=== PATIENT | female | born 1955 | race Caucasian/White ===

== ENCOUNTER 2022-07-11 15:50 | Outpatient (REF) | payer MEDICARE, OTHER, SELFPAY ==
[2022-07-12 15:46] LABS: Occult Blood Negative
== END 2022-07-11 15:51 ==
LOC: LAB 15:50
PROVIDERS: PCP Family Medicine; Visit Provider Family Medicine
DX: Z12.11 Encounter for screening for malignant neoplasm of colon (principal)
CPT/HCPCS: G0328

== ENCOUNTER 2022-08-24 09:55 | Outpatient (OUT) | payer MEDICARE, OTHER, SELFPAY ==
--- NOTE | 2022-08-24 | VEIN_ITS ---
Patient: DOLLY RICHTER Exam Date: 08/24/2022 : 1955 Gender:F Ordering : DR DMITRI CARPENTER M.D. Admission #: [id number] Family : Order #: [id number] CLICK HERE TO VIEW EXAM RADIOLOGY REPORT PROCEDURE: [facility] - OFFICE VISIT INITIAL COMPARISON: None. PROGRESS NOTES: 66-year-old female who presents with a 20 year history of lower extremity varicose veins. The patient complains of bulging discolored veins with leg pain. The patient's symptoms are bilaterally symmetric. The patient describes the pain as aching and dull rating the pain as a 6 on a scale of 10. Patient symptoms have increased significantly in the past several years. The patient does have some partial relief with rest leg elevation and support stockings which she has worn for approximately 20 years on and off. The patient had injection sclerotherapy in the but no procedures since. The patient's symptoms are exacerbated by prolonged sitting and standing. The patient denies any signs and symptoms to suggest arterial ischemia. The patient describes a family history significant for varicose veins in her mother. Emphysema in both parents. . Multiple grandchildren. Social occasional alcohol use. No illicit drug use or smoking. The patient's current medical history is significant for hyperlipidemia for which she is on Lipitor. History of cervical cancer with hysterectomy. Bilateral cataract surgery. No history of deep venous thrombus or pulmonary embolus. See separate history and physical for medication list. Nursing notes were reviewed. After history and physical exam I discussed at length the pathophysiology of venous hypertension and possible treatments, therapies and strategies available. We divided her disease and functional and cosmetic disease. Her functional disease does meet criteria for treatment of the great saphenous veins however given the short segments of disease and her overall physical appearance and history I did not think that she needed treatment at this time. The patient was given the option of intravenous laser ablation or conservative treatment with compression stockings. I did recommend conservative treatment that the patient agreed with. Ultrasound venous reflux study performed the same day was discussed at length with the patient. The report demonstrates mild short-segment venous insufficiency proximal bilateral great saphenous veins. Mild saphenofemoral junction reflux. PHYSICAL EXAM: The right leg demonstrates no significant varicose veins. Moderate to large amount of reticular and spider veins. No active ulceration, subcutaneous edema or skin discoloration The left leg demonstrates no significant varicose veins. Moderate to large amount of reticular and spider veins. No active ulceration, subcutaneous edema or skin discoloration Both thighs, legs and feet were symmetrically warm to the touch. Good posterior tibial and dorsalis pedis pulses were present bilaterally. VEIN/VC Facility EST Comprehensive IMPRESSION: 1. Mild bilateral great saphenous vein venous insufficiency with mild saphenofemoral junction reflux 2. No significant lower extremity varicose veins 3. No significant lower extremity subcutaneous edema 4. No significant flow significant arterial disease 5. CEAP: C2, Ep, As, Pr PLAN: 1. Continued use of compression stockings 2. The patient was offered self pay sclerotherapy for reticular and spider veins 3. Elevated legs and increased physical activity for symptomatic relief 4. Follow up in one year Nurse notes, history and physical were reviewed and confirmed, see attached forms. The nurse was present throughout the physical exam and consultation Dictated by: Dmitri Carpenter MD on 08/24/2022 at 13:37 Approved by: Dmitri Carpenter MD on 08/24/2022 at 13:42
--- NOTE | 2022-08-24 | VEIN_ITS ---
Patient: DOLLY RICHTER Exam Date: 08/24/2022 : 1955 Gender:F Ordering : DR DMITRI CARPENTER M.D. Admission #: [id number] Family : Order #: [id number] CLICK HERE TO VIEW EXAM RADIOLOGY REPORT PROCEDURE: VC EXT VENOUS REFLUX CASEY LMTD COMPARISON: None. INDICATIONS: Pain due to varicose veins of bilateral legs I83.813 TECHNIQUE: Duplex imaging of the lower extremity to assess the deep and superficial venous system for the presence of deep or superficial venous incompetence and to document the location and severity of disease. The study includes evaluation of the great saphenous vein (GSV), anterior accessory saphenous vein (AASV) and small saphenous vein (SSV). Patient scanned in reverse Trendelenburg and standing. FINDINGS: RIGHT LOWER EXTREMITY: Saphenofemoral Junction Reflux: Yes 7.4mm 1.0 sec GSV: Diam (mm) Reflux/ Time (sec) Proximal Thigh 6.6 Yes 0.7 Mid Thigh 3.8 No Distal Thigh 4.2 No Prox Calf 2.4 No Mid Calf 1.9 No Saphenopopliteal Junction Reflux: 3.3mm Yes 0.7 SSV: Proximal Calf 1.8 No Mid Calf 1.9 No AASV: Not present Thrombi: No acute or chronic thrombus visualized Compressibility: Normal Flow: Normal Cage Loader: Prox/med calf 4.8mm with 0s reflux. Tech Note: Incompetent SFJ. Patent varicose vein mid/med calf 1.8mm with 0s reflux. Patent varicose vein mid/med thigh 1.7mm with 0.8s reflux. LEFT LOWER EXTREMITY: Saphenofemoral Junction Reflux: Yes 9.0 mm 0.9 sec GSV: Diam (mm) Reflux/Time (sec) Proximal Thigh 5.2 No Mid Thigh 3.1 Yes 0.8 Distal Thigh 2.6 No Prox Calf 2.7 No Mid Calf 1.4 Saphenopopliteal Junction Relux: 1.3 mm No SSV: Proximal Calf 1.0 No Mid Calf 1.1 No AASV: Not present Thrombi: Compressibility: Flow: Cage Loader: Mid/med calf 2.4mm with 0s reflux. Mid/med thigh 2.9mm with 0s reflux. Tech Note: Incompetent SFJ. No patent varicose veins to document. CONCLUSION: 1. Mild short segment venous insufficiency proximal bilateral great saphenous veins Dictated by: Dmitri Carpenter MD on 08/24/2022 at 11:25 Approved by: Dmitri Carpenter MD on 08/24/2022 at 11:27
== END 2022-08-24 09:56 | disposition home or self-care (01) ==
LOC: VC 09:55
PROVIDERS: PCP Radiology Diagnostic Radiology; Visit Provider Radiology Diagnostic Radiology
DX: I83.813 Varicose veins of bilateral lower extremities with pain (principal)
CPT/HCPCS: 93970; G0463

== ENCOUNTER 2022-11-29 11:11 | Outpatient (OUT) | payer MEDICARE, OTHER, SELFPAY ==
[2022-11-29 11:40] LABS: Basophils Percent Auto 0.7 % (0.2-2.0); Eosinophils Absolute Auto 0.2 10^3/uL (0.0-0.7); Eosinophils Percent Auto 2.8 % (0.9-7.0); Hemoglobin 14.4 g/dL (12.0-16.0); Immature Granulocytes Abs Auto 0.01 10^3/uL (0.00-0.03); Immature Granulocytes Pct Auto 0.2 % (0.0-0.5); Lymphocytes Absolute Auto 1.7 10^3/uL (1.2-3.8); Lymphocytes Percent Auto 29.6 % (20.5-60.0); Mean Corpuscular HGB Conc 34.3 g/dL (29.9-35.2); Mean Corpuscular Hemoglobin 32.2 pg (26.7-34.0); Mean Platelet Volume 8.3 fL (9.5-13.5); Monocytes Absolute Auto 0.4 10^3/uL (0.3-0.8); Neutrophils Absolute Auto 3.4 10^3/uL (1.4-6.5); Neutrophils Percent Auto 59.7 % (43.0-75.0); Platelet Count 340 10^3/uL (150-450); Red Blood Count 4.47 10^6/uL (4.20-5.40); White Blood Count 5.7 10^3/uL (4.0-11.0)
[2022-11-29 11:52] LABS: Estimated Average Glucose 100 mg/dL; Glycohemoglobin A1C 5.1 % (4.5-6.2)
[2022-11-29 11:54] LABS: Alanine Aminotransferase 33 U/L (14-59); Albumin Level 3.7 g/dL (3.4-5.0); Alkaline Phosphatase 75 U/L (46-116); Anion Gap 9.3; Aspartate Amino Transferase 18 U/L (15-37); BUN Creatinine Ratio 13.8; Bilirubin Total 0.6 mg/dL (0.2-1.0); Calcium 9.2 mg/dL (8.5-10.1); Carbon Dioxide 30.9 mmol/L (21.0-32.0); Chloride 103 mmol/L (98-107); Cholesterol 171 mg/dL (<=200); Estimated GFR (African America >60 (>=60); Estimated GFR (Non-African Ame >60 (>=60); Globulin 3.7 g/dL; Glucose 91 mg/dL (74-106); HDL Cholesterol 57 mg/dL (40-60); Potassium 4.2 mmol/L (3.5-5.1); Sodium 139 mmol/L (136-145); Total Protein 7.4 g/dL (6.4-8.2); Triglycerides 80 mg/dL (<=150)
== END 2022-11-29 11:12 | disposition home or self-care (01) ==
LOC: LAB 11:11
PROVIDERS: PCP Family Medicine; Visit Provider Family Medicine
DX: E78.5 Hyperlipidemia, unspecified (principal); R73.9 Hyperglycemia, unspecified; Z79.899 Other long term (current) drug therapy
CPT/HCPCS: 36415; 80053; 80061; 83036; 85025

== ENCOUNTER 2023-05-31 10:57 | Outpatient (OUT) | payer MEDICARE, OTHER, SELFPAY ==
[2023-05-31 12:01] LABS: Estimated Average Glucose 103 mg/dL; Glycohemoglobin A1C 5.2 % (4.5-6.2)
[2023-05-31 13:06] LABS: Anion Gap 12.9; Carbon Dioxide 30.2 mmol/L (21.0-32.0); Chloride 105 mmol/L (98-107); Glucose 94 mg/dL (74-106); Potassium 4.1 mmol/L (3.5-5.1); Sodium 144 mmol/L (136-145)
[2023-05-31 13:07] LABS: Alanine Aminotransferase 31 U/L (14-59); Albumin Level 3.6 g/dL (3.4-5.0); Alkaline Phosphatase 79 U/L (46-116); Aspartate Amino Transferase 17 U/L (15-37); BUN Creatinine Ratio 14.3; Bilirubin Total 0.3 mg/dL (0.2-1.0); Calcium 9.6 mg/dL (8.5-10.1); Chol HDL Ratio 2.6; Cholesterol 194 mg/dL (<=200); Estimated GFR (African America >60 (>=60); Estimated GFR (Non-African Ame >60 (>=60); Globulin 3.7 g/dL; HDL Cholesterol 76 mg/dL (40-60); Total Protein 7.3 g/dL (6.4-8.2); Triglycerides 105 mg/dL (<=150)
[2023-05-31 13:08] LABS: Thyroid Stimulating Hormone 2.102 uIU/mL (0.358-3.740)
[2023-05-31 13:42] LABS: Basophils Percent Auto 0.6 % (0.2-2.0); Eosinophils Absolute Auto 0.1 10^3/uL (0.0-0.7); Eosinophils Percent Auto 1.7 % (0.9-7.0); Hematocrit 42.8 % (36.0-48.0); Hemoglobin 14.1 g/dL (12.0-16.0); Immature Granulocytes Abs Auto 0.02 10^3/uL (0.00-0.03); Immature Granulocytes Pct Auto 0.4 % (0.0-0.5); Lymphocytes Absolute Auto 1.7 10^3/uL (1.2-3.8); Lymphocytes Percent Auto 32.3 % (20.5-60.0); Mean Corpuscular HGB Conc 32.9 g/dL (29.9-35.2); Mean Corpuscular Hemoglobin 31.2 pg (26.7-34.0); Mean Corpuscular Volume 94.7 fL (81.0-99.0); Mean Platelet Volume 8.6 fL (9.5-13.5); Monocytes Absolute Auto 0.3 10^3/uL (0.3-0.8); Monocytes Percent Auto 5.8 % (1.7-12.0); Neutrophils Absolute Auto 3.2 10^3/uL (1.4-6.5); Neutrophils Percent Auto 59.2 % (43.0-75.0); Platelet Count 371 10^3/uL (150-450); Red Blood Count 4.52 10^6/uL (4.20-5.40); Red Cell Distribution Width 12.3 % (11.0-15.0); White Blood Count 5.4 10^3/uL (4.0-11.0)
== END 2023-05-31 10:58 | disposition home or self-care (01) ==
LOC: LAB 11:00
PROVIDERS: PCP Family Medicine; Visit Provider Family Medicine
DX: R53.82 Chronic fatigue, unspecified (principal); Z79.899 Other long term (current) drug therapy; R73.9 Hyperglycemia, unspecified; E78.5 Hyperlipidemia, unspecified; R63.5 Abnormal weight gain
CPT/HCPCS: 36415; 80053; 80061; 82607; 82670; 83036; 84144; 84403; 84443; 85025

== ENCOUNTER 2023-05-31 11:04 | Outpatient (OUT) | payer MEDICARE, OTHER, SELFPAY ==
--- OUTSIDE RECORDS SUMMARY | 2023-05-31 11:25 | XMS_ITS | CCD ---
Author Organization [facility] Care Team Providers Care Cw Operator Name Role Phone Ricky Dong Unavailable Ricky Newton Unavailable LETITIA, DR GARCÍA Admitting Unavailable LETITIA, DR GARCÍA Attending Unavailable LETITIA, DR GARCÍA Primary Care Unavailable LETITIA, DR GARCÍA Consulting Unavailable LETITIA, DR GARCÍA Admitting Unavailable LETITIA, DR GARCÍA Attending Unavailable LETITIA, DR GARCÍA Primary Care Unavailable LETITIA, DR GARCÍA Consulting Unavailable CRYSTAL CONTRERAS Attending Unavailable Allergies Allergy Classification Reported Allergen(s) Allergy Type Date of Onset Reaction(s) Facility (18 sources) Propofol Drug Allergy asperated [employer] Other (18 sources) [facility] ([facility]) steroids caused eye pressure to go up Propensity to adverse reactions Unknown [employer] Other (1 source) cyclobenzaprine Drug Allergy [facility] (1 source) Phenprocoumon Drug Allergy [facility] (1 source) Propofol Drug Allergy [facility] Medications Current Medications Medication Drug Class(es) Dates Sig (Normalized) Sig (Original) acetaminophen 250 mg / aspirin 250 mg / caffeine 65 mg oral tablet (14 sources) Platelet Aggregation Inhibitor, Nonsteroidal Anti-inflammatory Drug, Central Nervous System Stimulant, Methylxanthine take 2 tablets by mouth every twenty-four hours Excedrin Migraine 250-250-65 MG 2 tablets Orally Once a day prn Active acetaminophen 300 mg / butalbital 50 mg / caffeine 40 mg oral capsule (2 sources) Barbiturate, Central Nervous System Stimulant, Methylxanthine Start: 12-04-2022 take 1 capsule by mouth every four hours Fioricet 50-300-40 MG 1 capsule Orally every 4 hrs for 5 days Nov, Active acyclovir 0.05 mg/mg topical ointment (18 sources) Herpesvirus Nucleoside Analog DNA Polymerase Inhibitor, Herpes Simplex Virus Nucleoside Analog DNA Polymerase Inhibitor, Herpes Zoster Virus Nucleoside Analog DNA Polymerase Inhibitor Start: 11-17-2020 Zovirax 5 % 1 application to affected area Externally five times a day as directed prn Nov, Active Start: 05-20-2015 Zovirax 5 % 1 application to affected area 5 times a day Externally Five times a day as directed May, Active Alive Once Daily Womens 50+ - (12 sources) Alive Once Daily Womens 50+ - as directed Orally Not-Taking Alive Once Daily Womens 50+ - as directed Orally Active ALPRAZolam 0.25 mg oral tablet (18 sources) Benzodiazepine Start: 05-18-2017 Xanax 0.25 MG 1 tablet Orally q8-12 hrs prn prn May, Active amoxicillin 875 mg oral tablet (3 sources) Penicillin-class Antibacterial Start: 05-12-2022 take 1 tablet by mouth every twelve hours Amoxicillin 875 MG 1 tablet Orally Twice a day for 10 days May, Active Apple Cider Vinegar (11 sources) Apple Cider Vinegar Active atorvastatin 10 mg oral tablet (18 sources) HMG-CoA Reductase Inhibitor take 1 tablet by mouth every twenty-four hours Lipitor 10 MG 1 tablet Orally Once a day Active Co Enzyme Q-10 (18 sources) Co Enzyme Q-10 Active Digestive Health Probiotic - (18 sources) Digestive Health Probiotic - as directed Orally Active famciclovir 500 mg oral tablet (18 sources) Herpes Simplex Virus Nucleoside Analog DNA Polymerase Inhibitor Start: 11-16-2020 take 1 tablet by mouth every eight hours Famciclovir 500 MG 1 tablet Orally tid for 10 days prn Nov, Active Fiorinal/Codeine #3 93-107-82-30 MG (16 sources) Start: 12-08-2022 take 1 capsule by mouth every four hours as needed Fiorinal/Codeine #3 31-374-21-30 MG 1 capsule Orally every 4 hrs prn for 5 days Dec, Active Start: 12-08-2016 take 1 capsule by [facility] every four hours as needed Fiorinal/Codeine #3 85-069-76-30 MG 1 capsule Orally every 4 hrs prn prn Dec, Active Start: 12-08-2016 take 1 capsule by mo uth every four hours as needed Fiorinal/Codeine #3 01-796-23-30 MG 1 capsule Orally every 4 hrs prn for 5 days prn Dec, Active Start: 12-08-2016 take 1 capsule by mo uth every four hours as needed Fiorinal/Codeine #3 34-553-01-30 MG 1 capsule Orally every 4 hrs prn Dec, Active Start: 12-08-2016 take 1 capsule by mo uth every four hours as needed Fiorinal/Codeine #3 [id number] MG 1 capsule Orally every 4 hrs prn for 5 days Dec, Active ibuprofen 200 mg oral tablet (18 sources) Nonsteroidal Anti-inflammatory Drug take 1 tablet by mouth three times daily at mealtime as needed Ibuprofen 200 MG 1 tablet with food or milk as needed Orally Three times a day prn Active Magnesium (18 sources) Magnesium 400 MG as directed Orally Active Multivitamin preparation (6 sources) Multivitamin Act vik Turmeric extract (11 sources) Turmeric Active vitamin B12 (12 sources) Vitamin B12 Vitamin B 12 Act vik Vitamin C 250 MG (3 sources) take 1 tablet by mouth once daily Vitamin C 250 MG 1 tablet Orally Once a day for 30 day(s) Active Vitamin D (18 sources) Vitamin D Active Completed/Discontinued Medications Medication Drug Class(es) Dates Sig (Normalized) Sig (Original) amoxicillin 875 mg / clavulanate 125 mg oral tablet (2 sources) Penicillin-class Antibacterial Start: 09-08-2020 take 1 tablet by mouth twice daily at mealtime Amoxicillin-Pot Clavulanate 875-125 MG 1 tablet Orally bid with food for 7 days Sep, Not-Taking ascorbic acid 250 mg chewable tablet (4 sources) Vitamin C take 1 tablet by mouth every twenty-four hours Vitamin C 250 MG 1 tablet Orally Once a day for 30 day(s) Not-Taking cefdinir 300 mg oral capsule (2 sources) Cephalosporin Antibacterial Start: 12-25-2019 take 2 capsules by mouth once daily at mealtime Cefdinir 300 MG 2 capsules Orally qd with food for 7 days Dec, Not-Taking diphenhydrAMINE hydrochloride 25 mg oral tablet (2 sources) Histamine-1 Receptor Antagonist Start: 11-10-2019 take 1 tablet by mouth every twenty-four hours diphenhydrAMINE HCl 25 MG 1 tablet at bedtime as needed Orally Once a day Nov, Not-Taking Elderberry preparation (7 sources) Elderberry 575 MG/5ML 5 ml Orally Not-Taking Elderberry 575 M G/5ML 5 ml Orally Active Ketorolac (15 sources) Nonsteroidal Anti-inflammatory Drug, Cyclooxygenase Inhibitor Start: 10-09-2013 Toradol per 15 mg Oct, 60 mg lansoprazole 30 mg delayed release oral capsule (9 sources) Proton Pump Inhibitor Start: 05-18-2021 take 1 capsule by mouth every twenty-four hours Prevacid 30 MG 1 capsule before a meal Orally Once a day for 30 day(s) May, Not-Taking [place] 3 1000 MG (2 sources) take 1 capsule by mouth once daily [place] 3 1000 MG 1 capsule Orally Once a day Not-Taking Problems Active Problems Problem Classification Problem Date Documented Da te Episodic/Chronic Acute and chronic tonsillitis (20 sources) Amygdalolith; Translations: [Other chronic diseases of tonsils and adenoids] Onset: 07-07-2021 Resolved: 07-07-2021 Chronic Anxiety disorders (20 sources) Anxiety; Translations: [Anxiety disorder, unspecified] Onset: 11-16-2020 Resolved: 07-07-2021 Chronic Cardiac dysrhythmias (3 sources) Palpitations; Translations: [Tachycardia, unspecified] Onset: 11-16-2020 Resolved: 05-18-2021 Episodic Diabetes mellitus without complication (4 sources) Hyperglycemia, unspecified; Translations: [Hyperglycemia R73.9] Onset: 11-16-2020 Resolved: 05-18-2021 Episodic Disorders of lipid metabolism (20 sources) Hyperlipidemia; Translations: [Hyperlipidemia, unspecified] Onset: 11-16-2020 Resolved: 05-18-2021 Chronic Genitourinary symptoms and ill-defined conditions (3 sources) Nocturia; Translations: [Hematuria, unspecified] Onset: 11-16-2020 Resolved: 05-18-2021 Episodic Headache; including migraine (20 sources) Migraine; Translations: [Migraine, unspecified, not intractable, without status migrainosus] Onset: 05-18-2021 Resolved: 05-18-2021 Chronic Neoplasms of unspecified nature or uncertain behavior (18 sources) Thrombocytosis; Translations: [Essential (hemorrhagic) thrombocythemia] Chronic Other aftercare (4 sources) Other senior living (current) drug therapy; Translations: [Other termite helper (current) drug therapy Z79.899] Onset: 11-16-2020 Resolved: 05-18-2021 Episodic Other connective tissue disease (1 source) Pain in leg, unspecified Episodic Other diseases of bladder and urethra (18 sources) Disorder of bladder; Translations: [Other specified disorders of bladder] Chronic Other nutritional; endocrine; and metabolic disorders (3 sources) Abnormal weight gain; Translations: [Weight gain R63.5] Onset: 11-16-2020 Resolved: 05-18-2021 Episodic Other nutritional; endocrine; and metabolic disorders (1 source) Abnormal weight loss; Translations: [ABNORMAL WEIGHT LOSS] Onset: 05-29-2022 Episodic Other screening for suspected conditions (not mental disorders or infectious disease) (3 sources) Encounter for screening mammogram for malignant neoplasm of breast; Translations: [Abnormal blood-gas level] Onset: 11-16-2020 Resolved: 05-18-2021 Episodic Other upper respiratory infections (18 sources) Sinusitis; Translations: [Chronic sinusitis, unspecified] Chronic Otitis media and related conditions (3 sources) Other specified disorders of Eustachian tube, right ear; Translations: [Otitis media, unspecified, unspecified ear] Episodic Residual codes; unclassified (13 sources) Sleep apnea; Translations: [Sleep apnea, unspecified] Chronic Residual codes; unclassified (13 sources) Daytime somnolence; Translations: [Other hypersomnia] Chronic Residual codes; unclassified (1 source) Sleep apnea, unspecified Onset: 07-07-2021 Resolved: 07-07-2021 Chronic Residual codes; unclassified (1 source) Other hypersomnia Onset: 07-07-2021 Resolved: 07-07-2021 Chronic Residual codes; unclassified (18 sources) Insomnia; Translations: [Insomnia, unspecified] Episodic Residual codes; unclassified (1 source) Other specified health status Episodic Residual codes; unclassified (1 source) Insomnia, unspecified Episodic Viral infection (4 sources) Herpesviral vesicular dermatitis; Translations: [Cold sore B00.1] Onset: 11-16-2020 Resolved: 05-18-2021 Episodic Past or Other Problems Problem Classification Problem Date Documented Da te Episodic/Chronic Headache; including migraine (1 source) Headache; Translations: [Cephalgia R51] Onset: 11-16-2020 Resolved: 11-16-2020 Episodic Malaise and fatigue (3 sources) Other fatigue; Translations: [Fatigue R53.83] Onset: 11-16-2020 Resolved: 08-02-2021 Episodic Other gastrointestinal disorders (1 source) Heartburn Onset: 05-18-2021 Resolved: 05-18-2021 Episodic Other inflammatory condition of skin (1 source) Lichen simplex chronicus Onset: 05-18-2021 Resolved: 05-18-2021 Episodic Other lower respiratory disease (2 sources) Snoring; Translations: [Snoring R06.83] Onset: 11-16-2020 Resolved: 08-02-2021 Episodic Other lower respiratory disease (2 sources) Apnea, not elsewhere classified; Translations: [Apnea R06.81] Onset: 11-16-2020 Resolved: 02-16-2021 Episodic Other upper respiratory infections (1 source) Acute sinusitis, unspecified Onset: 02-16-2021 Resolved: 02-16-2021 Episodic Residual codes; unclassified (1 source) Body mass index (BMI) 22.0-22.9, adult Onset: 08-02-2021 Resolved: 08-02-2021 Episodic Residual codes; unclassified (1 source) Body mass index (BMI) 23.0-23.9, adult Onset: 07-07-2021 Resolved: 07-07-2021 Episodic Results Test Name Value Interpretation Reference Range Facility CBC AUTO DIFFon 05-25-2022 BASO # 0.0 103/ul Normal 0.0-0.1 [facility] Comment on above: Performed By: #### C BC #### [facility] [address] [place] [address] Dr. Kristy Hansen Basophils/100 WBC (Bld) 0.5 % Normal 0.2-2.0 [facility] Comment on above: Performed By: #### C BC #### [facility] [address] [address] [address] Kristy Hansen EO # 0.2 103/ul Normal 0.0-0.7 [facility] Comment on above: Performed By: #### C BC #### [facility] [address] [place] [address] Dr. Kristy Hansen Eosinophils/100 WBC (Bld) 4.2 % Normal 0.9-7.0 [facility] Comment on above: Performed By: #### C BC #### [facility] [address] [place] [address] Dr. Kristy Hansen Erythrocyte distribution width (RBC) [Ratio] 12.5 % Normal 11.0-15.0 [facility] Comment on above: Performed By: #### C BC #### [facility] [address] [place] [address] Dr. Kristy Hansen Hematocrit (Bld) [Volume fraction] 43.6 % Normal 36.0-48.0 [facility] Comment on above: Performed By: #### C BC #### [facility] [address] [place] [address] Dr. Kristy Hansen Hemoglobin (Bld) [Mass/Vol] 15.0 g/dL Normal 12.0-16.0 [facility] Comment on above: Performed By: #### C BC #### [facility] [address] [place] [address] Dr. Kristy Hansen IG # 0.01 10e3/ul Normal 0.00-0.03 [facility] Comment on above: Performed By: #### C BC #### [facility] [address] [place] [address] Dr. Kristy Hansen IG % 0.2 % Normal 0.0-0.5 [facility] Comment on above: Performed By: #### C BC #### [facility] [address] [place] [address] Dr. Kristy Hansen LYMPH # 2.0 103/ul Normal 1.2-3.8 [facility] Comment on above: Performed By: #### C BC #### [facility] [address] [place] [address] Dr. Kristy Hansen Lymphocytes/100 WBC (Bld) 36.3 % Normal 20.5-60.0 [facility] Comment on above: Performed By: #### C BC #### [facility] [address] [place] [address] Dr. Kristy Hansen MANUAL DIFF REQ NO Normal [facility] Comment on above: Performed By: #### C BC #### [facility] [address] [place] [address] Dr. Kristy Hansen MCH (RBC) [Entitic mass] 31.7 pg Normal 26.7-34.0 [facility] Comment on above: Performed By: #### C BC #### [facility] [address] [place] [address] Dr. Kristy Hansen MCHC (RBC) [Mass/Vol] 34.4 g/dL Normal 29.9-35.2 [facility] Comment on above: Performed By: #### C BC #### [facility] [address] [place] [address] Dr. Kristy Hansen MCV (RBC) [Entitic vol] 92.2 fL Normal 81.0-99.0 [facility] Comment on above: Performed By: #### C BC #### [facility] [address] [place] [address] Dr. Kristy aHnsen MONO # 0.4 103/ul Normal 0.3-0.8 [facility] Comment on above: Performed By: #### C BC #### [facility] [address] [place] [address] Dr. Kristy Hansen Monocytes/100 WBC (Bld) 6.5 % Normal 1.7-12.0 [facility] Comment on above: Performed By: #### C BC #### [facility] [address] [place] [address] Dr. Kristy Hansen NEUT # 2.9 103/ul Normal 1.4-6.5 [facility] Comment on above: Performed By: #### C BC #### [facility] [address] [place] [address] Dr. Kristy Hansen Neutrophils/100 WBC (Bld) 52.3 % Normal 43.0-75.0 [facility] Comment on above: Performed By: #### C BC #### [facility] [address] [place] [address] Dr. Kristy Hansen Platelet mean volume (Bld) [Entitic vol] 7.9 fL Critically low 9.5-13.5 [facility] Comment on above: Performed By: #### C BC #### [facility] [address] [place] [address] Dr. Kristy Hansen PLT 310 103/ul Normal 150-450 [facility] Comment on above: Performed By: #### C BC #### [facility] [address] [place] [address] Dr. Kristy Hansen RBC 4.73 106/ul Normal 4.20-5.40 [facility] Comment on above: Performed By: #### C BC #### [facility] [address] [place] [address] Dr. Kristy Hansen WBC 5.5 103/ul Normal 4.0-11.0 [facility] Comment on above: Performed By: #### C BC #### [facility] [address] [place] [address] Dr. Kristy Hansen GLYCOHEMOGLOBIN A1Con 2022 ADA RECOMMENDATION SEE BELOW Normal [facility] Comment on above: Result Comment: ADA RECOMMENDED LIMIT 4.0 - 6.0 ADA THERAPEUTIC TARGET < 7.0 ACTION SUGGESTED > 7.0 Performed By: #### A 1C #### [facility] [address] [place] [address] Dr. Kristy Hansen Glucose [Mass/Vol] 105 mg/dL Normal [facility] Comment on above: Performed By: #### A 1C #### [facility] [address] [place] [address] Dr. Kristy Hansen HbA1c (Bld) [Mass fraction] 5.3 % Normal 4.5-6.2 [facility] Comment on above: Performed By: #### A 1C #### [facility] [address] [place] [address] Dr. Kristy Hansen LIPID PROFILEon 05-25-2022 CHOL-HDL RATIO NORM SEE BELOW Normal [facility] Comment on above: Result Comment: 3.3 - 4.4 LOW RISK 4.4 - 7.1 AVERAGE RISK 7.1 - 11.0 MODERATE RISK >11.0 HIGH RISK Performed By: #### L IPID, CMP, TSH #### [facility] [address] [address] [address] Kristy Hansen Cholesterol [Mass/Vol] 193 mg/dL Normal <=200 [facility] Comment on above: Performed By: #### L IPID, CMP, TSH #### [facility] [address] [address] [address] Kristy Hansen Cholesterol in HDL [Mass/Vol] 75 mg/dL Critically high 40-60 [facility] Comment on above: Performed By: #### L IPID, CMP, TSH #### [facility] [address] [address] [address] Kristy Hansen Cholesterol in LDL [Mass/Vol] 107.2 mg/dL Normal [facility] Comment on above: Performed By: #### L IPID, CMP, TSH #### [facility] [address] [address] [address] Kristy Hansen Cholesterol.total/Cho lesterol in HDL [Mass ratio] 2.6 {ratio} Normal [facility] Comment on above: Performed By: #### L IPID, CMP, TSH #### [facility] [address] [address] [address] Kristy Hansen HDL NORMAL > or = 60 mg/dl - LOW CARDIOVASCULAR RISK <40 mg/dl - HIGH CARDIOVASCULAR RISK Normal [facility] Comment on above: Performed By: #### L IPID, CMP, TSH #### [facility] [address] [address] [address] Kristy Hansen LDL CALC NORMAL SEE BELOW Normal [facility] Comment on above: Result Comment: <100 mg/dl OPTIMAL 100 - 129 mg/dl NEAR OR ABOVE OPTIMAL 130 - 159 mg/dl BORDERLINE HIGH 160 - 189 mg/dl HIGH >190 mg/dl VERY HIGH Performed By: #### L IPID, CMP, TSH #### [facility] [address] [address] [address] Kristy Hansen Triglyceride [Mass/Vol] 54 mg/dL Normal <=150 [facility] Comment on above: Performed By: #### L IPID, CMP, TSH #### [facility] [address] [address] [address] Kristy Hansen VLDL CALC 10.8 mg/dL Normal [facility] Comment on above: Performed By: #### L IPID, CMP, TSH #### [facility] [address] [address] [address] Kristy Hansen PROF 14(COMP METB)on 023 Albumin [Mass/Vol] 3.7 g/dL Normal 3.4-5.0 [facility] Comment on above: Performed By: #### L IPID, CMP, TSH #### [facility] [address] [place] [address] Dr. Kristy Hansen Albumin/Globulin [Mass ratio] 0.9 {ratio} Normal [facility] Comment on above: Performed By: #### L IPID, CMP, TSH #### [facility] [address] [place] [address] Dr. Kristy Hansen ALP [Catalytic activity/Vol] 82 U/L Normal 46-116 [facility] Comment on above: Performed By: #### L IPID, CMP, TSH #### [facility] [address] [place] [address] Dr. Kristy Hansen ALT [Catalytic activity/Vol] 41 U/L Normal 14-59 [facility] Comment on above: Performed By: #### L IPID, CMP, TSH #### [facility] [address] [address] [address] Kristy Hansen Anion gap [Moles/Vol] 12.2 mmol/L Normal [facility] Comment on above: Performed By: #### L IPID, CMP, TSH #### [facility] [address] [place] [address] Dr. Kristy Hansen AST [Catalytic activity/Vol] 23 U/L Normal 15-37 [facility] Comment on above: Performed By: #### L IPID, CMP, TSH #### [facility] [address] [place] [address] Dr. Kristy Hansen Bilirubin [Mass/Vol] 0.4 mg/dL Normal 0.2-1.0 [facility] Comment on above: Performed By: #### L IPID, CMP, TSH #### [facility] [address] [address] [address] Kristy Hansen Calcium [Mass/Vol] 9.5 mg/dL Normal 8.5-10.1 [facility] Comment on above: Performed By: #### L IPID, CMP, TSH #### [facility] [address] [address] [address] Kristy Hansen Chloride [Moles/Vol] 104 mmol/L Normal 98-107 [facility] Comment on above: Performed By: #### L IPID, CMP, TSH #### [facility] [address] [place] [address] Dr. Kristy Hansen CO2 [Moles/Vol] 28.9 mmol/L Normal 21.0-32.0 [facility] Comment on above: Performed By: #### L IPID, CMP, TSH #### [facility] [address] [place] [address] Dr. Kristy Hansen Creatinine [Mass/Vol] 0.69 mg/dL Normal 0.55-1.02 [facility] Comment on above: Performed By: #### L IPID, CMP, TSH #### [facility] [address] [place] [address] Dr. Kristy Hansen EGFR-AF AUSTRIAN >60 Normal >=60 [facility] Comment on above: Performed By: #### L IPID, CMP, TSH #### [facility] [address] [place] [address] Dr. Kristy Hansen EGFR-NON AF AUSTRIAN >60 Normal >=60 [facility] Comment on above: Performed By: #### L IPID, CMP, TSH #### [facility] [address] [place] [address] Dr. Kristy Hansen Globulin (S) [Mass/Vol] 3.9 g/dL Normal [facility] Comment on above: Performed By: #### L IPID, CMP, TSH #### [facility] [address] [address] [address] Kristy Hansen Glucose [Mass/Vol] 83 mg/dL Normal 74-106 [facility] Comment on above: Performed By: #### L IPID, CMP, TSH #### [facility] [address] [address] [address] Kristy Hansen Potassium [Moles/Vol] 4.1 mmol/L Normal 3.5-5.1 [facility] Comment on above: Performed By: #### L IPID, CMP, TSH #### [facility] [address] [address] [address] Kristy Hansen Protein [Mass/Vol] 7.6 g/dL Normal 6.4-8.2 [facility] Comment on above: Performed By: #### L IPID, CMP, TSH #### [facility] [address] [address] [address] Kristy Hansen Sodium [Moles/Vol] 141 mmol/L Normal 136-145 [facility] Comment on above: Performed By: #### L IPID, CMP, TSH #### [facility] [address] [address] [address] Kristy Hansen Urea nitrogen [Mass/Vol] 8.0 mg/dL Normal 7.0-18.0 [facility] Comment on above: Performed By: #### L IPID, CMP, TSH #### [facility] [address] [address] [address] Kristy Hansen Urea nitrogen/Creatinine [Mass ratio] 11.6 mg/mg Normal [facility] Comment on above: Performed By: #### L IPID, CMP, TSH #### [facility] [address] [address] [address] Kristy Hansen TSHon 05-25-2022 TSH 1.896 uIU/mL Normal 0.358-3.740 [facility] [facility] Comment on above: Performed By: #### L IPID, CMP, TSH #### [facility] [address] [address] [address] Kristy Hansen CBC AUTO DIFFon 11-17-2021 BASO # 0.0 103/ul Normal 0.0-0.1 [facility] Comment on above: Performed By: #### C BC #### [facility] [address] [place] [address] Dr. Kristy Hansen Basophils/100 WBC (Bld) 0.8 % Normal 0.2-2.0 [facility] Comment on above: Performed By: #### C BC #### [facility] [address] [place] [address] Dr. Kristy Hansen EO # 0.1 103/ul Normal 0.0-0.7 [facility] Comment on above: Performed By: #### C BC #### [facility] [address] [place] [address] Dr. Kristy Hansen Eosinophils/100 WBC (Bld) 2.5 % Normal 0.9-7.0 [facility] Comment on above: Performed By: #### C BC #### [facility] [address] [place] [address] Dr. Kristy Hansen Erythrocyte distribution width (RBC) [Ratio] 12.4 % Normal 11.0-15.0 [facility] Comment on above: Performed By: #### C BC #### [facility] [address] [place] [address] Dr. Kristy Hansen Hematocrit (Bld) [Volume fraction] 41.3 % Normal 36.0-48.0 [facility] Comment on above: Performed By: #### C BC #### [facility] [address] [place] [address] Dr. Kristy Hansen Hemoglobin (Bld) [Mass/Vol] 13.8 g/dL Normal 12.0-16.0 [facility] Comment on above: Performed By: #### C BC #### [facility] [address] [place] [address] Dr. Kristy Hansen IG # 0.01 10e3/ul Normal 0.00-0.03 [facility] Comment on above: Performed By: #### C BC #### [facility] [address] [place] [address] Dr. Kristy Hansen IG % 0.2 % Normal 0.0-0.5 [facility] Comment on above: Performed By: #### C BC #### [facility] [address] [place] [address] Dr. Kristy Hansen LYMPH # 2.0 103/ul Normal 1.2-3.8 [facility] Comment on above: Performed By: #### C BC #### [facility] [address] [place] [address] Dr. Kristy Hansen Lymphocytes/100 WBC (Bld) 40.3 % Normal 20.5-60.0 [facility] Comment on above: Performed By: #### C BC #### [facility] [address] [place] [address] Dr. Kristy Hansen MANUAL DIFF REQ NO Normal [facility] Comment on above: Performed By: #### C BC #### [facility] [address] [place] [address] Dr. Kristy Hansen MCH (RBC) [Entitic mass] 31.6 pg Normal 26.7-34.0 [facility] Comment on above: Performed By: #### C BC #### [facility] [address] [place] [address] Dr. Kristy Hansen MCHC (RBC) [Mass/Vol] 33.4 g/dL Normal 29.9-35.2 [facility] Comment on above: Performed By: #### C BC #### [facility] [address] [place] [address] Dr. Kristy Hansen MCV (RBC) [Entitic vol] 94.5 fL Normal 81.0-99.0 [facility] Comment on above: Performed By: #### C BC #### [facility] [address] [place] [address] Dr. Kristy Hansen MONO # 0.4 103/ul Normal 0.3-0.8 [facility] Comment on above: Performed By: #### C BC #### [facility] [address] [place] [address] Dr. Kristy Hansen Monocytes/100 WBC (Bld) 8.5 % Normal 1.7-12.0 [facility] Comment on above: Performed By: #### C BC #### [facility] [address] [place] [address] Dr. Kristy Hansen NEUT # 2.3 103/ul Normal 1.4-6.5 [facility] Comment on above: Performed By: #### C BC #### [facility] [address] [place] [address] Dr. Kristy Hansen Neutrophils/100 WBC (Bld) 47.7 % Normal 43.0-75.0 [facility] Comment on above: Performed By: #### C BC #### [facility] [address] [place] [address] Dr. Kristy Hansen Platelet mean volume (Bld) [Entitic vol] 8.3 fL Critically low 9.5-13.5 [facility] Comment on above: Performed By: #### C BC #### [facility] [address] [place] [address] Dr. Kristy Hansen PLT 312 103/ul Normal 150-450 [facility] Comment on above: Performed By: #### C BC #### [facility] [address] [place] [address] Dr. Kristy Hansen RBC 4.37 106/ul Normal 4.20-5.40 [facility] Comment on above: Performed By: #### C BC #### [facility] [address] [place] [address] Dr. Kristy Hansen WBC 4.8 103/ul Normal 4.0-11.0 [facility] Comment on above: Performed By: #### C BC #### [facility] [address] [place] [address] Dr. Kristy Hansen GLYCOHEMOGLOBIN A1Con 2021 ADA RECOMMENDATION SEE BELOW Normal [facility] Comment on above: Result Comment: ADA RECOMMENDED LIMIT 4.0 - 6.0 ADA THERAPEUTIC TARGET < 7.0 ACTION SUGGESTED > 7.0 Performed By: #### A 1C #### [facility] [address] [place] [address] Dr. Kristy Hansen Glucose [Mass/Vol] 100 mg/dL Normal [facility] Comment on above: Performed By: #### A 1C #### [facility] [address] [address] [address] Kristy Hansen HbA1c (Bld) [Mass fraction] 5.1 % Normal 4.5-6.2 [facility] Comment on above: Performed By: #### A 1C #### [facility] [address] [place] [address] Dr. Kristy Hansen LIPID PROFILEon 11-17-2021 CHOL-HDL RATIO NORM SEE BELOW Normal [facility] Comment on above: Result Comment: 3.3 - 4.4 LOW RISK 4.4 - 7.1 AVERAGE RISK 7.1 - 11.0 MODERATE RISK >11.0 HIGH RISK Performed By: #### C MP, LIPID #### [facility] [address] [place] [address] Dr. Kristy Hansen Cholesterol [Mass/Vol] 146 mg/dL Normal <=200 [facility] Comment on above: Performed By: #### C MP, LIPID #### [facility] [address] [place] [address] Dr. Kristy Hansen Cholesterol in HDL [Mass/Vol] 65 mg/dL Critically high 40-60 [facility] Comment on above: Performed By: #### C MP, LIPID #### [facility] [address] [place] [address] Dr. Kristy Hansen Cholesterol in LDL [Mass/Vol] 70.4 mg/dL Normal [facility] Comment on above: Performed By: #### C MP, LIPID #### [facility] [address] [place] [address] Dr. Kristy Hansen Cholesterol.total/Cho lesterol in HDL [Mass ratio] 2.2 {ratio} Normal [facility] Comment on above: Performed By: #### C MP, LIPID #### [facility] [address] [place] [address] Dr. Kristy Hansen HDL NORMAL > or = 60 mg/dl - LOW CARDIOVASCULAR RISK <40 mg/dl - HIGH CARDIOVASCULAR RISK Normal [facility] Comment on above: Performed By: #### C MP, LIPID #### [facility] [address] [place] [address] Dr. Kristy Hansen LDL CALC NORMAL SEE BELOW Normal [facility] Comment on above: Result Comment: <100 mg/dl OPTIMAL 100 - 129 mg/dl NEAR OR ABOVE OPTIMAL 130 - 159 mg/dl BORDERLINE HIGH 160 - 189 mg/dl HIGH >190 mg/dl VERY HIGH Performed By: #### C MP, LIPID #### [facility] [address] [place] [address] Dr. Kristy Hansen Triglyceride [Mass/Vol] 53 mg/dL Normal <=150 [facility] Comment on above: Performed By: #### C MP, LIPID #### [facility] [address] [place] [address] Dr. Kristy Hansen VLDL CALC 10.6 mg/dL Normal [facility] Comment on above: Performed By: #### C MP, LIPID #### [facility] [address] [place] [address] Dr. Kristy Hansen PROF 14(COMP METB)on 022 Albumin [Mass/Vol] 3.6 g/dL Normal 3.4-5.0 [facility] Comment on above: Performed By: #### C MP, LIPID #### [facility] [address] [place] [address] Dr. Kristy Hansen Albumin/Globulin [Mass ratio] 1.1 {ratio} Normal [facility] Comment on above: Performed By: #### C MP, LIPID #### [facility] [address] [place] [address] Dr. Kristy Hansen ALP [Catalytic activity/Vol] 66 U/L Normal 46-116 [facility] Comment on above: Performed By: #### C MP, LIPID #### [facility] [address] [place] [address] Dr. Kristy Hansen ALT [Catalytic activity/Vol] 27 U/L Normal 14-59 [facility] Comment on above: Performed By: #### C MP, LIPID #### [facility] [address] [place] [address] Dr. Kristy Hansen Anion gap [Moles/Vol] 9.1 mmol/L Normal [facility] Comment on above: Performed By: #### C MP, LIPID #### [facility] [address] [place] [address] Dr. Kristy Hansen AST [Catalytic activity/Vol] 15 U/L Normal 15-37 [facility] Comment on above: Performed By: #### C MP, LIPID #### [facility] [address] [place] [address] Dr. Kristy Hansen Bilirubin [Mass/Vol] 0.5 mg/dL Normal 0.2-1.0 [facility] Comment on above: Performed By: #### C MP, LIPID #### [facility] [address] [place] [address] Dr. Kristy Hansen Calcium [Mass/Vol] 9.1 mg/dL Normal 8.5-10.1 [facility] Comment on above: Performed By: #### C MP, LIPID #### [facility] [address] [place] [address] Dr. Kristy Hansen Chloride [Moles/Vol] 107 mmol/L Normal 98-107 [facility] Comment on above: Performed By: #### C MP, LIPID #### [facility] [address] [place] [address] Dr. Kristy Hansen CO2 [Moles/Vol] 29.9 mmol/L Normal 21.0-32.0 [facility] Comment on above: Performed By: #### C MP, LIPID #### [facility] [address] [place] [address] Dr. Kristy Hansen Creatinine [Mass/Vol] 0.70 mg/dL Normal 0.55-1.02 [facility] Comment on above: Performed By: #### C MP, LIPID #### [facility] [address] [place] [address] Dr. Kristy Hansen EGFR-AF AUSTRIAN >60 Normal >=60 [facility] Comment on above: Performed By: #### C MP, LIPID #### [facility] [address] [place] [address] Dr. Kristy Hansen EGFR-NON AF AUSTRIAN >60 Normal >=60 [facility] Comment on above: Performed By: #### C MP, LIPID #### [facility] [address] [address] [address] Kristy Hansen Globulin (S) [Mass/Vol] 3.3 g/dL Normal [facility] Comment on above: Performed By: #### C MP, LIPID #### [facility] [address] [address] [address] Kristy Hansen Glucose [Mass/Vol] 91 mg/dL Normal 74-106 [facility] Comment on above: Performed By: #### C MP, LIPID #### [facility] [address] [address] [address] Kristy Hansen Potassium [Moles/Vol] 4.0 mmol/L Normal 3.5-5.1 [facility] Comment on above: Performed By: #### C MP, LIPID #### [facility] [address] [place] [address] Dr. Kristy Hansen Protein [Mass/Vol] 6.9 g/dL Normal 6.4-8.2 [facility] Comment on above: Performed By: #### C MP, LIPID #### [facility] [address] [place] [address] Dr. Kristy Hansen Sodium [Moles/Vol] 142 mmol/L Normal 136-145 [facility] Comment on above: Performed By: #### C MP, LIPID #### [facility] [address] [place] [address] Dr. Kristy Hansen Urea nitrogen [Mass/Vol] 10.0 mg/dL Normal 7.0-18.0 [facility] Comment on above: Performed By: #### C MP, LIPID #### [facility] [address] [place] [address] Dr. Kristy Hansen Urea nitrogen/Creatinine [Mass ratio] 14.3 mg/mg Normal [facility] Comment on above: Performed By: #### C MP, LIPID #### [facility] [address] [place] [address] Dr. Kristy Hansen Urine Cultureon 07-28-2021 Bacteria identified Cx Nom (U) Reason for Exam Dysuria Urine <9,000 colonies/ml mixed bacterial skin contaminants 2 Days PERFORMED BY: [place] [address] PATHOLOGIST REHEATER ZAHIRA ENGLISH M.D. Normal [facility] Comment on above: Performed By: #### C UU #### [address] Auth for Release of Medical Recordson 12-12-2019 Auth for Release of Medical Records [id number]# 1.00CD:127 [facility] Urology Office/Clinic Noteon 12-04-2019 Urology Office/Clinic Note Chief Complaint 1 week follow up HPI Staff SP TURBT 11/12/19 1 week follow up w/ UA and PVR 0mL . pt having difficulty cathing and soreness. was able to cath sunday but it was very painful and she got out 200cc and hasn't tried since because of the pain. possible ne lubricated cathing supplies. Dysuria: _no pain/burning but only soreness Incomplete bladder emptying: _not all the time she does not feel she is empty Hematuria: _pt denies, trace- intact per UA Frequency: _lately yes Urgency: _no urgency Nocturia: _yes 1-2 times a night Stream: _not strong stream as it once was in august, start/stop hesitation starting this past weekend was the worst Leaking: _no leaking Post void dripping: _no dribbling Wearing pads/ Depends: _no protection Urge incontinence: _no Stress incontinence: _no Incontinence without Sensory Awareness: _no Abdominal pain: _when she presses on stomach near bladder she feels pressure Flank pain: _no back pain Sexual complaints: _ no History of Present Illness reviewed UA. Reviewed PVR. Reviewed op note. Review of Systems PHQ Score Initial Depression Screen Score: 0 ROS - Provider Constitutional: denies weight loss, denies hot flashes. Eyes: denies eye problems. Gastrointestinal: denies nausea, denies vomiting. Cardiovascular: denies chest pain or angina. Integumentary: no dryness Musculoskeletal: denies musculoskeletal symptoms. ENMT: denies otolaryngeal symptoms. Respiratory: no shortness of breath. Heme/Lymph: denies easy bleeding tendency, denies easy bruising tendency. Psychiatric: no confusion, no anxiety. Genitourinary: denies vaginal discharge, denies incontinence, denies dysuria, denies hematuria, denies urinary frequency, denies amenorrhea, denies menorrhagia, denies abnormal bleeding, denies pelvic pain, denies genital sores, and denies decreased libido. Physical Exam Vitals & Measurements HR: 16(Peripheral) BP: 134/83 HT: 162.0 cm HT: 162.0 cm WT: 62.0 kg WT: 62.0 kg BMI: 23.62 General Appearance: alert, no distress, well nourished, well developed male. Flank Pain: none. Bladder: nonpalpable. Assessment/Plan 1. Chronic cystitis (N30.20: Other chronic cystitis without hematuria) PVR today 194ml. UA today is negative for any infection. 2. Lesion of bladder (N32.9: Bladder disorder, unspecified) S/P TURBT done 11/12/19 and was Negative. 3. Asymptomatic microscopic hematuria (R31.21: Asymptomatic microscopic hematuria) UA shows TRACE in sample today, due to TURBT? 4. History of urinary retention (Z87.898: Personal history of other specified conditions) Pt is CIC. Pt states she was unable to CIC, and this past Sunday was the last time. Pt was given some catheters and will return in 1 year. I have reviewed the previous health record information and history for this patient from Dr. Caceres This was a quick visit. I cold not explain this patient's intermittent inability to void. Her lack of ability to void after UDS was repeated over night the other night. I tried to reassure patient but felt she needed catheters to be able to reliev herself at times. I feel her prior Reed Maker's plan of intermittent self cath every 1 to 2 weeks to assure she is not over filling may comfort her, relieve a complete inability to void at times, and provide comfort. I completed our companies catheter order forms for her and indicating that self lubricated catheters are typically not given unless patient's have repeated UTI's due to cathing thus necessitating the no touch catheter. Follow-up With When Contact Information Morris LOTT, Dimas Bowers In 1 [address] [place] [address]- [phone] Additional Instructions: Patient Education Hematuria, Adult I, Lisha Quintanilla, personally scribed for Dr. Caceres on 12/03/2019 10:17:06. . Documentation recorded by the scribe, Lisha Quintanilla, accurately reflects the services(s) I performed and decisions made by me. Authenticated by Dr. Caceres on 12/04/2019 17:04:58. Problem List/Past Medical History Ongoing Asymptomatic bacteriuria Asymptomatic microscopic hematuria Chronic cystitis Former smoker History of urinary retention Incomplete bladder emptying Lesion of bladder Nocturia Recurrent UTI Renal atrophy Renal mass Smoker Urgency of urination Urinary frequency Urinary hesitancy Urinary retention Historical No qualifying data Procedure/Surgical History Cystoscopy and bladder biopsy (11/12/2019), Cystoscopy (08/26/2019), Radical abdominal hysterectomy (06/06/1995), Cataract, Colonoscopy. Medications atorvastatin 10 mg Tab, Oral, Daily butalbital, As Directed CoQ10, Oral, Daily magnesium amino acids chelate, Oral [place]-3 predniSONE, Oral, Daily Vitamin D3 Allergies Diprivan (Aspiration) Flexeril (Unknown) Social History Alcohol Current, 1-2 times per month, 08/13/2019 Tobacco F (more content not included)... [facility] Comment on above: Result Comment: Elec tronically Signed By: Morris LOTT, Dimas Bowers\.br\Date and Time Signed: 12/04/19 17:07 EDT\.br\Electronically Co-Signed By: Lisha Quintanilla MA\.br\Date and Time Co-Signed: 12/03/19 10:17 EDT Ambulatory Clinical Summaryo n 12-03-2019 Ambulatory Clinical Summary {[id number]}CD:[id number] [facility] Patient Educationon 12-03-19 20 Patient Education Family Medicine Hematuria, Adult Hematuria (blood in your urine) can be caused by a bladder infection (cystitis ), kidney infection (pyelonephritis ), prostate infection (prostatitis ), or kidney stone. Infections will usually respond to antibiotics (medications which kill germs), and a kidney stone will usually pass through your urine without further treatment. If you were put on antibiotics, take all the medicine until gone. You may feel better in a few days, but take all of your medicine or the infection may not respond and become more difficult to treat. If antibiotics were not given, an infection did not cause the blood in the urine. A further work up to find out the reason may be needed. HOME CARE INSTRUCTIONS ? Drink lots of fluid, 3 to 4 quarts a day. If you have been diagnosed with an infection, cranberry juice is especially recommended, in addition to large amounts of water. ? Avoid caffeine, tea, and carbonated beverages, because they tend to irritate the bladder. ? Avoid alcohol as it may irritate the prostate. ? Only take xrbr-rdw-[id number] or prescription medicines for pain, discomfort, or fever as directed by your caregiver. ? If you have been diagnosed with a kidney stone follow your caregivers instructions regarding straining your urine to catch the stone. TO PREVENT FURTHER INFECTIONS: ? Empty the bladder often. Avoid holding urine for long periods of time. ? After a bowel movement, women should cleanse front to back. Use each tissue only once. ? Empty the bladder before and after sexual intercourse if you are a female. ? Return to your caregiver if you develop back pain, fever, nausea (feeling sick to your stomach), vomiting, or your symptoms (problems) are not better in 3 days. Return sooner if you are getting worse. If you have been requested to return for further testing make sure to keep your appointments. If an infection is not the cause of blood in your urine, X-rays may be required. Your caregiver will discuss this with you. SEEK IMMEDIATE MEDICAL CARE IF: ? You have a persistent fever over 102? F (38.9? C). ? You develop severe vomiting and are unable to keep the medication down. ? You develop severe back or abdominal pain despite taking your medications. ? You begin passing a large amount of blood or clots in your urine. ? You feel extremely weak or faint, or pass out. MAKE SURE YOU: ? Understand these instructions. ? Will watch your condition. ? Will get help right away if you are not doing well or get worse. Document Released: 01/22/2006 Document Revised: 04/15/2012 Document Reviewed: 09/10/2008 ExitCare? Patient Information ?2013 [employer]. [facility] Ambulatory Clinical Summaryo n 11-27-2019 Ambulatory Clinical Summary {[id number]}CD:[id number] [facility] Ambulatory Clinical Summary {[id number]}CD:[id number] [facility] Patient Educationon 11-27-19 Patient Education Acute Urinary Retention, Female You have been seen by a caregiver today because of your inability to urinate (pass your water). This is an uncommon problem in females. CAUSES It can be caused by: ? Infection. ? A side effect of a medication. ? A problem in a nearby organ that presses or squeezes on the bladder or the urethra (the tube that drains the bladder). ? Psychological problems. TREATMENT Treatment may involve a one-time placement of a tube in the bladder to empty it. It may be a problem that does not recur for years. You and your caregiver can decide how to handle this problem in follow-up. You may need to be referred to a specialist for additional examination and tests. HOME CARE INSTRUCTIONS If you are to leave the vasquez catheter (a long, narrow, hollow tube) in and go home with a drainage system, you will need to discuss the best course of action with your caregiver. While the catheter is in, maintain a good intake of fluids. Keep the drainage bag emptied and lower than your catheter. This is so contaminated (infected) urine will not flow back into your bladder. This could lead to a urinary tract infection. Only take jrkw-nxh-wjaegdr or prescription medicines for pain, discomfort, or fever as directed by your caregiver. SEEK IMMEDIATE MEDICAL CARE IF: You develop chills, fever, or show signs of generalized illness that occurs prior to seeing your caregiver. Document Released: 01/21/2007 Document Revised: 04/15/2012 Document Reviewed: 12/24/2009 ExitCare? Patient Information ?2013 [employer]. Normal [facility] Urology Office/Clinic Noteon 11-27-2019 Urology Office/Clinic Note Chief Complaint follow up to bladder bx HPI Staff 2 week follow up to bladder bx 11/12/2019 Dysuria: no Incomplete bladder emptying: no Hematuria: no Frequency depends on fluid intake Urgency: pt. states if she waits to long she will get the urge Nocturia: 2-3x a night Stream: pt. states at night she has a delay in her stream Leaking: no Post void dripping: no Wearing pads/ Depends: no Urge incontinence: no Stress incontinence: no Incontinence without Sensory Awareness: no Abdominal pain: no Flank pain: no Sexual complaints: no History of Present Illness Tests Reviewed: Reviewed UA, Reviewed OP report, Reviewed Path report, Reviewed PVR 432 mL I have reviewed the previous health record information and history for this patient from Dr. Caceres There have been no associated fever, chills, flank pain, or blood in the urine. Denies any urinary infections since last encounter. Review of Systems General: Fevers Denies , Weight Loss Denies , Weakness denies Hot Flashes Denies Skin: Rash Denies , Non-healed Skin Wound Denies Blood: Bruising Denies , Bleeding Denies , Anemia Denies Eyes: Eye Problems Denies Ears: Recent Hearing problems Denies Respiratory: Cough Denies , Coughing Blood Denies , Shortness of Breath Denies , Respiratory Infections Denies , Loud Snoring Denies Cardiovascular: Chest Pain Denies , Sensation of Irregular Heart Beat Denies Swelling in the legs Denies Pain in the legs with walking Denies Intestinal: Constipation Denies , Diarrhea Denies , Rectal Bleeding/Blood in Stool Denies , Hemorrhoids Denies , Indigestion Denies Nausea Denies , Vomiting Denies Genito-Urinary: Have you ever seen blood in your urine Denies , Have you ever been told there was blood in your urine Denies Vaginal Discharge Denies , Vaginal Bleeding Denies , Leaking urine(incontinence) Denies , Flank or Kidney pain Denies , Pain relating to your bladder filling or emptying Denies Burning with urination Denies Urinary tract infection Denies Kidney stone Denies Sexual difficulties Denies Muscle-skeletal: Joint pain Denies Back pain Denies Muscle Cramps Denies Nervous System: Headaches Denies Seizures Denies Blackouts Denies Numbness Denies Weakness in a certain area of your body Denies Tingling in a certain area of your body Denies Psychological: Confusion Denies , Anxiety Denies Other Free text: Physical Exam Vitals & Measurements HR: 106(Peripheral) RR: 16 BP: 132/82 HT: 162.0 cm HT: 162 cm WT: 62.0 kg WT: 62 kg BMI: 23.62 General Appearance: alert , no acute distress, well nourished, well developed female. Head: normocephalic . Eyes: normal orbit and globe. ENMT: normal examination of external ears. Chest: Lungs CTA, respirations non labored . Cardiovascular: regular rate and rhythm. Abdomen: soft, non distended, no tenderness, no mass or organomegaly, no hernia. Genitourinary: bladder nonpalpable, no flank tenderness. Lymph Nodes: unremarkable palpation of the cervical area. Skin: warm, dry, no bruising. Psychiatric: cooperative, affect appropriate for age, normal judgement, euthymic mood. Assessment/Plan 1. Recurrent UTI (N39.0: Urinary tract infection, site not specified) 2. Lesion of bladder (N32.9: Bladder disorder, unspecified) S/p Cysto, B/L retrogrades, bladder bx w/ fulguration done 11/12/2019. The pathology report was reviewed with the patient in detail today. There is no evidence of malignancy and no further evaluation of the tissue removed is planned. All questions were answered and the report discussed in terms that the patient could understand. Focal thick bladder wall. 3. Chronic cystitis (N30.20: Other chronic cystitis without hematuria) per pathology 4. Nocturia (R35.1: Nocturia) Mild intermittent 2-3x a night 5. Urinary frequency (R35.0: Frequency of micturition) mild intermittent, varies on fluid intake 6. Urgency of urination (R39.15: Urgency of urination) Mild intermittent if she waits to long 7. History of urinary retention (Z87.898: Personal history of other specified conditions) PVR 432 mL pt voided again and another PVR was done results were 228 mL Patient to start timed voids q2-3h during waking hours whether the urge to void is present or not. Discussed with pt double voiding to help lessen the amount of urine in her bladder, pt okay to CIC if unable to void. Discussed getting a renal US once a year to ensure urine isn't backing up into the kidneys. Pt is in agreement with this plan. 8. Urinary hesitancy (R39.11: Hesitancy of micturition) Intermittent at night Former smoker (Z87.891: Personal history of nicotine dependence) 64 YO female with a history of infrequent CIC for retention in the clinical setting a very thick bladder dome s/p biopsy with inability to void per a brief review of a UDS assessment that I felt was different that I recalled from the day of, but did confirm with the patient that she could not void after (more content not included)... Normal [facility] Comment on above: Result Comment: Elec tronically Signed By: Morris LOTT, Dimas Bowers\.br\Date and Time Signed: 11/27/19 15:53 EDT\.br\Electronically Co-Signed By: Zari Campos MA\.br\Date and Time Co-Signed: 11/27/19 14:46 EDT Vital Signs Date Time Vital Sign Value Performing Clinician Facility 12-04-2022 11:10-0400 Body height 162.56 cm Ricky Dong Other [facility] Other 12-04-2022 11:10-0400 Body mass index (BMI) [Ratio] 21.97 kg/m2 Ricky Dong Other [facility] Other 12-04-2022 11:10-0400 Body temperature 98.3 [degF] Ricky Dong Other [facility] Other 12-04-2022 11:10-0400 Body weight 58.06 kg Ricky Dong Other [facility] Other 12-04-2022 11:10-0400 Diastolic blood pressure 76 mm[Hg] Ricky Dong Other [facility] Other 12-04-2022 11:10-0400 Respiratory rate 18 /min Ricky Dong Other [facility] Other 12-04-2022 11:10-0400 SaO2% (BldA) [Mass fraction] 99 % Ricky Dong Other [facility] Other 12-04-2022 11:10-0400 Systolic blood pressure 122 mm[Hg] Ricky Dong Other [facility] Other 05-12-2022 12:10-0400 Body height 162.56 cm Ricky Dong Other [facility] Other 05-12-2022 12:10-0400 Body mass index (BMI) [Ratio] 22.14 kg/m2 Ricky Dong Other [facility] Other 05-12-2022 12:10-0400 Body temperature 98.2 [degF] Ricky Dong Other [facility] Other 05-12-2022 12:10-0400 Body weight 58.51 kg Ricky Dong Other [facility] Other 05-12-2022 12:10-0400 Diastolic blood pressure 74 mm[Hg] Ricky Dong Other [facility] Other 05-12-2022 12:10-0400 Respiratory rate 18 /min Ricky Dong Other [facility] Other 05-12-2022 12:10-0400 SaO2% (BldA) [Mass fraction] 99 % Ricky Dong Other [facility] Other 05-12-2022 12:10-0400 Systolic blood pressure 118 mm[Hg] Ricky Dong Other [facility] Other 08-02-2021 12:00-0400 Body height 162.56 cm Ricky Newton Other [facility] Other 08-02-2021 12:00-0400 Body mass index (BMI) [Ratio] 22.14 kg/m2 Ricky Newton Other [facility] Other 08-02-2021 12:00-0400 Body temperature 98.4 [degF] Ricky Newton Other [facility] Other 08-02-2021 12:00-0400 Body weight 58.51 kg Ricky Newton Other [facility] Other 08-02-2021 12:00-0400 Diastolic blood pressure 65 mm[Hg] Ricky Newton Other [facility] Other 08-02-2021 12:00-0400 SaO2% (BldA) [Mass fraction] 100 % Ricky Newton Other [facility] Other 08-02-2021 12:00-0400 Systolic blood pressure 114 mm[Hg] Ricky Newton Other [facility] Other 07-07-2021 15:30-0400 Body height 162.56 cm Ricky Newton Other [facility] Other 07-07-2021 15:30-0400 Body mass index (BMI) [Ratio] 23 kg/m2 Ricky Newton Other [facility] Other 07-07-2021 15:30-0400 Body temperature 96.8 [degF] Ricky Newton Other [facility] Other 07-07-2021 15:30-0400 Body weight 60.78 kg Ricky Newton Other [facility] Other 07-07-2021 15:30-0400 Diastolic blood pressure 70 mm[Hg] Ricky Newton Other [facility] Other 07-07-2021 15:30-0400 SaO2% (BldA) [Mass fraction] 100 % Ricky Newton Other [facility] Other 07-07-2021 15:30-0400 Systolic blood pressure 132 mm[Hg] Ricky Newton Other [facility] Other 05-18-2021 11:30-0400 Body height 162.56 cm Ricky Dong Other [facility] Other 05-18-2021 11:30-0400 Body mass index (BMI) [Ratio] 24.03 kg/m2 Ricky Dong Other [facility] Other 05-18-2021 11:30-0400 Body temperature 97.7 [degF] Ricky Dong Other [facility] Other 05-18-2021 11:30-0400 Body weight 63.5 kg Ricky Dong Other [facility] Other 05-18-2021 11:30-0400 Diastolic blood pressure 76 mm[Hg] Ricky Dong Other [facility] Other 05-18-2021 11:30-0400 Respiratory rate 16 /min Ricky Dong Other [facility] Other 05-18-2021 11:30-0400 SaO2% (BldA) [Mass fraction] 97 % Ricky Dong Other [facility] Other 05-18-2021 11:30-0400 Systolic blood pressure 116 mm[Hg] Ricky Dong Other [facility] Other 11-16-2020 11:30-0400 Body height 162.56 cm Ricky Dong Other [facility] Other 11-16-2020 11:30-0400 Body mass index (BMI) [Ratio] 22.83 kg/m2 Ricky Dong Other [facility] Other 11-16-2020 11:30-0400 Body weight 60.33 kg Ricky Dong Other [facility] Other 11-16-2020 11:30-0400 Diastolic blood pressure 78 mm[Hg] Ricky Dong Other [facility] Other 11-16-2020 11:30-0400 Respiratory rate 18 /min Ricky Dong Other [facility] Other 11-16-2020 11:30-0400 SaO2% (BldA) [Mass fraction] 99 % Ricky Dong Other [facility] Other 11-16-2020 11:30-0400 Systolic blood pressure 130 mm[Hg] Ricky Dong Other [facility] Other Encounters Encounter Date Encounter Type Care Provider Facility Start: 12-12-2022 End: 12-13-2022 ambulatory CRYSTAL CONTRERAS Not Available Start: 12-08-2022 End: 12-08-2022 ambulatory Ricky Dong Other [facility] Other Start: 12-08-2022 Telephone encounter Ricky Dong [facility] Start: 12-04-2022 End: 12-04-2022 ambulatory Ricky Dong Other [facility] Other Start: 12-04-2022 Office outpatient vi sit 25 minutes Ricky Dong [facility] Start: 12-04-2022 Telephone encounter Ricky Dong [facility] Start: 09-07-2022 End: 09-07-2022 ambulatory Ricky Dong Other [facility] Other Start: 09-07-2022 Telephone encounter Ricky Dong [facility] [place] Start: 08-29-2022 End: 08-29-2022 ambulatory Ricky Dong Other [facility] Other Start: 08-29-2022 Telephone encounter Rikcy Dong [facility] Start: 05-25-2022 End: 05-26-[address] RICKY DONG Facility: Start: 05-16-2022 End: 05-16-2022 ambulatory Ricky Dong Other [facility] Other Start: 05-16-2022 Telephone encounter Ricky Dong [facility] Start: 05-12-2022 End: 05-12-2022 ambulatory Ricky Dong Other [facility] Other Start: 05-12-2022 Office outpatient vi sit 15 minutes Ricky Dong [facility] Start: 05-12-2022 Telephone encounter Ricky Dong [facility] [place] Start: 04-18-2022 End: 04-18-2022 ambulatory Ricky Dong Other [facility] Other Start: 04-18-2022 Telephone encounter Ricky Dong [facility] [place] Start: 02-07-2022 End: 02-07-2022 ambulatory Ricky Dong Other [facility] Other Start: 02-07-2022 Telephone encounter Ricky Dong [facility] [place] Start: 11-17-2021 End: 11-18-[address] RICKY DONG Facility:[facility] Start: 08-02-2021 End: 08-02-2021 ambulatory Ricky Newton Other [facility] Other Start: 08-02-2021 Office outpatient vi sit 25 minutes Ricky Aman [facility] Start: 07-07-2021 End: 07-07-2021 ambulatory Ricky Newton Other [facility] Other Start: 07-07-2021 Office outpatient ne w 45 minutes Ricky Newton [facility] Start: 05-23-2021 End: 05-23-2021 ambulatory Ricky Dong Other [facility] Other Start: 05-23-2021 Telephone encounter Ricky Dong [facility] [place] Start: 05-18-2021 End: 05-18-2021 ambulatory Ricky Dong Other [facility] Other Start: 05-18-2021 Office outpatient vi sit 25 minutes Ricky Dong [facility] [place] Start: 02-16-2021 End: 02-16-2021 ambulatory Ricky Dong Other [facility] Other Start: 02-16-2021 Telephone encounter Ricky Dong [facility] [place] Start: 11-16-2020 Office outpatient vi sit 25 minutes Ricky Dong [facility] [place] Start: 11-16-2020 Telephone encounter Ricky Dong [facility] [place] Immunizations Immunization Date Immunization Notes Care Provider Fa cili 05-18-2021 Shingrix 50 MCG/0.5M L; Translations: [Shingrix 50 MCG/0.5ML] Ricky Dong Other [facility] Other 04-07-2020 COVID-19 Vaccine Pfi zer - Documentation Purposes Only Ricky Dong Other [facility] Other 03-16-2020 COVID-19 Vaccine Pfi zer - Documentation Purposes Only Ricky Dong Other [facility] Other 10-09-2013 Toradol per 15 mg Ricky Talley in Other [facility] Other Payers Date Payer Category Payer Medicare [id number] 2.1 [id number] 1961 Unknown [id number] 1955 Unknown [id number] 1955 Unknown [id number] 1955 Unknown [id number] Social History Date Type Detail Facility Unknown if ever smoked [facility] Other Sex Assigned At Sex Assigned At Bir th [facility] Other Clinical Notes 11-16-2020 to 12-11-2022 Note Date & Type Note Facility 12-11-2022 History general N arrative - Reported Type Medical History Hysterectomy 1995; Barbara Casarez due to cervical cancer, it was all contained with hysterectomy, no longer follows with Dr. Casarez Medical History Mammogram; [facility] Medical History No history of Stress Test, CT Scan Abdomen or Pelvis Medical History History of Chicken Pox as a Chil d Medical History Colonoscopy 03-04-12; Dr. Ayana fonseca Medical History Flu Vaccine and 2015 Medical History Hyperlipidemia Medical History Dermalgraphia Medical History migraines Surgical History Total Hysterectomy; Dr. Casarez- due to cervical cancer 1995 Surgical History Colonoscopy, Dr. Nicolas / No rmal 03-04-12 Hospitalization History see above surgical histo ry 1995 [facility] Other 11-03-2023 History general Narrative - Reported* Type Description Date Medical History Hysterectomy 1995; Barbara Casarez due to cervical cancer, it was all contained with hysterectomy, no longer follows with Dr. Casarez Medical History Mammogram; , [facility] Medical History No history of Stress Test, CT Sc an Abdomen or Pelvis Medical History History of Chicken Pox as a Chil d Medical History Colonoscopy 03-04-12; Dr. Ayana fonseca Medical History Flu Vaccine and 2015 Medical History Hyperlipidemia Medical History Dermalgraphia Medical History migraines Surgical History Total Hysterectomy; Dr. Casarez- due to cervical cancer 1995 Surgical History Colonoscopy, Dr. Nicolas / No rmal 03-04-12 Hospitalization History see above surgical histo ry 1995 [facility] Other 11-03-2023 Evaluation note* Encounter Date Diagnosis Assessment Notes Treatment Notes Treatment Clinical Notes Dec, Migraine (ICD-10 - G43.909) [facility] Other 10-30-2023 Evaluation note* Encounter Date Diagnosis Assessment Notes Treatment Notes Treatment Clinical Notes Nov, Hyperlipidemia (ICD-10 - E78.5) Discussed cholesterol results with patient today. Total is 171. HDL is 57. LDL is 98. Triglycerides are 80. VLDL is 16. She is taking the Lipitor every other day and voices that sometimes she forgets to take it every other day. I did recommend that she continue to take it every other day. She does take the Co-Q-10 along with this. She eats a very healthy diet and avoids sugars and should continue with this. Nov, Hyperglycemia (ICD-10 - R73.9) Discussed her blood sugar readings today. Her glucose is 91. HgA1C is 5.1 which is normal. Continue to monitor diet and stay active. She is to continue with her healthy lifestyle. Nov, Leg pain (ICD-10 - M79.606) She has shooting pain between her left groin and left thigh for years that comes and goes. This pain occurs mostly when sitting she thinks. She had a hysterectomy in 1995 due to cervical cancer and is not sure if this is causing the pain or not. It will feel like pins and needles and only last a couple of seconds and then be gone. She describes it as a muscle spasm although it is likely nerve related. She has had this for at least 10 years and maybe only once a month but recently it has been happening more often. I did advise her that this could be coming from her back but the pain does not wrap arond her leg. If this continues to occur more often then she should have an xray done of her low back. Nov, Insomnia (ICD-10 - G47.00) She has tried Melatonin which has helped her to get to sleep but then she wakes up. She has tried to stay away from her phone, TV a couple of hours before bed. She has avoided eating after 7. She keeps her room cool. She does not use a fan because it will cause her to be stuffed up. She has a fan she can use on the floor for white noise but used this in the summer and states that some nights she sleeps better than others. She does not nap. We discussed her using a sleeping medication to help her sleep. She cannot take this medication with anything that can cause drowsiness or alcohol. She would not be able to use this on any night she uses Xanax. Side effects/risks/bene fits of medication were reviewed. OTC sleeping medications can cause dementia. I did explain to her that sleeping medication can cause some people to get up during the night and do things that they may not remember. She lives alone and does not want to take a chance of getting up and doing anything she may not remember. She will try to make her room cooler and see if this helps her to sleep. Recommend she try to keep her room at 64 degrees. She will keep me posted with how she is doing. Nov, Anxiety (ICD-10 - F41.9) She voices that she rarely uses the Xanax. An OARRS report was printed and reviewed, no discrepancies noted. Frequent appointments needed due to addiction potential of medication. Pain inventory sheet completed and reviewed if opiod medication given. Pain contract is on file if pertinent. Patient will have office visits every three months for evaluation or sooner if needed. I discussed addiction potential of medication with the patient. Discussed with the patient and provided a treatment plan including the use of non-opiod analgesics and non-pharmacologica l intervention with patient if treated for pain. We have discussed realistic benefits and known risks of opiod/controlled therapy and the expected benefits for both pain and function. These benefits outweigh the risks. Patient has been counselled on the dangers of combining opiods/controlled prescriptions with alcohol or other sedatives and counseled on the safe storage and disposal of opiods/controlled prescriptions. Do not drive or operate heavy machinery after taking opiod/controlled medication. I have verified that no current substance abuse treatments are being prescribed. Nov, Other senior living (current) drug therapy (ICD-10 - Z79.899) Nov, Nocturia (ICD-10 - R35.1) Nov, Weight gain (ICD-10 - R63.5) Nov, Cold sore (ICD-10 - B00.1) She was provided with a prescription for Famciclovir today. She voices that the medication is expensive so she will see where she can find this that is affordable and have it on hand for when needed. Nov, Migraine (ICD-10 - G43.909) I did provide her with a refill on Fioricet. Nov, Palpitation (ICD-10 - R00.2) Continue with above medication daily as directed. Nov, Other She is followin g with her eye doctor for dry eye, she voices that the pressure in her eyes is up. She will see her eye doctor tomorrow. She is currently using drops in her eyes. She is considering having Botox/fillers done in her face. She is still exploring options and different locations to have this done. [facility] Other 08-03-2023 History general Narrative - Reported* Type Description Date Medical History Hysterectomy 1995; Barbara Casarez due to cervical cancer, it was all contained with hysterectomy, no longer follows with Dr. Casarez Medical History Mammogram; [facility] Medical History No history of Stress Test, CT Sc an Abdomen or Pelvis Medical History History of Chicken Pox as a Chil d Medical History Colonoscopy 03-04-12; Dr. Ayana fonseca Medical History Flu Vaccine and 2015 Medical History Hyperlipidemia Medical History Dermalgraphia Medical History migraines Surgical History Total Hysterectomy; Dr. Casarez- due to cervical cancer 1995 Surgical History Colonoscopy, Dr. Nicolas / No rmal 03-04-12 Hospitalization History see above surgical histo ry 1995 [facility] Other 08-03-2023 Evaluation note* Encounter Date Diagnosis Assessment Notes Treatment Notes Treatment Clinical Notes Sep, Hyperlipidemia (ICD-10 - E78.5) [facility] Other 07-25-2023 Evaluation note* Encounter Date Diagnosis Assessment Notes Treatment Notes Treatment Clinical Notes Aug, Anxiety (ICD-10 - F41.9) She does continue to use and benefit from the Xanax but she rarely takes the medicine. I will provide her with a refill today. I will see her back in three months. Side effects/risks/be nefits of medication were reviewed. An OARRS report was printed and reviewed, no discrepancies noted. Frequent appointments needed due to addiction potential of medication. Pain inventory sheet completed and reviewed if opiod medication given. Pain contract is on file if pertinent. Patient will have office visits every three months for evaluation or sooner if needed. I discussed addiction potential of medication with the patient. Discussed with the patient and provided a treatment plan including the use of non-opiod analgesics and non-pharmacologica l intervention with patient if treated for pain. We have discussed realistic benefits and known risks of opiod/controlled therapy and the expected benefits for both pain and function. These benefits outweigh the risks. Patient has been counselled on the dangers of combining opiods/controlled prescriptions with alcohol or other sedatives and counseled on the safe storage and disposal of opiods/controlled prescriptions. Do not drive or operate heavy machinery after taking opiod/controlled medication. I have verified that no current substance abuse treatments are being prescribed. Aug, Encounter for screening fecal occult blood testing (ICD-10 - Z12.11) I did advise her that her FOBT test was negative. Aug, Hyperlipidemia (ICD-10 - E78.5) She did request a refill of her Lipitor. I will send this to her mail order pharmacy today. She has been eating healthy and is exercising. She does alot of walking. [place] walks in [place] because there is not alot of traffic. She is to continue with what she is doing. She does her own yardwork to stay active. Aug, Other 11:35 AM - 11:4 6 AM [facility] Other 04-11-2023 History general Narrative - Reported* Type Description Date Medical History Hysterectomy 1996; D r. Phibbs due to cervical cancer, it was all contained with hysterectomy, no longer follows with Dr. Casarez Medical History Mammogram; [facility] Medical History No history of Stress Test, CT Sc an Abdomen or Pelvis Medical History History of Chicken Pox as a Chil d Medical History Colonoscopy 03-04-12; Dr. Ayana fonseca Medical History Flu Vaccine 2015 Medical History Hyperlipidemia Medical History Dermalgraphia Medical History migraines Surgical History Total Hysterectomy; Dr. Casarez- due to cervical cancer 1995 Surgical History Colonoscopy, Dr. Nicolas 03-04 Hospitalization History see above surgical histo ry 1995 [facility] Other 04-11-2023 Evaluation note* Encounter Date Diagnosis Assessment Notes Treatment Notes Treatment Clinical Notes May, Eustachian tube dysfunction, right (ICD-10 - H69.81) [facility] Other 04-10-2023 History general Narrative - Reported* Type Description Date Medical History Hysterectomy 1995; D r. Phibbmaritza due to cervical cancer, it was all contained with hysterectomy, no longer follows with Dr. Casarez Medical History Mammogram; [facility] No history of Stress Test, CT Sc an Abdomen or Pelvis Medical History History of Chicken Pox as a Chil d Medical History Colonoscopy 03-04-12; Dr. Ayana fonseca Medical History Flu Vaccine and 2015 Medical History Hyperlipidemia Medical History Dermalgraphia Medical History migraines Surgical History Total Hysterectomy; Dr. Casarez- due to cervical cancer 1995 Surgical History Colonoscopy, Dr. Nicolas 03-04 Hospitalization History see above surgical histo ry 1995 [facility] Other 04-07-2023 History general Narrative - Reported* Type Description Date Medical History Hysterectomy 1996; D r. Phibbs due to cervical cancer, it was all contained with hysterectomy, no longer follows with Dr. Casarez Medical History Mammogram; [facility] Medical History No history of Stress Test, CT Sc an Abdomen or Pelvis Medical History History of Chicken Pox as a Chil d Medical History Colonoscopy 03-04-12; Dr. Ayana fonseca Medical History Flu Vaccine and 2015 Medical History Hyperlipidemia Medical History Dermalgraphia Medical History migraines Surgical History Total Hysterectomy; Dr. Casarez- due to cervical cancer 1995 Surgical History Colonoscopy, Dr. Nicolas 03-04 Hospitalization History see above surgical histo ry 1995 [facility] Other 04-07-2023 Evaluation note* Encounter Date Diagnosis Assessment Notes Treatment Notes Treatment Clinical Notes May, Eustachian tube dysfunction, right (ICD-10 - H69.81) On exam, she is told that her ear does not have any impacted cerumen. Her ear drum in general appears normal, but there is one portion that is injected and appears angry she may be trying to get an ear infection or this could be eustachian tube dysfunction. She cannot use steroid nasal spray because it increases her eye pressure, so I did recommend that she use plain saline nasal spray and use this every two hours during the day while awake. She should also buy a bag of balloons and begin blowing up a balloon three times a day to help pop open the eustachian tube. May, Otitis media (ICD-10 - H66.90) right Incase her right ear is trying to become infected I would like her to take above medication. Guidance is given on how to take the medication. Eat yogurt daily while on ATB to prevent GI upset. Push fluids. All questions she has were answered. She has Augmentin on hand but I do not feel she needs this strong of an antibiotic so I will prescribe Amoxicillin instead. May, Other She voices that her ear itches and she does use q-tips sometimes. I did recommend she avoid using q-tips and the itching should resolve. [facility] Other 03-14-2023 Evaluation note* Encounter Date Diagnosis Assessment Notes Treatment Notes Treatment Clinical Notes Apr, Other specified health status (ICD-10 - Z78.9) [facility] Other 01-03-2023 Evaluation note* Encounter Date Diagnosis Assessment Notes Treatment Notes Treatment Clinical Notes Feb, Hyperlipidemia (ICD-10 - E78.5) [facility] Other 06-28-2022 History general Narrative - Reported* Type Description Date Medical History Hysterectomy 1995; Barbara Casarez due to cervical cancer, it was all contained with hysterectomy, no longer follows with Dr. Casarez Medical History Mammogram; [facility] Medical History No history of Stress Test, CT Sc an Abdomen or Pelvis Medical History History of Chicken Pox as a Chil d Medical History Colonoscopy 03-04-12; Dr. Ayana fonseca Medical History Flu Vaccine and 2015 Medical History Hyperlipidemia Medical History Dermalgraphia Medical History migraines Surgical History Total Hysterectomy; Dr. Casarez- due to cervical cancer 1995 Surgical History Colonoscopy, Dr. Nicolas 03-04 Hospitalization History see above surgical histo ry 1995 [facility] Other 06-28-2022 Evaluation note* Encounter Date Diagnosis Assessment Notes Treatment Notes Treatment Clinical Notes Jul, Snoring (ICD-10 - R06.83) Her home sleep test did show 33 respiratory events, which gave a respiratory disturbance index of only 3.5. While home sleep testing can underestimate apnea severity with her weight loss and improved symptoms I do not feel we need to proceed to PSG Jul, Fatigue, unspecified type (ICD-10 - R53.83) She reports her fatigue is substantially better, and credits her improved diet and exercise patterns. Her body weight has not come down with these. It is possible she had mild sleep apnea which she has treated by bringing weight down, or other process may have been present. Labs ordered by Dr. Dong earlier this year were okay. I discussed her home sleep test, including limitations of HST and possibility of false negative result. However given her overall clinical situation and the fact that her weight reduction would be treatment for mild sleep apnea we elect to recheck in 4 5 months and to discuss at that time. She will call sooner if any problems Jul, BMI 22.0-22.9, adult (ICD-10 - Z68.22) [facility] Other 06-02-2022 Evaluation note* Encounter Date Diagnosis Assessment Notes Treatment Notes Treatment Clinical Notes Jul, Sleep apnea (ICD-10 - G47.30) I reviewed the diagnosis of sleep apnea and its implications, and she expresses good understanding. We also reviewed treatment options, which in her situation could include positive airway pressure treatment, tonsillectomy, and possibly other interventions. She is not really interested in tonsillectomy, and reports she is relatively comfortable with the idea of CPAP. However she would like to return to review results before making any treatment decisions, and we thus anticipate return after home sleep testing Jul, Excessive daytime sleepiness (ICD-10 - G47.19) She has excessive daytime sleepiness despite adequate to increase total sleep time, and she has loud snoring with observed apneas. The situation is overall suggestive of obstructive sleep apnea. She is familiar with the diagnosis and reports that her son has the disorder, successfully treated with CPAP. She also reports that his body habitus is not overweight. Consequently, despite her relatively low BMI there is reasonable concern that sleep apnea is present. Jul, Enlarged tonsils (ICD-10 - J35.1) She does have enlarged tonsils though they do not appear to be inflamed or infected. Tonsillar enlargement can cause airway narrowing that may significantly contribute to snoring and sleep apnea in some patients Jul, BMI 23.0-23.9, adult (ICD-10 - Z68.23) Given her body habitus it seems relatively unlikely that weight reduction would significantly impact her snoring Jul, Generalized anxiety disorder (ICD-10 - F41.1) She does have anxiety which is currently well controlled using medication. Her current medications are unlikely to substantially affect sleep apnea tendencies Jul, Other The diagnosis o f Sleep Apnea was reviewed in detail, and handout materials were provided. The patient expresses good understanding, We also reviewed the medical and accident risks associated with sleep apnea and excessive fatigue. The patient is advised to adhere to a proper sleep hygiene schedule and to assure adequate total sleep time; The patient was advised to continue efforts at progressive weight loss, including decreased overall caloric intake quantity and better food choices.The patient was advised to call or return any difficulties arise, including changes in symptoms and/or problems with treatment [facility] Other 04-13-2022 Evaluation note* Encounter Date Diagnosis Assessment Notes Treatment Notes Treatment Clinical Notes May, Hyperlipidemia (ICD-10 - E78.5) She voices that she started to get heartburn so she did some research and found that she should not be taking Lipitor and her heartburn medicine at the same time. She then found she was not really taking the Lipitor as directed. Discussed cholesterol results with patient today. Total is 193. HDL is 53. LDL is 116.8. Triglycerides are 116. I would like to see her LDL between 70-100. She is encouraged to return to taking the Lipitor daily. She voices that she will return to taking the medication. May, Hyperglycemia (ICD-1 0 - R73.9) Discussed blood sugar results with her today. Glucose is 105. HgA1C is 5.0 which is down from 5.8. She voices that she is eating alot of salads and healthier options. She is to continue with these dietary changes that she has made because they are working well for her. May, Heartburn (ICD-10 - R12) She voices that she took Omeprazole 20 MG for one month and it does not seem to be working but she had tried Prevacid which worked better. She would like a prescription for this today. I will provide her with a prescription to take with her and she will find a pharmacy that is affordable for her to get the prescription from. If once she has been on the Prevacid for two months she continues to have symptoms or has breakthrough symptoms she is to let me know and we would need to refer her for an EGD. She is to keep me posted with how she is doing. If needed we would refer her to Dr. Miller. May, Tachycardia (ICD-10 - R00.0) Her pulse is 105 in the office today. She has not had any caffeine today. Her heart is regular on exam. We discussed this today, that her body is under stress in some way. She is tired today and it is possible that her sleep issues are worse then we think. Will see what the sleep specialist says. If she finds that her heart is racing or her pulse is 160 then she should go to the ER for evaluation to rule out abnormalities. May, Migraine (ICD-10 - G43.909) Continue with above medication as needed. Side effects/risks/benef its of medication were reviewed. 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 I did explain to her that this could be neurodermatitis. The most common place to get this is on the arms and the back of the neck. She admits it itches and it is worse in the evening. She has tried Benadryl but it makes her sleep most of the day. I suspect her knowing what is wrong will put her mind at rest. She admits it is better now that the cold sores are clearing up. If needed she can try the Children's Benadryl dose and see if this causes less fatigue. May, Fatigue (ICD-10 - R53.83) She admits to being fatigued and we have discussed sleep apnea. At this time she does want to see a sleep specialist to discuss sleep apnea. A referral is provided. May, Weight gain (ICD-10 - R63.5) Her TSH is 1.637 which is normal. May, Cold sore (ICD-10 - B00.1) She is taking above medication for the current outbreak she has below her nose. Today is the last day of medication that she has. She can continue to take the medication if she needs it, she has one refill. She has spots on her arms as well. She wonders if these are chicken pox, she had chicken pox when she was a child. If this was Shingles it would never be on both sides of the body. May, Anxiety (ICD-10 - F41.9) An OAR[place] report was reviewed no discrepancies noted. She does continue to use and benefit from the Xanax as needed. Frequent appointments needed due to addiction potential of medication. I will need to see her back in three months. Side effects/risks/benef its of medication were reviewed. May, Other senior living (current) drug therapy (ICD-10 - Z79.899) May, Elevated CO2 level (ICD-10 - R79.81) I did advise her that her CO2 level is elevated at 30.6. May, Hematuria (ICD-10 - R31.9) She voices that she had two urinary tract infections in Mar (2021) and was treated with two different antibiotics for two infections she had at the same time. She voices that in April (2021) she had her urine repeated and it showed that things had resolved. She now has urinary pressure during the night. She has been following with Dr. Yo who comes to [place] from [place]. Based on her urinalysis done on 05-12-21 it does not show infection, but it had a trace of blood which could be from her bladder being irritated. I did recommend that if things do not feel right she return to see Dr. Yo for evaluation and to discuss the hematuria. May, Other I did recommend that she get the Shingrix vaccine series once her cold sore has cleared up. [facility] Other 01-12-2022 Evaluation note* Encounter Date Diagnosis Assessment Notes Treatment Notes Treatment Clinical Notes Feb, Anxiety (ICD-10 - F41.9) An OAR[place] report was reviewed, no discrepancies noted. She does continue to use and benefit from the Xanax as needed. Frequent appointments needed due to addiction potential of the medication. Side effects/risks/benefi ts of medication were reviewed. She does not need a refill at this time but can call when she needs one. Feb, Acute sinusitis (ICD-10 - J01.90) resolved She voices that her sinus infection seemed to linger for over a month as well as a cough but eventually she was able to get rid of both. Her COVID-19 PCR test on 01-12-21 was negative. She is encouraged to continue to wear her mask when she is out and use good handwashing. Feb, Apnea (ICD-10 - R06.81) She voices that she did not see the sleep specialist because after this was discussed last she never woke up gasping and feels good when she is up for the day and is not fatigued. If she begins to notice this again or is fatigued or feels she needs to go to bed after she gets up then she should let me know and we can refer her to a sleep specialist. She agrees with this plan. Feb, Cold sore (ICD-10 - B00.1) She is currently taking the above medication for a sore she has in her nose, she feels she got this because her immune system was weakened from her recent illness. I will provide her with a refill so she has this on hand. Feb, Other 10:38 AM - 10:46 AM [facility] Other 10-12-2021 Evaluation note* Encounter Date Diagnosis Assessment Notes Treatment Notes Treatment Clinical Notes Nov, Anxiety (ICD-10 - F41.9) [facility] Other 10-12-2021 Evaluation note* Encounter Date Diagnosis Assessment Notes Treatment Notes Treatment Clinical Notes Nov, Hyperlipidemia (ICD-10 - E78.5) Discussed cholesterol results with patient today. Total is 149. HDL is 54. LDL is 76.2. Triglycerides are 94. Readings are at goal. She questions lowering the Lipitor dose but we discussed that the benefits of the medication outweigh the risks. I did recommend she continue with the same dose, she agrees. Nov, Hyperglycemia (ICD-10 - R73.9) Discussed blood sugar results with patient today. Glucose is 98. HgA1C is 5.8 which is at the higher end of normal. She voices that she has been eating better because she has a friend who is borderline diabetic and they eat together often so they choose better options. She should continue with the better choices, watch her intake of carbs and sugars. Stay active. Nov, Snoring (ICD-10 - R06.83) While on vacation her sister heard her snoring and witnessed her gasping for air. She admits to having fatigue. We discussed sleep apnea today. I did recommend she see Dr. Newton for evaluation to discuss further. She is going to think about this and will let me know if she would like a referral. Nov, Apnea (ICD-10 - R06.81) Nov, Cephalgia (ICD-10 - R51) Provided her with a refill on Fiorinal today. Side effects/risks/benef its of medication were reviewed. 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 I did explain to her that we can refill the Xanax but she will have to be seen every three months. She can call for refills in between visits. An OARRS report was reviewed, no discrepancies noted. Nov, Nocturia (ICD-10 - R35.1) Nov, Fatigue (ICD-10 - R53.83) She voices that she is fatigued but is not sure if she is more fatigued then she was in the past when she was working. Some days after getting up she can feel as if she could lay back down. If she wants to watch a movie she can usually make it through the movie unless it was a day she woke up earlier than normal. Nov, Palpitation (ICD-10 - R00.2) Continue with above medication daily as directed. Nov, Cold sore (ICD-10 - B00.1) She would like to have above medications on hand to use if needed. Nov, Encounter for screening mammogram for breast cancer (ICD-10 - Z12.31) Provided her with an order to have a bilateral mammogram done. Nov, Weight gain (ICD-10 - R63.5) Nov, Other She voices that when at her dentist appointment last week her blood pressure was in the 90's over 60's. She brought her machine with her today and her reading was in the 120's over low 90's. In the office her reading was 130/78 which was normal. Will continue to monitor. [facility] Other Evaluation noteNo InformationNort orderTalk Other History general Narrative - Reported* Type Description Date Medical History Hysterectomy 1995; Barbara Casarez due to cervical cancer, it was all contained with hysterectomy, no longer follows with Dr. Casarez Medical History Mammogram; , [facility] Medical History No history of Stress Test, CT Sc an Abdomen or Pelvis Medical History History of Chicken Pox as a Chil d Medical History Colonoscopy 03-04-12; Dr. Ayana fonseca Medical History Flu Vaccine and 2015 Medical History Hyperlipidemia Medical History Dermalgraphia Medical History migraines Surgical History Total Hysterectomy; Dr. Casarez- due to cervical cancer 1995 Surgical History Colonoscopy, Dr. Nicolas 03-04 Hospitalization History see above surgical histo ry 1995 [facility] Other History general Narrative - Reported* Type Description Date Medical History Hysterectomy 1995; D james Casarez due to cervical cancer, it was all contained with hysterectomy, no longer follows with Dr. Casarez Medical History Mammogram; [facility] Medical History No history of Stress Test, CT Sc an Abdomen or Pelvis Medical History History of Chicken Pox as a Chil d Medical History Colonoscopy 03-04-12; Dr. Ayana fonseca Medical History Flu Vaccine and 2015 Medical History Hyperlipidemia Medical History Dermalgraphia Medical History migraines Surgical History Total Hysterectomy; Dr. Casarez- due to cervical cancer 1995 Surgical History Colonoscopy, Dr. Nicolas / No rmal 03-04-12 Hospitalization History see above surgical histo ry 1995 [facility] Other Reason for visit Narrativereview labs/med refill, discuss multiple issues, see treatment plan for further informationNoLucidLogix Technologies Other Reason for visit Narrativereview labs, discuss multiple issues, see treatment plan for further information[facility] Other Summary Purpose Family History No Family History Records FoundNo Family History Records FoundNo Family History Records FoundNo Family History Records Found Advance Directives No Advanced Directives Records FoundNo Advanced Directives Records FoundNo Advanced Directives Records FoundNo Advanced Directives Records Found Reason for Referral Reason appt consult for r t ear being plugged since flying two wks ago Diagnosis 1 Eustachian tube dysf unction, right (H69.81) Referral Organization [facility] Family Libiain e Geraldine Referring Provider First Name Ricky Referring Provider Last Name Letitia Referring Provider Specialty Family Prac destiny Referred Organization [facility] Referred Provider IsaiahhiEmperatriz salas Referred Address ,[place], [place],[address] Referred Provider Specialty Ear, Nose an d Throat Referral Priority Routine General Notes Ramya Ventura 05/16/2022 01:51:40 PM > referral sent p2p with TE message, visit note and insurance cards. pt was provided with the phone number for the office and she will contact them tomorrow regarding an appt Reason appt pt needs cons ult to discuss fatigue, elevated co2 level, possible sleep apnea Diagnosis 1 Fatigue (R53.83) Referral Organization [facility] Referring Provider First Name Ricky Referring Provider Last Name Letitia Referring Provider Specialty Family Prac destiny Referred Organization [facility] Referred Provider Nelson Mukherjee Ref[place] Address [address] [place], [place],[address] Referred Provider Specialty Sleep Medici ne Referral Priority Routine General Notes Ramya Ventura 05/18/2021 02:21:24 PM > [facility] Sleep Lab referral form faxed with visit note, med list and demographics. pt understands she will be contacted to schedule this appt. Additional Source Comments INFORMATION SOURCE (unrecogn ized section and content) DATE CREATED AUTHOR 11/22/2020 [facility] DATE CREATED AUTHOR AUTHOR'S ORGANIZ ATION 08/11/2021 [facility] DATE CREATED AUTHOR AUTHOR'S ORGANIZ ATION 05/30/2022 [facility] DATE CREATED AUTHOR AUTHOR'S ORGANIZ ATION 12/17/2022 [facility] EPIC REASON FOR VISIT (unrecogniz ed section and content) rxreview labsmed refill Xana xNo InformationHR fyiNo Informationrefilllab orderClinical/ear pluggedrt ear pluggedupdate earmed refillRefillsPA [employer] ApprovedClinicalPA FOR RECORDS PERTAINING TO PATIENTS WHO ARE OR HAVE BEEN ENROLLED IN A CHEMICAL DEPENDENCY/SUBSTANCEABUSE PROGRAM, SOME INFORMATION MAY BE OMITTED. This clinical summary was aggregated from multiple sources. Caution should be exercised in using it in the provision of clinical care. This summary normalizes information from multiple sources, and as a consequence, information in this document may materially change the coding, format and clinical context of patient data. In addition, data may be omitted in some cases. CLINICAL DECISIONS SHOULD BE BASED ON THE PRIMARY CLINICAL RECORDS. [employer] provides no warranty or guarantee of the accuracy or completeness of information in this document.
[2023-06-01 04:12] LABS: Estradiol <5.0 pg/mL (0.0-54.7); Progesterone 0.1 ng/mL (.); Testosterone 14 ng/dL (3-67)
== END 2023-05-31 11:05 | disposition home or self-care (01) ==
LOC: LAB 11:05
PROVIDERS: PCP Family Medicine
DX: R53.82 Chronic fatigue, unspecified (principal)
CPT/HCPCS: 36415; 82607; 82670; 84144; 84403

== ENCOUNTER 2023-12-06 10:48 | Outpatient (OUT) | payer MEDICARE, OTHER, SELFPAY ==
--- OUTSIDE RECORDS SUMMARY | 2023-12-06 11:04 | XMS_ITS | CCD ---
Author Organization [facility] Care Team Providers Care Spare Hand Name Role Phone Ricky Dong Unavailable Ricky Newton Unavailable LETITIA, DR GARCÍA Admitting Unavailable LETITIA, DR GARCÍA Attending Unavailable LETITIA, DR GARCÍA Primary Care Unavailable LETITIA, DR GARCÍA Consulting Unavailable LETITIA, DR GARCÍA Admitting Unavailable LETITIA, DR GARCÍA Attending Unavailable LETITIA, DR GARCÍA Primary Care Unavailable LETITIA, DR GARCÍA Consulting Unavailable ANUSHKA PIMENTEL Attending Unavailable RICKY DONG Referring Unavailable RICKY DONG Primary Care Unavailable CRYSTAL CONTRERAS Attending Unavailable ANGELA HORNER Attending Unavailable ANGELA HORNER Referring Unavailable Allergies Allergy Classification Reported Allergen(s) Allergy Type Date of Onset Reaction(s) Facility (19 sources) Propofol; Translations: [PROPOFOL] Drug Allergy 04-03-19 asperated [facility] Repository (18 sources) tiZANidine Drug Allergy headaches [facility] [employer] [facility] Other (18 sources) steroids caused eye pressure to go up Propensity to adverse reactions Unknown [facility] [employer] [facility] Other (1 source) cyclobenzaprine Drug Allergy [facility] Repository (1 source) Phenprocoumon Drug Allergy [facility] Repository (1 source) Propofol Drug Allergy [facility] Repository (1 source) cyclobenzaprine; Translations: [CYCLOBENZAPRINE] Drug Allergy 03-26-19 [facility] Medications Current Medications Medication Drug Class(es) [...] 10 days prn Nov, Active Fiorinal/Codeine #3 [id number] MG (16 sources) Start: 12-08-2022 take 1 capsule by mouth every four hours as needed Fiorinal/Codeine #3 18-780-72-30 MG 1 capsule Orally every 4 hrs prn for 5 days Dec, Active Start: 12-08-2016 take 1 capsule by mo uth every four hours as needed Fiorinal/Codeine #3 90-132-97-30 MG 1 capsule Orally every 4 hrs prn prn Dec, Active Start: 12-08-2016 take 1 capsule by mo uth every four hours as needed Fiorinal/Codeine #3 58-723-56-30 MG 1 capsule Orally every 4 hrs prn for 5 days prn Dec, Active Start: 12-08-2016 take 1 capsule by mo uth every four hours as needed Fiorinal/Codeine #3 18-824-48-30 MG 1 capsule Orally every 4 hrs prn Dec, Active Start: 12-08-2016 take 1 capsule by mo uth every four hours as needed Fiorinal/Codeine #3 82-272-95-30 MG 1 capsule Orally every 4 hrs [...] a day for 30 day(s) May, Not-Taking [place] 3 1000 MG (2 sources) take 1 capsule by mouth once daily [place] 3 1000 MG 1 capsule Orally Once [...] 05-18-2021 Chronic Genitourinary symptoms and ill-defined conditions (4 sources) Nocturia; Translations: [Hematuria, unspecified] Onset: 11-16-2020 Resolved: 05-18-2021 Episodic Headache; including migraine (20 sources) Migraine; Translations: [Migraine, unspecified, not intractable, without status migrainosus] Onset: 05-18-2021 Resolved: 05-18-2021 Chronic Neoplasms of unspecified nature or uncertain behavior (18 sources) Thrombocytosis; 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 Kristy Hansen Basophils/100 WBC (Bld) 0.5 % Normal 0.2-2.0 [facility] Comment on above: Performed By: #### C BC #### [facility] [address] [place] [address] Dr. Kristy Hansen EO # 0.2 103/ul Normal 0.0-0.7 [facility] Comment on above: Performed By: #### C BC #### [facility] [address] [place] [address] Dr. Kristy Hansen Eosinophils/100 WBC (Bld) 4.2 % Normal 0.9-7.0 [facility] Comment on above: Performed By: #### C BC #### [facility] [address] [place] [address] Dr. Kristy Hansen Erythrocyte distribution width (RBC) [Ratio] 12.5 % Normal 11.0-15.0 [facility] Comment on above: Performed By: #### C BC #### [facility] [address] [place] [address] Dr. Kristy Hansen Hematocrit (Bld) [Volume fraction] 43.6 % Normal 36.0-48.0 [facility] Comment on above: Performed By: #### C BC #### [facility] [address] [place] [address] Dr. Kristy Hansen Hemoglobin (Bld) [Mass/Vol] 15.0 g/dL Normal 12.0-16.0 [facility] Comment on above: Performed By: #### C BC #### [facility] [address] [place] [address] Dr. Kristy Hansen IG # 0.01 10e3/ul Normal 0.00-0.03 [facility] Comment on above: Performed By: #### C BC #### [facility] [address] [place] [address] Dr. Kristy Hansen IG % 0.2 % Normal 0.0-0.5 [facility] Comment on above: Performed By: #### C BC #### [facility] [address] [place] [address] Dr. Kristy Hansen LYMPH # 2.0 103/ul Normal 1.2-3.8 [facility] Comment on above: Performed By: #### C BC #### [facility] [address] [place] [address] Dr. Kristy Hansen Lymphocytes/100 WBC (Bld) 36.3 % Normal 20.5-60.0 [facility] Comment on above: Performed By: #### C BC #### [facility] [address] [place] [address] Dr. Kristy Hansen MANUAL DIFF REQ NO Normal [facility] Comment on above: Performed By: #### C BC #### [facility] [address] [place] [address] Dr. Kristy Hansen MCH (RBC) [Entitic mass] 31.7 pg Normal 26.7-34.0 [facility] Comment on above: Performed By: #### C BC #### [facility] [address] [place] [address] Dr. Kristy Hansen MCHC (RBC) [Mass/Vol] 34.4 g/dL Normal 29.9-35.2 [facility] Comment on above: Performed By: #### C BC #### [facility] [address] [place] [address] Dr. Kristy Hansen MCV (RBC) [Entitic vol] 92.2 fL Normal 81.0-99.0 [facility] Comment on above: Performed By: #### C BC #### [facility] [address] [place] [address] Dr. Kristy Hansen MONO # 0.4 103/ul Normal 0.3-0.8 [facility] Comment on above: Performed By: #### C BC #### [facility] [address] [place] [address] Dr. Kristy Hansen Monocytes/100 WBC (Bld) 6.5 % Normal 1.7-12.0 [facility] Comment on above: Performed By: #### C BC #### [facility] [address] [place] [address] Dr. Kristy Hansen NEUT # 2.9 103/ul Normal 1.4-6.5 [facility] Comment on above: Performed By: #### C BC #### [facility] [address] [address] [address] Kristy Hansen Neutrophils/100 WBC (Bld) 52.3 % Normal 43.0-75.0 [facility] Comment on above: Performed By: #### C BC #### [facility] [address] [address] [address] Kristy Hansen Platelet mean volume (Bld) [Entitic vol] 7.9 fL Critically low 9.5-13.5 [facility] Comment on above: Performed By: #### C BC #### [facility] [address] [address] [address] Kristy Hansen PLT 310 103/ul Normal 150-450 [facility] Comment on above: Performed By: #### C BC #### [facility] [address] [place] [address] Dr. Kristy Hansen RBC 4.73 106/ul Normal 4.20-5.40 [facility] Comment on above: Performed By: #### C BC #### [facility] [address] [place] [address] Dr. Kristy Hansen WBC 5.5 103/ul Normal 4.0-11.0 [facility] Comment on above: Performed By: #### C BC #### [facility] [address] [place] [address] Dr. Kristy Hansen GLYCOHEMOGLOBIN A1Con 2022 ADA RECOMMENDATION SEE BELOW Normal [facility] Comment on above: Result Comment: ADA RECOMMENDED LIMIT 4.0 - 6.0 ADA THERAPEUTIC TARGET < 7.0 ACTION SUGGESTED > 7.0 Performed By: #### A 1C #### [facility] [address] [place] [address] Dr. Kristy Hansen Glucose [Mass/Vol] 105 mg/dL Normal [facility] Comment on above: Performed By: #### A 1C #### [facility] [address] [place] [address] Dr. Kristy Hansen HbA1c (Bld) [Mass fraction] 5.3 % Normal 4.5-6.2 [facility] Comment on above: Performed By: #### A 1C #### [facility] [address] [address] [address] Kristy Hansen LIPID PROFILEon 05-25-2022 CHOL-HDL RATIO NORM SEE BELOW Normal [facility] Comment on above: Result Comment: 3.3 - 4.4 LOW RISK 4.4 - 7.1 AVERAGE RISK 7.1 - 11.0 MODERATE RISK >11.0 HIGH RISK Performed By: #### L IPID, CMP, TSH #### [facility] [address] [address] [address] Kristy Hansen Cholesterol [Mass/Vol] 193 mg/dL Normal <=200 [facility] Comment on above: Performed By: #### L IPID, CMP, TSH #### [facility] [address] [address] [address] Kristy Hansen Cholesterol in HDL [Mass/Vol] 75 mg/dL Critically high 40-60 [facility] Comment on above: Performed By: #### L IPID, CMP, TSH #### [facility] [address] [address] [address] Kristy Hansen Cholesterol in LDL [Mass/Vol] 107.2 mg/dL Normal [facility] Comment on above: Performed By: #### L IPID, CMP, TSH #### [facility] [address] [address] [address] Kristy Hansen Cholesterol.total/Cho lesterol in HDL [Mass ratio] 2.6 {ratio} Normal [facility] Comment on above: Performed By: #### L IPID, CMP, TSH #### [facility] [address] [address] [address] Kristy Hansen HDL NORMAL > or = 60 mg/dl - LOW CARDIOVASCULAR RISK <40 mg/dl - HIGH CARDIOVASCULAR RISK Normal [facility] Comment on above: Performed By: #### L IPID, CMP, TSH #### [facility] [address] [address] [address] Kristy Hansen LDL CALC NORMAL SEE BELOW Normal [facility] Comment on above: Result Comment: <100 mg/dl OPTIMAL 100 - 129 mg/dl NEAR OR ABOVE OPTIMAL 130 - 159 mg/dl BORDERLINE HIGH 160 - 189 mg/dl HIGH >190 mg/dl VERY HIGH Performed By: #### L IPID, CMP, TSH #### [facility] [address] [address] [address] Kristy Hansen Triglyceride [Mass/Vol] 54 mg/dL Normal <=150 [facility] Comment on above: Performed By: #### L IPID, CMP, TSH #### [facility] [address] [address] [address] Kristy Hansen VLDL CALC 10.8 mg/dL Normal [facility] Comment on above: Performed By: #### L IPID, CMP, TSH #### [facility] [address] [address] [address] Kristy Hansen PROF 14(COMP METB)on 023 Albumin [Mass/Vol] 3.7 g/dL Normal 3.4-5.0 [facility] Comment on above: Performed By: #### L IPID, CMP, TSH #### [facility] [address] [place] [address] Dr. Kristy Hansen Albumin/Globulin [Mass ratio] 0.9 {ratio} Normal [facility] Comment on above: Performed By: #### L IPID, CMP, TSH #### [facility] [address] [place] [address] Dr. Kristy Hansen ALP [Catalytic activity/Vol] 82 U/L Normal 46-116 [facility] Comment on above: Performed By: #### L IPID, CMP, TSH #### [facility] [address] [place] [address] Dr. Kristy Hansen ALT [Catalytic activity/Vol] 41 U/L Normal 14-59 [facility] Comment on above: Performed By: #### L IPID, CMP, TSH #### [facility] [address] [place] [address] Dr. Kristy Hansen Anion gap [Moles/Vol] 12.2 mmol/L Normal [facility] Comment on above: Performed By: #### L IPID, CMP, TSH #### [facility] [address] [address] [address] Kristy Hansen AST [Catalytic activity/Vol] 23 U/L Normal 15-37 [facility] Comment on above: Performed By: #### L IPID, CMP, TSH #### [facility] [address] [address] [address] Kristy Hansen Bilirubin [Mass/Vol] 0.4 mg/dL Normal 0.2-1.0 [facility] Comment on above: Performed By: #### L IPID, CMP, TSH #### [facility] [address] [address] [address] Kristy Hansen Calcium [Mass/Vol] 9.5 mg/dL Normal 8.5-10.1 [facility] Comment on above: Performed By: #### L IPID, CMP, TSH #### [facility] [address] [place] [address] Dr. Kristy Hansen Chloride [Moles/Vol] 104 mmol/L Normal 98-107 [facility] Comment on above: Performed By: #### L IPID, CMP, TSH #### [facility] [address] [address] [address] Kristy Hansen CO2 [Moles/Vol] 28.9 mmol/L Normal 21.0-32.0 [facility] Comment on above: Performed By: #### L IPID, CMP, TSH #### [facility] [address] [address] [address] Kristy Hansen Creatinine [Mass/Vol] 0.69 mg/dL Normal 0.55-1.02 [facility] Comment on above: Performed By: #### L IPID, CMP, TSH #### [facility] [address] [address] [address] Kristy Hansen EGFR-AF SLOV[place] >60 Normal >=[address] [facility] Comment on above: Performed By: #### L IPID, CMP, TSH #### [facility] [address] [place] [address] Dr. Kristy Hansen EGFR-NON AF [place] >60 Normal >=60 [facility] Comment on above: Performed By: #### L IPID, CMP, TSH #### [facility] [address] [place] [address] Dr. Kristy Hansen Globulin (S) [Mass/Vol] 3.9 g/dL Normal [facility] Comment on above: Performed By: #### L IPID, CMP, TSH #### [facility] [address] [place] [address] Dr. Kristy Hansen Glucose [Mass/Vol] 83 mg/dL Normal 74-106 [facility] Comment on above: Performed By: #### L IPID, CMP, TSH #### [facility] [address] [place] [address] Dr. Kristy Hansen Potassium [Moles/Vol] 4.1 mmol/L Normal 3.5-5.1 [facility] Comment on above: Performed By: #### L IPID, CMP, TSH #### [facility] [address] [place] [address] Dr. Kristy Hansen Protein [Mass/Vol] 7.6 g/dL Normal 6.4-8.2 [facility] Comment on above: Performed By: #### L IPID, CMP, TSH #### [facility] [address] [place] [address] Dr. Kristy Hansen Sodium [Moles/Vol] 141 mmol/L Normal 136-145 [facility] Comment on above: Performed By: #### L IPID, CMP, TSH #### [facility] [address] [place] [address] Dr. Kristy Hansen Urea nitrogen [Mass/Vol] 8.0 mg/dL Normal 7.0-18.0 [facility] Comment on above: Performed By: #### L IPID, CMP, TSH #### [facility] [address] [place] [address] Dr. Kristy Hansen Urea nitrogen/Creatinine [Mass ratio] 11.6 mg/mg Normal [facility] Comment on above: Performed By: #### L IPID, CMP, TSH #### [facility] [address] [place] [address] Dr. Kristy Hansen TSHon 05-25-2022 TSH 1.896 uIU/mL Normal 0.358-3.740 [facility] Comment on above: Performed By: #### L IPID, CMP, TSH #### [facility] [address] [place] [address] Dr. Kristy Hansen CBC AUTO DIFFon 11-17-2021 BASO # 0.0 103/ul Normal 0.0-0.1 [facility] Comment on above: Performed By: #### C BC #### [facility] [address] [place] [address] Dr. Kristy Hansen Basophils/100 WBC (Bld) 0.8 % Normal 0.2-2.0 [facility] Comment on above: Performed By: #### C BC #### [facility] [address] [place] [address] Dr. Kristy Hansen EO # 0.1 103/ul Normal 0.0-0.7 [facility] Comment on above: Performed By: #### C BC #### [facility] [address] [place] [address] Dr. Kristy Hansen Eosinophils/100 WBC (Bld) 2.5 % Normal 0.9-7.0 [facility] Comment on above: Performed By: #### C BC #### [facility] [address] [place] [address] Dr. Kristy Hansen Erythrocyte distribution width (RBC) [Ratio] 12.4 % Normal 11.0-15.0 [facility] Comment on above: Performed By: #### C BC #### [facility] [address] [place] [address] Dr. Kristy Hansen Hematocrit (Bld) [Volume fraction] 41.3 % Normal 36.0-48.0 [facility] Comment on above: Performed By: #### C BC #### [facility] [address] [place] [address] Dr. Kristy Hansen Hemoglobin (Bld) [Mass/Vol] 13.8 g/dL Normal 12.0-16.0 [facility] Comment on above: Performed By: #### C BC #### [facility] [address] [place] [address] Dr. Kristy Hansen IG # 0.01 10e3/ul Normal 0.00-0.03 [facility] Comment on above: Performed By: #### C BC #### [facility] [address] [place] [address] Dr. Kristy Hansen IG % 0.2 % Normal 0.0-0.5 [facility] Comment on above: Performed By: #### C BC #### [facility] [address] [place] [address] Dr. Kristy Hansen LYMPH # 2.0 103/ul Normal 1.2-3.8 [facility] Comment on above: Performed By: #### C BC #### [facility] [address] [place] [address] Dr. Kristy Hansen Lymphocytes/100 WBC (Bld) 40.3 % Normal 20.5-60.0 [facility] Comment on above: Performed By: #### C BC #### [facility] [address] [place] [address] Dr. Kristy Hansen MANUAL DIFF REQ NO Normal [facility] Comment on above: Performed By: #### C BC #### [facility] [address] [place] [address] Dr. Kristy Hansen MCH (RBC) [Entitic mass] 31.6 pg Normal 26.7-34.0 [facility] Comment on above: Performed By: #### C BC #### [facility] [address] [place] [address] Dr. Kristy Hansen MCHC (RBC) [Mass/Vol] 33.4 g/dL Normal 29.9-35.2 [facility] Comment on above: Performed By: #### C BC #### [facility] [address] [place] [address] Dr. Kristy Hansen MCV (RBC) [Entitic vol] 94.5 fL Normal 81.0-99.0 [facility] Comment on above: Performed By: #### C BC #### [facility] [address] [place] [address] Dr. Kristy Hansen MONO # 0.4 103/ul Normal 0.3-0.8 [facility] Comment on above: Performed By: #### C BC #### [facility] [address] [address] [address] Kristy Hansen Monocytes/100 WBC (Bld) 8.5 % Normal 1.7-12.0 [facility] Comment on above: Performed By: #### C BC #### [facility] [address] [address] [address] Kristy Hansen NEUT # 2.3 103/ul Normal 1.4-6.5 [facility] Comment on above: Performed By: #### C BC #### [facility] [address] [place] [address] Dr. Kristy Hansen Neutrophils/100 WBC (Bld) 47.7 % Normal 43.0-75.0 [facility] Comment on above: Performed By: #### C BC #### [facility] [address] [place] [address] Dr. Kristy Hansen Platelet mean volume (Bld) [Entitic vol] 8.3 fL Critically low 9.5-13.5 [facility] Comment on above: Performed By: #### C BC #### [facility] [address] [place] [address] Dr. Kristy Hansen PLT 312 103/ul Normal 150-450 [facility] Comment on above: Performed By: #### C BC #### [facility] [address] [place] [address] Dr. Kristy Hansen RBC 4.37 106/ul Normal 4.20-5.40 [facility] Comment on above: Performed By: #### C BC #### [facility] [address] [place] [address] Dr. Kristy Hansen WBC 4.8 103/ul Normal 4.0-11.0 [facility] Comment on above: Performed By: #### C BC #### [facility] [address] [place] [address] Dr. Kristy Hansen GLYCOHEMOGLOBIN A1Con 2021 ADA RECOMMENDATION SEE BELOW Normal [facility] Comment on above: Result Comment: ADA RECOMMENDED LIMIT 4.0 - 6.0 ADA THERAPEUTIC TARGET < 7.0 ACTION SUGGESTED > 7.0 Performed By: #### A 1C #### [facility] [address] [address] [address] Kristy Hansen Glucose [Mass/Vol] 100 mg/dL Normal [facility] Comment on above: Performed By: #### A 1C #### [facility] [address] [address] [address] Kristy Hansen HbA1c (Bld) [Mass fraction] 5.1 % Normal 4.5-6.2 [facility] Comment on above: Performed By: #### A 1C #### [facility] [address] [place] [address] Dr. Kristy Hansen LIPID PROFILEon 11-17-2021 CHOL-HDL RATIO NORM SEE BELOW Normal [facility] Comment on above: Result Comment: 3.3 - 4.4 LOW RISK 4.4 - 7.1 AVERAGE RISK 7.1 - 11.0 MODERATE RISK >11.0 HIGH RISK Performed By: #### C MP, LIPID #### [facility] [address] [address] [address] Kristy Hansen Cholesterol [Mass/Vol] 146 mg/dL Normal <=200 [facility] Comment on above: Performed By: #### C MP, LIPID #### [facility] [address] [address] [address] Kristy Hansen Cholesterol in HDL [Mass/Vol] 65 mg/dL Critically high 40-60 [facility] Comment on above: Performed By: #### C MP, LIPID #### [facility] [address] [address] [address] Kristy Hansen Cholesterol in LDL [Mass/Vol] 70.4 mg/dL Normal [facility] Comment on above: Performed By: #### C MP, LIPID #### [facility] [address] [place] [address] Dr. Kristy Hansen Cholesterol.total/Cho lesterol in HDL [Mass ratio] 2.2 {ratio} Normal [facility] Comment on above: Performed By: #### C MP, LIPID #### [facility] [address] [place] [address] Dr. Kristy Hansen HDL NORMAL > or = 60 mg/dl - LOW CARDIOVASCULAR RISK <40 mg/dl - HIGH CARDIOVASCULAR RISK Normal [facility] Comment on above: Performed By: #### C MP, LIPID #### [facility] [address] [address] [address] Kristy Hansen LDL CALC NORMAL SEE BELOW Normal [facility] Comment on above: Result Comment: <100 mg/dl OPTIMAL 100 - 129 mg/dl NEAR OR ABOVE OPTIMAL 130 - 159 mg/dl BORDERLINE HIGH 160 - 189 mg/dl HIGH >190 mg/dl VERY HIGH Performed By: #### C MP, LIPID #### [facility] [address] [place] [address] Dr. Kristy Hansen Triglyceride [Mass/Vol] 53 mg/dL Normal <=150 [facility] Comment on above: Performed By: #### C MP, LIPID #### [facility] [facility] [address] [place] [address] Dr. Kristy Hansen VLDL CALC 10.6 mg/dL Normal [facility] Comment on above: Performed By: #### C MP, LIPID #### [facility] [address] [place] [address] Dr. Kristy Hansen PROF 14(COMP METB)on 022 Albumin [Mass/Vol] 3.6 g/dL Normal 3.4-5.0 [facility] Comment on above: Performed By: #### C MP, LIPID #### [facility] [address] [place] [address] Dr. Kristy Hansen Albumin/Globulin [Mass ratio] 1.1 {ratio} Normal [facility] Comment on above: Performed By: #### C MP, LIPID #### [facility] [address] [place] [address] Dr. Kristy Hansen ALP [Catalytic activity/Vol] 66 U/L Normal 46-116 [facility] Comment on above: Performed By: #### C MP, LIPID #### [facility] [address] [place] [address] Dr. Kristy Hansen ALT [Catalytic activity/Vol] 27 U/L Normal 14-59 [facility] Comment on above: Performed By: #### C MP, LIPID #### [facility] [address] [address] [address] Kristy Hansen Anion gap [Moles/Vol] 9.1 mmol/L Normal [facility] Comment on above: Performed By: #### C MP, LIPID #### [facility] [address] [address] [address] Kristy Hansen AST [Catalytic activity/Vol] 15 U/L Normal 15-37 [facility] Comment on above: Performed By: #### C MP, LIPID #### [facility] [address] [place] [address] Dr. Kristy Hansen Bilirubin [Mass/Vol] 0.5 mg/dL Normal 0.2-1.0 [facility] Comment on above: Performed By: #### C MP, LIPID #### [facility] [address] [place] [address] Dr. Kristy Hansen Calcium [Mass/Vol] 9.1 mg/dL Normal 8.5-10.1 [facility] Comment on above: Performed By: #### C MP, LIPID #### [facility] [address] [place] [address] Dr. Kristy Hansen Chloride [Moles/Vol] 107 mmol/L Normal 98-107 [facility] Comment on above: Performed By: #### C MP, LIPID #### [facility] [address] [place] [address] Dr. Kristy Hansen CO2 [Moles/Vol] 29.9 mmol/L Normal 21.0-32.0 [facility] Comment on above: Performed By: #### C MP, LIPID #### [facility] [address] [place] [address] Dr. Kristy Hansen Creatinine [Mass/Vol] 0.70 mg/dL Normal 0.55-1.02 [facility] Comment on above: Performed By: #### C MP, LIPID #### [facility] [address] [address] [address] Kristy Hansen EGFR-AF SLOVAK >60 Normal >=60 [facility] Comment on above: Performed By: #### C MP, LIPID #### [facility] [address] [address] [address] Kristy Hansen EGFR-NON AF SLOVAK >60 Normal >=60 [facility] Comment on above: Performed By: #### C MP, LIPID #### [facility] [address] [address] [address] Kristy Hansen Globulin (S) [Mass/Vol] 3.3 g/dL Normal [facility] Comment on above: Performed By: #### C MP, LIPID #### [facility] [address] [place] [address] Dr. Kristy Hansen Glucose [Mass/Vol] 91 mg/dL Normal 74-106 [facility] Comment on above: Performed By: #### C MP, LIPID #### [facility] [address] [place] [address] Dr. Kristy Hansen Potassium [Moles/Vol] 4.0 mmol/L Normal 3.5-5.1 [facility] Comment on above: Performed By: #### C MP, LIPID #### [facility] [address] [place] [address] Dr. Kristy Hansen Protein [Mass/Vol] 6.9 g/dL Normal 6.4-8.2 [facility] Comment on above: Performed By: #### C MP, LIPID #### [facility] [address] [place] [address] Dr. Kristy Hansen Sodium [Moles/Vol] 142 mmol/L Normal 136-145 [facility] Comment on above: Performed By: #### C MP, LIPID #### [facility] [address] [place] [address] Dr. Kristy Hansen Urea nitrogen [Mass/Vol] 10.0 mg/dL Normal 7.0-18.0 [facility] Comment on above: Performed By: #### C MP, LIPID #### [facility] [address] [place] [address] Dr. Kristy Hansen Urea nitrogen/Creatinine [Mass ratio] 14.3 mg/mg Normal [facility] Comment on above: Performed By: #### C MP, LIPID #### [facility] [address] [address] [address] Kristy Hansen Urine Cultureon 09-01-2020 Bacteria identified Cx Nom (U) Reason for Exam Dysuria Urine <9,000 colonies/ml mixed bacterial skin contaminants 2 Days PERFORMED BY: [facility] [address] [place] [address] PATHOLOGIST EYE PHYSICIAN ZAHIRA ENGLISH M.D. Normal [facility] Comment on above: Performed By: #### C UU #### [address] Auth for Release of Medical Recordson 12-12-2019 Auth for Release of Medical Records [id number]# 1.00CD:[address] [facility] Urology Office/Clinic Noteon 12-04-2019 Urology Office/Clinic [...] herself at times. I feel her prior [employer] Se[employer]'s plan of intermittent self cath every 1 [...] touch catheter. Follow-up With When Contact Information Dimas Caceres MD In 1 year [address] [place] [address] [phone] Additional Instructions: Patient Education Hematuria, Adult I, [...] Oral, Daily magnesium amino acids chelate, Oral [place]-3 predniSONE, Oral, Daily Vitamin D3 Allergies Diprivan (Aspiration) Flexeril (Unknown) Social History Alcohol Current, 1-2 times per month, 08/13/2019 Tobacco F (more content not included)... Normal [facility] Comment on above: Result Comment: Elec tronically Signed By: Dimas Caceres MD\.br\Date and Time Signed: 12/04/19 17:07 EDT\.br\Electronically Co-Signed By: Lisha Quintanilla MA\.br\Date and Time Co-Signed: 12/03/19 10:17 EDT Ambulatory Clinical Summaryo n 12-03-2019 Ambulatory Clinical Summary {[id number]}CD:[id number] Aryan Rios [facility] Patient Education 10-28-20 20 Patient Education Family Medicine Hematuria, Adult [...] may irritate the prostate. ? Only take toco-lep-arhuqwr or prescription medicines for pain, discomfort, or [...] Document Reviewed: 09/10/2008 ExitCare? Patient Information ?[address] [address] [facility] Ambulatory Clinical Summaryo n 11-27-2019 Ambulatory Clinical Summary {[id number] Normal [facility] Ambulatory Clinical Summary {[id number]}CD:[id number] [facility] Patient Educationon 11-27-19 20 Patient Education Acute Urinary Retention, Female You [...] to a urinary tract infection. Only take eaqp-uul-mklayko or prescription medicines for pain, discomfort, or fever as directed by your caregiver. SEEK IMMEDIATE MEDICAL CARE IF: You develop chills, fever, or show signs of generalized illness that occurs prior to seeing your caregiver. Document Released: 01/21/2007 Document Revised: 04/15/2012 Document Reviewed: 12/24/2009 ExitCare? Patient Information ?[address] [facility] Urology Office/Clinic Noteon 11-27-2019 Urology Office/Clinic Note [...] void after (more content not included)... Normal [facility] Comment on above: Result Comment: Elec tronically Signed By: Morris LOTT, Dimsa Bowers\.br\Date and Time Signed: 11/27/19 15:53 EDT\.br\Electronically Co-Signed By: Zari Campos MA\.br\Date and Time Co-Signed: 11/27/19 14:46 EDT Vital Signs Date Time Vital Sign Value Performing Clinician Facility 12-04-2022 11:10-0400 Body height 162.56 cm Ricky Dong Other [facility] Other 12-04-2022 11:10-0400 Body mass index (BMI) [Ratio] 21.97 kg/m2 Ricky Dong Other [facility] Other 12-04-2022 11:10-0400 Body temperature 98.3 [degF] Ricky Dong Other [facility] Other 12-04-2022 11:10-0400 Body weight 58.06 kg Ricky Dong Other [facility] Other 12-04-2022 11:10-0400 Diastolic blood pressure 76 mm[Hg] Ricky Dong Other [facility] Other 12-04-2022 11:10-0400 Respiratory rate 18 /min Ricky Jacquesdavid Other [facility] Other 12-04-2022 11:10-0400 SaO2% (BldA) [Mass fraction] 99 % Ricky Jacquesdavid Other [facility] Other 12-04-2022 11:10-0400 Systolic blood pressure 122 mm[Hg] Ricky Jacquesdavid Other [facility] Other 05-12-2022 12:10-0400 Body height 162.56 cm Ricky Jacquesdavid Other [facility] Other 05-12-2022 12:10-0400 Body mass index (BMI) [Ratio] 22.14 kg/m2 Ricky Letitia Other [facility] Other 05-12-2022 12:10-0400 Body temperature 98.2 [degF] Ricky Jacquesdavid Other [facility] Other 05-12-2022 12:10-0400 Body weight 58.51 kg Ricky Jacquesdavid Other [facility] Other 05-12-2022 12:10-0400 Diastolic blood pressure 74 mm[Hg] Ricky Jacquesdavid Other [facility] Other 05-12-2022 12:10-0400 Respiratory rate 18 /min Ricky Dong Other [facility] Other 05-12-2022 12:10-0400 SaO2% (BldA) [Mass fraction] 99 % Ricky Dong Other [facility] Other 05-12-2022 12:10-0400 Systolic blood pressure 118 mm[Hg] Ricky Dong Other [facility] Other 08-02-2021 12:00-0400 Body height 162.56 cm Ricky Newton Other [facility] Other 08-02-2021 12:00-0400 Body mass index (BMI) [Ratio] 22.14 kg/m2 Ricky Newton Other [facility] Other 08-02-2021 12:00-0400 Body temperature 98.4 [degF] Ricky Newton Other [facility] Other 08-02-2021 12:00-0400 Body weight 58.51 kg Ricky Newton Other [facility] Other 08-02-2021 12:00-0400 Diastolic blood pressure 65 mm[Hg] Ricky Newton Other [facility] Other 08-02-2021 12:00-0400 SaO2% (BldA) [Mass fraction] 100 % Ricky Newton Other [facility] Other 08-02-2021 12:00-0400 Systolic blood pressure 114 mm[Hg] Ricky Newton Other [facility] Other 07-07-2021 15:30-0400 Body height 162.56 cm Ricky Newton Other [facility] Other 07-07-2021 15:30-0400 Body mass index (BMI) [Ratio] 23 kg/m2 Ricky Newton Other [facility] Other 07-07-2021 15:30-0400 Body temperature 96.8 [degF] Ricky Aman Other [facility] Other 07-07-2021 15:30-0400 Body weight 60.78 kg Ricky Aman Other [facility] Other 07-07-2021 15:30-0400 Diastolic blood pressure 70 mm[Hg] Ricky Aman Other [facility] Other 07-07-2021 15:30-0400 SaO2% (BldA) [Mass fraction] 100 % Ricky Newton Other [facility] Other 07-07-2021 15:30-0400 Systolic blood pressure 132 mm[Hg] Ricky Newton Other [facility] Other 05-18-2021 11:30-0400 Body height 162.56 cm Ricky Dong Other [facility] Other 05-18-2021 11:30-0400 Body mass index (BMI) [Ratio] 24.03 kg/m2 Ricky Dong Other [facility] Other 05-18-2021 11:30-0400 Body temperature 97.7 [degF] Ricky Dong Other [facility] Other 05-18-2021 11:30-0400 Body weight 63.5 kg Ricky Dong Other [facility] Other 05-18-2021 11:30-0400 Diastolic blood pressure 76 mm[Hg] Ricky Dong Other [facility] Other 05-18-2021 11:30-0400 Respiratory rate 16 /min Ricky Dong Other [facility] Other 05-18-2021 11:30-0400 SaO2% (BldA) [Mass fraction] 97 % Ricky Dong Other [facility] Other 05-18-2021 11:30-0400 Systolic blood pressure 116 mm[Hg] Ricky Dong Other [facility] Other 11-16-2020 11:30-0400 Body height 162.56 cm Ricky Dong Other [facility] Other 11-16-2020 11:30-0400 Body mass index (BMI) [Ratio] 22.83 kg/m2 Ricky Dong Other [facility] Other 11-16-2020 11:30-0400 Body weight 60.33 kg Ricky Dong Other [facility] Other 11-16-2020 11:30-0400 Diastolic blood pressure 78 mm[Hg] Ricky Dong Other [facility] Other 11-16-2020 11:30-0400 Respiratory rate 18 /min Ricky Dong Other [facility] Other 11-16-2020 11:30-0400 SaO2% (BldA) [Mass fraction] 99 % Ricky Dong Other [facility] Other 11-16-2020 11:30-0400 Systolic blood pressure 130 mm[Hg] Ricky Dong Other [facility] Other Encounters Encounter Date Encounter Type Care Provider Facility Start: 07-04-2023 End: 07-04-2023 ambulatory ANGELA HORNER Not Available Start: 06-18-2023 End: 06-18-2023 ambulatory ANUSHKA Augustin [facility] Start: 12-12-2022 End: 12-13-2022 ambulatory CRYSTAL CONTRERAS Not Available Start: 12-08-2022 End: 12-08-2022 ambulatory Ricky Dong Other [facility] Other Start: 12-08-2022 Telephone encounter Ricky Dong [facility] Start: 12-04-2022 End: 12-04-2022 ambulatory Ricky Dong Other [facility] Other Start: 12-04-2022 Office outpatient vi sit 25 minutes Ricky Dong [facility] Start: 12-04-2022 Telephone encounter Ricky Dong [facility] Start: 09-07-2022 End: 09-07-2022 ambulatory Ricky Dong Other [facility] Other Start: 09-07-2022 Telephone encounter Ricky Dong [facility] [place] Start: 08-29-2022 End: 08-29-2022 ambulatory Ricky Dong Other [facility] Other Start: 08-29-2022 Telephone encounter Ricky Dong [facility] [place] Start: 05-25-2022 End: 05-26-[address] RICKY DONG Facility: Start: 05-16-2022 End: 05-16-2022 ambulatory Ricky Dong Other [facility] Other Start: 05-16-2022 Telephone encounter Ricky Dong [facility] Start: 05-12-2022 End: 05-12-2022 ambulatory Ricky Dong Other [facility] Other Start: 05-12-2022 Office outpatient vi sit 15 minutes Ricky Dong [facility] Start: 05-12-2022 Telephone encounter Ricky Dong [facility] [place] Start: 04-18-2022 End: 04-18-2022 ambulatory Ricky Dong Other [facility] Other Start: 04-18-2022 Telephone encounter Ricky Dong [facility] [place] Start: 02-07-2022 End: 02-07-2022 ambulatory Ricky Dong Other [facility] Other Start: 02-07-2022 Telephone encounter Ricky Dong [facility] [place] Start: 11-17-2021 End: 11-18-[address] RICKY DONG Facility: Start: 08-02-2021 End: 08-02-2021 ambulatory Ricky Newton Other [facility] Other Start: 08-02-2021 Office outpatient vi sit 25 minutes Ricky Newton [facility] Start: 07-07-2021 End: 07-07-2021 ambulatory Ricky Newton Other [facility] Other Start: 07-07-2021 Office outpatient ne w 45 minutes Ricky Newton [facility] Start: 05-23-2021 End: 05-23-2021 ambulatory Ricky Dong Other [facility] Other Start: 05-23-2021 Telephone encounter Ricky Dong [facility] [place] Start: 05-18-2021 End: 05-18-2021 ambulatory Ricky Dong Other [facility] Other Start: 05-18-2021 Office outpatient vi sit 25 minutes Ricky Dong [facility] [place] Start: 02-16-2021 End: 02-16-2021 ambulatory Ricky Dong Other [facility] Other Start: 02-16-2021 Telephone encounter Ricky Dong [facility] [place] Start: 11-16-2020 Office outpatient vi sit 25 minutes Ricky Dong [facility] [place] Start: 11-16-2020 Telephone encounter Ricky Dong [facility] [place] Procedures Date Procedure Procedure Detail Performing Clinician Start: 06-18-2023 Follow-up visit Follow-up ANUSHKA Augustin [facility] Immunizations Immunization Date Immunization Notes Care Provider Amanda capps 05-18-2021 Shingrix 50 MCG/0.5M L; Translations: [Shingrix 50 MCG/0.5ML] Ricky Dong Other [facility] Other 04-07-2020 COVID-19 Vaccine Pfi zer - Documentation Purposes Only Ricky Dong Other [facility] Other 03-16-2020 COVID-19 Vaccine Pfi zer - Documentation Purposes Only Ricky Dong Other [facility] Other 10-09-2013 Toradol per 15 mg Ricky Talley in Other [facility] Other Payers Date Payer Category Payer Unknown [id number] 1961 Medicare [id number] 2.1 [id number] 1961 Unknown [id number] 2.16.8 [id number] 1955 Unknown [id number] 2.16.84 [id number] 1955 Unknown [id number] 2.16.84 [id number] 1955 Unknown [id number] 2.16.8 [id number] 1955 Unknown [id number] 2.16.84 [id number] 1955 Unknown [id number] Social History Date Type Detail Facility Unknown if ever smoked [facility] Other Sex Assigned At Sex Assigned At Bir th [facility] Other Clinical Notes 11-16-2020 to 12-11-2022 Note Date & Type Note Facility 12-11-2022 History general N arrative - Reported Type Medical History Hysterectomy 1996; D r. Leida due to cervical cancer, it was all contained with hysterectomy, no longer follows with Dr. Casarez Medical History Mammogram; , [facility] Medical History No history of Stress Test, [...] History see above surgical histo ry 1995 [facility] Other 11-03-2023 History general Narrative - Reported* Type Description Date Medical History Hysterectomy 1995; D r. Leida due to cervical cancer, it was all contained with hysterectomy, no longer follows with Dr. Casarez Medical History Mammogram; [facility] Medical History No history of Stress Test, [...] History see above surgical histo ry 1995 [facility] Other 11-03-2023 Evaluation note* Encounter Date Diagnosis Assessment Notes Treatment Notes Treatment Clinical Notes Dec, Migraine (ICD-10 - G43.909) [facility] Other 10-30-2023 Evaluation note* Encounter Date Diagnosis [...] abuse treatments are being prescribed. Nov, Other assisted (current) drug therapy (ICD-10 - Z79.899) Nov, [...] and different locations to have this done. [facility] Other 08-03-2023 History general Narrative - Reported* Type Description Date Medical History Hysterectomy 1995; Barbara Casarez due to cervical cancer, it was all contained with hysterectomy, no longer follows with Dr. Casarez Medical History Mammogram; , [facility] Medical History No history of Stress Test, CT Sc an Abdomen or Pelvis Medical History History of Chicken Pox as a Chil d Medical History Colonoscopy 03-04-12; Dr. Ayana fonseca Medical History Flu Vaccine and 2015 Medical History Hyperlipidemia Medical History Dermalgraphia Medical History migraines Surgical History Total Hysterectomy; Dr. Casarez- due to cervical cancer 1995 Surgical History Colonoscopy, Dr. Nicolas / Katharine rmal 03-04-12 Hospitalization History see above surgical histo ry 1995 [facility] Other 08-03-2023 Evaluation note* Encounter Date Diagnosis Assessment Notes Treatment Notes Treatment Clinical Notes Sep, Hyperlipidemia (ICD-10 - E78.5) [facility] Other 07-25-2023 Evaluation note* Encounter Date Diagnosis [...] Other 11:35 AM - 11:4 6 AM [facility] Other 04-11-2023 History general Narrative - Reported* Type Description Date Medical History Hysterectomy 1995; Barbara rArvin Casarez due to cervical cancer, it was all contained with hysterectomy, no longer follows with Dr. Casarez Medical History Mammogram; [facility] Medical History No history of Stress Test, [...] History see above surgical histo ry 1995 [facility] Other 04-11-2023 Evaluation note* Encounter Date Diagnosis Assessment Notes Treatment Notes Treatment Clinical Notes May, Eustachian tube dysfunction, right (ICD-10 - H69.81) [facility] Other 04-10-2023 History general Narrative - Reported* Type Description Date Medical History Hysterectomy 1995; Barbara rArvin Casarez due to cervical cancer, it was all contained with hysterectomy, no longer follows with Dr. Casarez Medical History Mammogram; , [facility] Medical History No history of Stress Test, [...] History see above surgical histo ry 1995 [facility] Other 04-07-2023 History general Narrative - Reported* Type Description Date Medical History Hysterectomy 1995; Barbara Casarez due to cervical cancer, it was all contained with hysterectomy, no longer follows with Dr. Casarez Medical History Mammogram; [facility] Medical History No history of Stress Test, [...] History see above surgical histo ry 1995 [facility] Other 04-07-2023 Evaluation note* Encounter Date Diagnosis [...] using q-tips and the itching should resolve. [facility] Other 03-14-2023 Evaluation note* Encounter Date Diagnosis Assessment Notes Treatment Notes Treatment Clinical Notes Apr, Other specified health status (ICD-10 - Z78.9) [facility] Other 01-03-2023 Evaluation note* Encounter Date Diagnosis Assessment Notes Treatment Notes Treatment Clinical Notes Feb, Hyperlipidemia (ICD-10 - E78.5) [facility] Other 06-28-2022 History general Narrative - Reported* Type Description Date Medical History Hysterectomy 1995; Barbara Casarez due to cervical cancer, it was all contained with hysterectomy, no longer follows with Dr. Casarez Medical History Mammogram; [facility] Medical History No history of Stress Test, [...] History see above surgical histo ry 1995 [facility] Other 06-28-2022 Evaluation note* Encounter Date Diagnosis [...] Jul, BMI 22.0-22.9, adult (ICD-10 - Z68.22) [facility] Other 06-02-2022 Evaluation note* Encounter Date Diagnosis [...] changes in symptoms and/or problems with treatment [facility] Other 04-13-2022 Evaluation note* Encounter Date Diagnosis [...] its of medication were reviewed. May, Other assisted (current) drug therapy (ICD-10 - Z79.899) May, [...] night. She has been following with Dr. Pimentel who comes to [place] from [place]. Based on her urinalysis done on 05-12-21 it does not show infection, but it had a trace of blood which could be from her bladder being irritated. I did recommend that if things do not feel right she return to see Dr. Pimentel for evaluation and to discuss the hematuria. May, Other I did recommend that she get the Shingrix vaccine series once her cold sore has cleared up. [facility] Other 01-12-2022 Evaluation note* Encounter Date Diagnosis [...] Feb, Other 10:38 AM - 10:46 AM [facility] Other 10-12-2021 Evaluation note* Encounter Date Diagnosis Assessment Notes Treatment Notes Treatment Clinical Notes Nov, Anxiety (ICD-10 - F41.9) [facility] Other 10-12-2021 Evaluation note* Encounter Date Diagnosis [...] its of medication were reviewed. Nov, Other assisted (current) drug therapy (ICD-10 - Z79.899) Nov, [...] which was normal. Will continue to monitor. [facility] Other Evaluation noteNo [place] Other History general Narrative - Reported* Type Description Date Medical History Hysterectomy 1995; D r. Phibbs due to cervical cancer, it was all contained with hysterectomy, no longer follows with Dr. Casarez Medical History Mammogram; [facility] Medical History No history of Stress Test, [...] History see above surgical histo ry 1995 [facility] Other History general Narrative - Reported* Type Description Date Medical History Hysterectomy 1995; D r. Phibbs due to cervical cancer, it was all contained with hysterectomy, no longer follows with Dr. Casarez Medical History Mammogram; [facility] Medical History No history of Stress Test, [...] History see above surgical histo ry 1995 [facility] Other Reason for visit Narrativereview labs/med refill, discuss multiple issues, see treatment plan for further [facility] Other Reason for visit Narrativereview labs, discuss multiple issues, see treatment plan for further [facility] Other Summary Purpose Family History No Family [...] tube dysf unction, right (H69.81) Referral Organization [facility] [place] Referring Provider First Name Ricky Referring Provider Last Name Letitia Referring Provider Specialty Family Prac destiny Referred Organization [facility] Referred Provider Emperatriz Durbin Referred Address ,[place], [place],[address] Referred Provider Specialty Ear, Nose an d [...] apnea Diagnosis 1 Fatigue (R53.83) Referral Organization [facility] [place] Referring Provider First Name Ricky Referring Provider Last Name Letitia Referring Provider Specialty [facility] Elian dixon Referred Organization [facility] Referred Provider Nelson Mukherjee Referred Address [address] [place] Referred Provider Specialty Sleep Medici ne Referral Priority Routine General Notes Ramya Ventura 05/18/2021 02:21:24 PM > [facility] Sleep Lab referral form faxed with visit note, med list and demographics. pt understands she will be contacted to schedule this appt. Additional Source Comments INFORMATION SOURCE (unrecogn ized section and content) DATE CREATED AUTHOR 11/22/2020 Gabriel Hurt [facility] DATE CREATED AUTHOR AUTHOR'S ORGANIZ ATION 08/11/2021 [facility] DATE CREATED AUTHOR AUTHOR'S ORGANIZ ATION 05/30/2022 [facility] DATE CREATED AUTHOR AUTHOR'S ORGANIZ ATION 06/19/2023 [facility] DATE CREATED AUTHOR AUTHOR'S ORGANIZ ATION 07/05/2023 [facility] EPIC REASON FOR VISIT (unrecogniz ed [...] BE BASED ON THE PRIMARY CLINICAL RECORDS. [facility]. provides no warranty or guarantee of the accuracy or completeness of information in this document.
[2023-12-06 11:22] LABS: Eosinophils Absolute Auto 0.1 10^3/uL (0.0-0.7); Eosinophils Percent Auto 1.9 % (0.9-7.0); Hematocrit 40.9 % (36.0-48.0); Hemoglobin 14.2 g/dL (12.0-16.0); Lymphocytes Absolute Auto 1.6 10^3/uL (1.2-3.8); Lymphocytes Percent Auto 39.1 % (20.5-60.0); Mean Corpuscular HGB Conc 34.7 g/dL (29.9-35.2); Mean Corpuscular Hemoglobin 32.6 pg (26.7-34.0); Mean Corpuscular Volume 93.8 fL (81.0-99.0); Mean Platelet Volume 8.3 fL (9.5-13.5); Monocytes Absolute Auto 0.3 10^3/uL (0.3-0.8); Monocytes Percent Auto 7.9 % (1.7-12.0); Neutrophils Absolute Auto 2.1 10^3/uL (1.4-6.5); Neutrophils Percent Auto 50.1 % (43.0-75.0); Platelet Count 331 10^3/uL (150-450); Red Blood Count 4.36 10^6/uL (4.20-5.40); Red Cell Distribution Width 12.1 % (11.0-15.0); White Blood Count 4.2 10^3/uL (4.0-11.0)
[2023-12-06 11:54] LABS: Alanine Aminotransferase 21 U/L (14-59); Albumin Globulin Ratio 0.9; Albumin Level 3.4 g/dL (3.4-5.0); Alkaline Phosphatase 79 U/L (46-116); Anion Gap 13.5; Aspartate Amino Transferase 15 U/L (15-37); BUN Creatinine Ratio 15.5; Bilirubin Total 0.4 mg/dL (0.2-1.0); Calcium 9.1 mg/dL (8.5-10.1); Carbon Dioxide 26.7 mmol/L (21.0-32.0); Chloride 106 mmol/L (98-107); Chol HDL Ratio 3.6; Cholesterol 235 mg/dL (<=200); Estimated GFR (African America >60 (>=60 mL/min/1.73m^2); Estimated GFR (Non-African Ame >60 (>=60 mL/min/1.73m^2); Globulin 3.8 g/dL; Glucose 102 mg/dL (74-106); HDL Cholesterol 65 mg/dL (40-60); Potassium 4.2 mmol/L (3.5-5.1); Sodium 142 mmol/L (136-145); Total Protein 7.2 g/dL (6.4-8.2); Triglycerides 109 mg/dL (<=150); VLDL CHOLESTEROL 21.8 mg/dL
[2023-12-06 12:10] LABS: Estimated Average Glucose 103 mg/dL; Glycohemoglobin A1C 5.2 % (4.5-6.2)
== END 2023-12-06 10:49 | disposition home or self-care (01) ==
LOC: LAB 10:49
PROVIDERS: PCP Family Medicine; Visit Provider Family Medicine
DX: Z79.899 Other long term (current) drug therapy (principal); E78.5 Hyperlipidemia, unspecified; R73.9 Hyperglycemia, unspecified
CPT/HCPCS: 36415; 80053; 80061; 83036; 85025

== ENCOUNTER 2023-12-24 14:46 | Outpatient (REF) | payer MEDICARE, OTHER, SELFPAY ==
[2023-12-24 15:59] LABS: Internal Control Within Normal Limits; Occult Blood Negative
== END 2023-12-24 14:47 | disposition home or self-care (01) ==
LOC: LAB 14:46
PROVIDERS: PCP Family Medicine; Visit Provider Family Medicine
DX: Z12.11 Encounter for screening for malignant neoplasm of colon (principal)
CPT/HCPCS: G0328

== ENCOUNTER 2024-06-06 09:50 | Outpatient (OUT) | payer MEDICARE, OTHER, SELFPAY ==
[2024-06-06 10:17] LABS: Basophils Percent Auto 0.7 % (0.2-2.0); Eosinophils Absolute Auto 0.1 10^3/uL (0.0-0.7); Eosinophils Percent Auto 2.2 % (0.9-7.0); Hemoglobin 14.2 g/dL (12.0-16.0); Immature Granulocytes Abs Auto 0.02 10^3/uL (0.00-0.03); Immature Granulocytes Pct Auto 0.4 % (0.0-0.5); Lymphocytes Absolute Auto 1.5 10^3/uL (1.2-3.8); Lymphocytes Percent Auto 26.9 % (20.5-60.0); Mean Corpuscular HGB Conc 33.8 g/dL (29.9-35.2); Mean Corpuscular Hemoglobin 31.9 pg (26.7-34.0); Mean Corpuscular Volume 94.4 fL (81.0-99.0); Mean Platelet Volume 8.2 fL (9.5-13.5); Monocytes Absolute Auto 0.4 10^3/uL (0.3-0.8); Monocytes Percent Auto 6.6 % (1.7-12.0); Neutrophils Absolute Auto 3.5 10^3/uL (1.4-6.5); Neutrophils Percent Auto 63.2 % (43.0-75.0); Platelet Count 319 10^3/uL (150-450); Red Blood Count 4.45 10^6/uL (4.20-5.40); Red Cell Distribution Width 12.1 % (11.0-15.0); White Blood Count 5.6 10^3/uL (4.0-11.0)
[2024-06-06 10:34] LABS: Estimated Average Glucose 108 mg/dL; Glycohemoglobin A1C 5.4 % (4.5-6.2)
[2024-06-06 11:09] LABS: Alanine Aminotransferase 33 U/L (14-59); Albumin Level 3.5 g/dL (3.4-5.0); Alkaline Phosphatase 72 U/L (46-116); Anion Gap 11.6; Aspartate Amino Transferase 16 U/L (15-37); BUN Creatinine Ratio 17.7; Bilirubin Total 0.4 mg/dL (0.2-1.0); Calcium 9.1 mg/dL (8.5-10.1); Carbon Dioxide 30.5 mmol/L (21.0-32.0); Chloride 105 mmol/L (98-107); Chol HDL Ratio 2.5; Cholesterol 167 mg/dL (<=200); Estimated GFR (African America >60 (>=60 mL/min/1.73m^2); Estimated GFR (Non-African Ame >60 (>=60 mL/min/1.73m^2); Globulin 3.6 g/dL; Glucose 95 mg/dL (74-106); HDL Cholesterol 67 mg/dL (40-60); Potassium 4.1 mmol/L (3.5-5.1); Sodium 143 mmol/L (136-145); Thyroid Stimulating Hormone 1.913 uIU/mL (0.358-3.740); Total Protein 7.1 g/dL (6.4-8.2); Triglycerides 123 mg/dL (<=150); VLDL CHOLESTEROL 24.6 mg/dL
== END 2024-06-06 09:51 | disposition home or self-care (01) ==
PROVIDERS: PCP Family Medicine; Visit Provider Family Medicine
DX: Z79.899 Other long term (current) drug therapy (principal); R73.9 Hyperglycemia, unspecified; E78.5 Hyperlipidemia, unspecified; E03.9 Hypothyroidism, unspecified
CPT/HCPCS: 36415; 80053; 80061; 83036; 84443; 85025

== ENCOUNTER 2024-12-19 11:28 | Outpatient (OUT) | payer MEDICARE, OTHER, SELFPAY ==
--- OUTSIDE RECORDS SUMMARY | 2024-12-19 11:32 | XMS_ITS | Clinical Summary ---
Author Organization [facility] Address [id number] [place] [address] Care Team Providers Care Entomology Teacher Name Role Phone JacquesdavidDmitri DO Primary Care Provider [phone] Allergies Active AllergyReactionsCriticalityNoted DateCommentsCyclobenzaprineHeadache 03/26/20194214Byuxxdha56/27/2020 bad experience Medications MedicationSigDispense QuantityRefillsLast FilledStart DateEnd DateStatus omega-3 acid ethyl esters (LOVAZA) 1 gram capsule Take 2 capsules (2 g total) by mouth in the morning and 2 capsules (2 g total) before bedtime.Active coenzyme Q10 30 mg capsule Take 100 mg by mouth 3 (three) times a day.Active atorvastatin (LIPITOR) 10 mg tablet Take 1 tablet (10 mg total) by mouth in the morning.Active tncnxcw-erbpnbofgp-BMF-caff (FIORINAL WITH CODEINE) capsule Take 1 capsule by mouth every 4 (four) hours as needed for pain.Active d-mannose 500 mg capsule Take by mouth. PRNActive opxhxyhyifet-Ga-sdzv-minerals tablet Take 1 tablet by mouth in the morning.Active Active Problems ProblemNoted DateDiagnosed DateUrinary afxqfanlg35/09/2020 Overview (06/18/2023): ==== 06/18/2023 ==== still voiding well. No problems. No UTI no retention. Happy with current state. ==== 06/12/2022 ==== doing well. No incontinence no retention no UTI. Stable situation. PLAN: Return clinic 1 year ====10/12/21====Doing well other than UTI symptoms last week which for the most has resolved. She feels she is emptying. ==== 04/04/2021 ==== no history of retention. Recent symptoms of UTI. Sensitive Levaquin. Prescription sent. ====09/29/20====PVR 71. UA neg. Occasional UTI symptoms. I told her that she should contact the office any time she suspects an infection so we can check a UA/C&S. She can also contact us to have [facility] instillations done as needed. ==== 03/29/2020 ==== s/p induction therapy U-M solution === 01/14/2020 ==== patient was seen 2nd opinion. I reviewed her previous urologist notes. Many years ago after gynecological procedure she had her bladder ???nicked. After that time she had been on intermittent straight catheterization about every 1-2 weeks. Patient has complaints of at time some di fficulty urinating some hesitancy. Other time she can urinate fine. Occasional she has had recurrent UTIs. She has had a full urologic workup outside urologist starting roughly in August up to about November or so. This consisted of functional bladder capacity determined to be roughly 7-17 oz. She brings in a voiding log today when she has been double voiding show have some urge urge to go to the bat hroom anywhere from 250 to of 500 cc or so. But no incontinence. She had renal ultrasound performeddemonstrating some cortical thinning bilaterally but no hydronephrosis. She had a CT scan demonstrating 3 mm to 4 mm of fat in the right kidney secondary to previous potential infection or insult. Some thickening of the bladder. No evidence of any hydronephrosis no renal masses. BUN and creatinine were normal. She had a cystoscopy bladder biopsy demonstrating negative pathology. 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 Patient wishes to change her urologic care. Her postvoid residual today is 74 cc. She has no constipation She had urodynamic study in October demonstrating some uninhibited bladder contractions. Plan: I would continue on her timed voids. She has had a very thorough and complete workup by her previous urologist within last few months or so. No indication to repeat such. We discussed [employer] [place] bladder solution will try to withhold the steroid component although systemic absorption would be quite minimal via the intravesical route we discussed potentially bethanechol as well as InterStim. Will just see how she does with [facility] in return to the office. She may catheterize whenever she feels like she needs to. Assessment & Plan (06/18/2023 1:53 PM EDT): Doing very well. She certainly could see me sooner but otherwise will see her back in 1 year. Assessment & Plan (10/12/2021 1:19 PM EDT): She would like us to send her urine for culture. We will call her with the results. We did discuss another series of [facility] instillations. She would like to wait and see how she does. If her symptomsbecome recurrent, she will call to schedule, otherwise we will see her back in 6 months Assessment & Plan (04/04/2021 1:58 PM EST): Will have her treat her UTI with Levaquin now---if she gets another UTI she can call the office andthen we can consider giving her some [employer] [place] bladder solution on a scheduled basis. Assessment & Plan (03/29/2020 2:02 PM EST): After induction therapy [employer] [place] bladder solution is done quite well. We discussed either maintenance therapy or just observation with maintenance p.r.n.. She chooses the ladder. Will see her back in about 4-6 months in the office she may call however for [employer] [place] bladder treatment. This would be fine. Prescription drug management performed during today's office visit Family History Medical HistoryRelationNameCommentsCataractsMotherHypertensionMotherRelationName StatusCommentsFatherDeceasedMotherDeceased Social History Tobacco UseTypesPacks/DayYears UsedDateSmoking Tobacco: NeverSmokeless Tobacco: Never Tobacco Cessation:Counseling Given: Not Answered Alcohol UseStandard Drinks/WeekCommentsNever0 (1 standard drink = 0.6 oz pure alcohol)AUDIT-CAnswerDate RecordedFrequency of Alcohol ConsumptionNever 03/26/2019Average Number of DrinksNot on file03/26/2019Frequency of Binge DrinkingNot on file03/26/2019ChildcareAnswerDate RecordedChildcareUnknown 07/17/2018EmploymentAnswerDate VboxzwrxQkdsfulimgGyvrtet27/12/2019Hunger ScreeningAnswerDate RecordedWithin the past 12 months we worried whether our food would run out before we got money to buy more.Never True06/18/2023Within the past 12 months the food we bought just didn't last and we didn't have money to get more.Never True4Purpose - LifeAnswerDate RecordedPurpose and direction in cpmoXehzomj13/12/2021CommentsNoSex and Gender Information ValueDate RecordedSex Assigned at BirthNot on fileLegal WswFsfnbe39/06/2015 11:38 AM EDTGender IdentityNot on fileSexual OrientationNot on file Last Filed Vital Signs Vital SignReadingTime TakenCommentsBlood Nvibukpj549/7105 1:39 PM EDT Ojirp575606/18/2023 1:39 PM IJVNaqtvdpqljc86.6 ??C (97.9 ??F)04/17/2019 6:30 AM EDTRespiratory Ijyr5603 12:57 PM EDTOxygen Wvqupsmllh17%04/17/2019 6:30 AM EDTInhaled Oxygen Concentration--Ovzeky31.2 kg (126 lb)06/18/2023 1:39 PM EDT Mptvbx804.1 cm (5' 5 )06/18/2023 1:39 PM EDTBody Mass Index20.9706/18/2023 1:39 PM EDT Plan of Treatment Health MaintenanceDue DateLast DoneCommentsDepression Efrrsshnr18/28/1966 DTaP,Tdap and Td Vaccines (1 - Tdap)1972Zoster (Shingles) Vaccine (1 of 2) 11/03/2003Fall Risk Tyzccjjif67/28/2019Adult BMI Lmyuymwqd58 Tobacco Ymqynyibj524COVID-19 Vaccine (3 - season) 503/04/2020, 03/16/2020Influenza Zopmcrr06/, 10/06/2018, 12/09/2008RSV ( or age 60+ yrs) (1 - 1-dose 75+ series) 2028 Medical Devices ImplantedTypeAreaManufacturerDevice IdentifierShelf Expiration DateModel / Serial / LotLens Iol Ultrasert 14.5d - [id number] - [id number] Implanted:Qty: 1 on 04/03/2019 by Tanya Barragan MD at [facility]: [id number] 14.5 / [id number] / NALens Iol Ultrasert 15.5d - [id number] - [id number] Implanted:Qty: 1 on 04/17/2019 by Tanya Barragan MD at [facility]: [id number] 15.5 / [id number] / [place] [id number] Care Teams Team MemberRelationshipSpecialtyStart DateEnd Date Dmitri Hess DO [address] [place] [address] [place] [address] [place] [address] PCP - GeneralFacoly Medicine04/03/19
--- OUTSIDE RECORDS SUMMARY | 2024-12-19 11:32 | XMS_ITS | Clinical Summary ---
Author Organization [facility] Healthcare Address [address] [place] [address] Care Team Providers Care Entry Level Programmer Name Role Phone Dmitri Hess MD Primary Care Provider [phone] Allergies Active AllergyReactionsCriticalityNoted DateCommentsCyclobenzaprineHeadache, Kgblfpm8503/26/20192457CohlxloyMnodfue94/27/5798FthjtehddsLkxbnda84/27/2023 Medications MedicationSigDispense QuantityRefillsLast FilledStart DateEnd DateStatus coenzyme Q-10 100 MG capsule Take 1 capsule by mouth 1 (one) time each day at the same time.Active fskrvwausx-deqygmh-fwzidrcc-codeine (Fiorinal with Codeine #3) 88-578-26-30 MG capsule Take 1 capsule by mouth every 4 (four) hours if needed.Active famciclovir (Famvir) 500 MG tablet Take 500 mg by mouth in the morning and 500 mg in the evening and 500 mg before bedtime.Active atorvastatin (Lipitor) 10 MG tablet Take 10 mg by mouth 1 (one) time each day at the same time.Active acyclovir (Zovirax) 5 % ointment 06/05/2023ctive cholecalciferol (Vitamin D-3) 50 MCG (1999 UT) capsule Daily06/05/2023ctive D-Mannose 500 MG capsule Take by mouthActive Multiple Vitamins-Minerals (One Daily Calcium/Iron) tablet Take 1 tablet by mouth in the morning.Active omega-3 (Fish Oil) 500 MG capsule 1 capsule every 12 (twelve) hoursActive Active Problems ProblemNoted DateDiagnosed DateAsymptomatic fitzwygttcn25/29/2024urrent smoker 07/04/2023 Overview (07/04/2023): Added secondary to documentation in Social History. Pspyfra8607/04/20232376Nnctulzewjeyo62/29/3903Qejloakgsnvqgl73/29/2024Incomplete emptying of gzywypy1607/04/2023Increased frequency of qmyjweetc69/29/2024Insomnia 07/04/20230956Crrnskye45/29/6243Uciktgjr74/29/2024ecurrent urinary tract infection 07/04/2023enal audwuqi1907/04/2023enal mass07/04/2023Tinnitus, bilateral 07/04/2023isorder of igvwnkr1707/04/20233477Zprbmhc61/27/2023Mild depression 08/31/2022ostmenopausal atrophic gawsntxyq93/27/2023Tongue, dwiyakuo18/27/2023 Tonsil stone08/31/2022ETD (Eustachian tube dysfunction), eqafhixaf57/27/2023 Urinary mijofnopm05/09/2020 Overview (07/04/2023): ==== 06/18/2023 ==== still voiding well. No [...] after gynecological procedure she had her bladder ?nicked. After that time she had been on intermittent straight catheterization about every 1-2 weeks. Patient has complaints of at time some difficulty urinating some hesitancy. Other time she can [...] some urge urge to go to the bathroom anywhere from 250 to of 500 cc or so. But no incontinence. She had renal ultrasound performed demonstrating some cortical thinning bilaterally but no hydronephrosis. She had a CT scan demonstrating 3 mm to 4 mm of fat in the right kidney secondary to previous potential infection or insult. Somethickening of the bladder. No evidence of any [...] No indication to repeat such. We discussed [facility] bladder solution will try to withhold the steroid component although systemic absorption would be quite minimal via the intravesical route we discussed potentially bethanechol as well as InterStim. Will just see how she does with [facility] in return to the office. She may catheterize whenever she feels like she needs to. Last Assessment & Plan: Doing very well. She certainly could see me sooner but otherwise will see her back in 1 year. Resolved Problems ProblemNoted DateDiagnosed DateResolved DateHx of ohtudlgfmkib62/27/2023 08/31/2022Vaginal pdtjhekq54 Family History Medical HistoryRelationNameCommentsCancerFatherCOPDMotherHeart failureMotherNo Known WaoyuclvZvjedvFnwtjtayNqiuTjehdaAmyspgosAbsrwhnq0SwxokpEwbujtbiBnnkxy DeceasedSister Social History Tobacco UseTypesPacks/DayYears UsedDateSmoking Tobacco: FormerCigarettesQuit: 1970Smokeless Tobacco: Never Tobacco Cessation:Counseling Given: Not Answered Alcohol UseStandard Drinks/WeekCommentsNot Currently0 (1 standard drink = 0.6 oz pure alcohol)PHQ-2AnswerDate RecordedPatient Health Questionnaire-2 Score0 4CommentsNoSex and Gender InformationValueDate RecordedSex Assigned at BirthNot on fileLegal NzgWhcvrx24/15/2023 9:27 PM EDTGender Identity Not on fileSexual OrientationNot on file Last Filed Vital Signs Vital SignReadingTime TakenCommentsBlood Frnthmhc189/62007/04/2023 2:00 PM EDT Pulse--Temperature--Respiratory Rate--Oxygen Saturation--Inhaled Oxygen Concentration--Noavcx78.9 kg (127 lb 9.6 oz)07/04/2023 2:00 PM OMNDanulq414.1 cm (5' 5 )07/04/2023 2:00 PM EDTBody Mass Index21.23007/04/2023 2:00 PM EDT Plan of Treatment [place] [phone] Care Teams Team MemberRelationshipSpecialtyStart DateEnd Date Dmitri Hess MD [address] [place] [address] [place] [address] [facility] - [facility]06/26/22
[2024-12-19 12:04] LABS: Hematocrit 42.4 % (36.0-48.0); Hemoglobin 14.4 g/dL (12.0-16.0); Immature Granulocytes Abs Auto 0.01 10^3/uL (0.00-0.03); Immature Granulocytes Pct Auto 0.2 % (0.0-0.5); Lymphocytes Absolute Auto 1.7 10^3/uL (1.2-3.8); Mean Corpuscular HGB Conc 34.0 g/dL (29.9-35.2); Mean Corpuscular Hemoglobin 31.9 pg (26.7-34.0); Mean Corpuscular Volume 93.8 fL (81.0-99.0); Platelet Count 342 10^3/uL (150-450); Red Blood Count 4.52 10^6/uL (4.20-5.40); White Blood Count 5.6 10^3/uL (4.0-11.0)
[2024-12-19 12:22] LABS: Alanine Aminotransferase 41 U/L (14-59); Albumin Globulin Ratio 1.0; Albumin Level 3.5 g/dL (3.4-5.0); Alkaline Phosphatase 78 U/L (46-116); Anion Gap 10.3; Aspartate Amino Transferase 23 U/L (15-37); Blood Urea Nitrogen 11.0 mg/dL (7.0-18.0); Calcium 9.1 mg/dL (8.5-10.1); Carbon Dioxide 29.9 mmol/L (21.0-32.0); Chloride 106 mmol/L (98-107); Cholesterol 191 mg/dL (<=200); Estimated GFR (African America >60 (>=60 mL/min/1.73m^2); Estimated GFR (Non-African Ame >60 (>=60 mL/min/1.73m^2); Globulin 3.6 g/dL; Glucose 96 mg/dL (74-106); HDL Cholesterol 60 mg/dL (40-60); Potassium 4.2 mmol/L (3.5-5.1); Sodium 142 mmol/L (136-145); Total Protein 7.1 g/dL (6.4-8.2); Triglycerides 144 mg/dL (<=150); VLDL CHOLESTEROL 28.8 mg/dL
== END 2024-12-19 11:29 | disposition home or self-care (01) ==
LOC: LAB 11:30
PROVIDERS: PCP Family Medicine; Visit Provider Family Medicine
DX: Z79.899 Other long term (current) drug therapy (principal); E78.5 Hyperlipidemia, unspecified; R73.9 Hyperglycemia, unspecified
CPT/HCPCS: 36415; 80053; 80061; 83036; 85025

== ENCOUNTER 2025-01-12 09:51 | Outpatient (REF) | payer MEDICARE, OTHER, SELFPAY ==
--- OUTSIDE RECORDS SUMMARY | 2025-01-12 09:56 | XMS_ITS | CCD ---
Author Organization [facility] Care Team Providers Care Emergency Room Physician Name Role Phone Ricky Dong Unavailable Ricky Newton Unavailable LETITIA, DR GARCÍA Admitting Unavailable LETITIA, DR GARCÍA Attending Unavailable LETITIA, DR GARCÍA Primary Care Unavailable LETITIA, DR GARCÍA Consulting Unavailable LETITIA, DR GARCÍA Admitting Unavailable LETITIA, DR GARCÍA Attending Unavailable LETITIA, DR GARCÍA Primary Care Unavailable LETITIA, DR GARCÍA Consulting Unavailable ANUSHKA PIMENTEL Attending RICKY Lilly Referring Unavailable RICKY DONG Primary Care Unavailable CRYSTAL CONTRERAS Attending Unavailable ANGELA HORNER Attending Unavailable ANGELA HORNER Referring Unavailable Ricky Dong DO Primary Care Provider [phone] Allergies Allergy ClassificationReported Allergen(s)Allergy TypeDate of OnsetReaction(s) Facility (20 sources)Propofol; Translations: [PROPOFOL]Drug Lcpaopy23-09-2242ydnhnsdrx [facility] Repository (19 sources)tiZANidineDrug Hggjaib36-20-4652bchockgtoTflahztwyKnox Community Hospital (18 sources)steroids caused eye pressure to go upPropensity to adverse reactions [facility] Other (1 source)cyclobenzaprineDrug AllergyThe [facility] (1 source)PhenprocoumonDrug AllergyThe [facility] (1 source)PropofolDrug AllergyThe [facility] (2 sources)cyclobenzaprine; Translations: [CYCLOBENZAPRINE]Drug Allergy 55-64-0606NoqvqbzaUitRxrqgp Repository (1 source)steroids caused eye pressure tAllergy to -77-2452Tlqdbog [facility] HospitalComment on above:Free Text Allergy: steroids caused eye pressure to go up Medications Current Medications MedicationDrug Class(es)DatesSig (Normalized)Sig (Original)acetaminophen 250 mg / aspirin 250 mg / caffeine 65 mg oral tablet (14 sources)Platelet Aggregation Inhibitor, Nonsteroidal Anti-inflammatory Drug, Central Nervous System Stimulant, Methylxanthinetake 2 tablets by mouth every twenty-four hoursExcedrin Migraine 250-250-65 MG 2 tablets Orally Once a day prn Activeacetaminophen 300 mg / butalbital 50 mg / caffeine 40 mg oral capsule (2 sources)Barbiturate, Central Nervous System Stimulant, MethylxanthineStart: 14-23-1065gsby 1 capsule by mouth every four hoursFioricet 50-300-40 MG 1 capsule Orally every 4 hrs for 5 days Nov, ActiveAcetaminophen / butalbital / Caffeine / Codeine (2 sources)Opioid Agonist, Barbiturate, Central Nervous System Stimulant, MethylxanthineStart: 55-61-4919zgvg 50-325 capsules by mouth every four hours as neededFioricet with Codeine 49-674-52-30 capsule Active 1 CAP PO Every 4 hours as needed for tension headache 04 07December 10, 2023 11:53amStart: 06-06-2023 End: 17-67-6434ybdt 50-325 capsules by mouth every four hours as neededFioricet with Codeine 84-728-02-30 capsule Discontinued 1 CAP PO Every 4 hours as needed for tension headache 04 07June 06, 2023 12:00am December 10, 2023 11:54am acyclovir 800 mg oral tablet (20 sources)Herpesvirus Nucleoside Analog DNA Polymerase Inhibitor, Herpes Simplex Virus Nucleoside Analog DNA Polymerase Inhibitor, Herpes Zoster Virus Nucleoside Analog DNA Polymerase InhibitorStart: 24-88-2647cglw 1 tablet by mouth four times dailyAcyclovir 800 mg tablet Active 800 MG PO Four times daily 24 06March 07, 2024 1:00amStart: 06-05-2023 End: 47-30-8957Srqcgzyjz 5 % ointment Discontinued APPLIC TOPICAL as needed June 05, 2023 1:41pm March 07, 2024 11:48am 1 application to affected area Externally five times a day as directedStart: 29-97-4397Atrrdra 5 % 1 application to affected area Externally five times a day as directed prn Nov,ctiveStart: 58-41-0552Vexfuji 5 % 1 application to affected area 5 times a day Externally Five times a day as directed 2015 ActiveAlive Once Daily Womens 50+ - (12 sources)Alive Once Daily Womens 50+ - as directed Orally Not-TakingAlive Once Daily Womens 50+ - as directed Orally Activeamoxicillin 875 mg oral tablet (3 sources)Penicillin-class AntibacterialStart: 24-07-4791wrrp 1 tablet by mouth every twelve hoursAmoxicillin 875 MG 1 tablet Orally Twice a day for 10 days May, Activeaspirin 325 mg / butalbital 50 mg / caffeine 40 mg / codeine phosphate 30 mg oral capsule (1 source)Platelet Aggregation Inhibitor, Opioid Agonist, Barbiturate, Nonsteroidal Anti-inflammatory Drug, Central Nervous System Stimulant, Methylxanthinetake 1 capsule by mouth every four hours as needed for pain uuatkee-punuwbslof-DQP-caff (FIORINAL WITH CODEINE) capsule Take 1 capsule by mouth every 4 (four) hours as needed for pain. Activeatorvastatin 10 mg oral tablet (20 sources)HMG-CoA Reductase InhibitorStart: 06-05-2023 End: 90-99-1618fkmz 1 tablet by mouth once dailyAtorvastatin (Lipitor) 10 mg tablet Active 10 MG PO Daily May 08, 2024 10:48amcholecalciferol 0.05 mg oral capsule (1 source)Vitamin DStart: 46-44-2575wunq 1 capsule by mouth once daily Cholecalciferol (Vitamin D3) 50 mcg (2,000 unit) capsule Active 50 MCG PO Daily June 05, 2023 12:00amCo Enzyme Q-10 (18 sources)Co Enzyme Q-10 Actived-mannose 500 mg capsule (1 source)take 1 capsule by mouth once as neededd-mannose 500 mg capsule Take by mouth. PRN ActiveDigestive Health Probiotic - (18 sources)Digestive Health Probiotic - as directed Orally Activedorzolamide 20 mg/ml / timolol 5 mg/ml ophthalmic solution (1 source)Carbonic Anhydrase Inhibitor, beta-Adrenergic BlockerStart: 12-10-2023 take 1 drop(s) into the eye(s) twice dailyDorzolamide-Timolol 22.3-6.8 mg/mL drops Active 1 DROPS EYE-BOTH Twice daily December 10, 2023 1:00am Fiorinal/Codeine #3 53-759-00-30 MG (16 sources)Start: 49-82-3943wtke 1 capsule by mouth every four hours as needed Fiorinal/Codeine #3 61-188-36-30 MG 1 capsule Orally every 4 hrs prn for 5 days Dec, ActiveStart: 35-18-5220lwad 1 capsule by mouth every four hours as neededFiorinal/Codeine #3 80-485-77-30 MG 1 capsule Orally every 4 hrs prn prn Dec, ActiveStart: 41-83-7972qczt 1 capsule by mouth every four hours as neededFiorinal/Codeine #3 40-485-48-30 MG 1 capsule Orally every 4 hrs prn for 5 days prn Dec, ActiveStart: 98-94-6695dkpn 1 capsule by mouth every four hours as neededFiorinal/Codeine #3 66-756-04-30 MG 1 capsule Orally every 4 hrs prn Dec, ActiveStart: 99-09-9998knma 1 capsule by mouth every four hours as neededFiorinal/Codeine #3 86-435-96-30 MG 1 capsule Orally every 4 hrs prn for 5 days Dec, ActiveMultivitamin preparation (6 sources)Multivitamin ActiveMultivitamin tablet (1 source)Start: 06-49-7095xpxr 1 tablet by mouth once dailyMultivitamin tablet Active 1 TAB PO Daily June 05, 2023 12:42zedqmxirevajjn-Kq-sqji-minerals tablet (1 source)take 1 tablet by mouth in the macmcmtmkuvzlelktrs-Ls-mndc-minerals tablet Take 1 tablet by mouth in the morning. Activeomega 3 (1 source)Start: 24-64-4813rzrar 3 Active PO December 10, 2023 1:00amomega-3 acid ethyl esters (mcfp) 1000 mg oral capsule (1 source)take 1 capsule by mouth at bedtimeomega-3 acid ethyl esters (LOVAZA) 1 gram capsule Take 2 capsules (2 g total) by mouth in the morning and 2 capsules (2 g total) before bedtime. ActiveTurmeric extract (12 sources)Start: 15-12-9700Nvjbyika 400 mg capsule Active 400 MG PO June 05, 2023 12:00amTurmeric Activeubidecarenone 100 mg oral capsule (2 sources)Start: 12-44-0632Kpcatdrt Q10 (Co Q-10) 100 mg capsule Active 100 MG PO Daily June 05, 2023 12:00amtake 10 capsules by mouth three times daily coenzyme Q10 30 mg capsule Take 100 mg by mouth 3 (three) times a day. Active vitamin B12 (12 sources)Vitamin C77Uyylgvj B 12 ActiveVitamin C 250 MG (3 sources)take 1 tablet by mouth once dailyVitamin C 250 MG 1 tablet Orally Once a day for 30 day(s) ActiveVitamin D (18 sources)Vitamin D Active Completed/Discontinued Medications MedicationDrug Class(es)DatesSig (Normalized)Sig (Original)ALPRAZolam 0.25 mg oral tablet (19 sources)BenzodiazepineStart: 06-05-2023 End: 98-86-4954Qpauptrrvn (Xanax) 0.25 mg tablet Discontinued 0.25 MG PO .q8-12 h as needed June 05, 2023 12:00am June 05, 2023 1:40pmStart: 05-18-2017 Xanax 0.25 MG 1 tablet Orally q8-12 hrs prn prn May, Activeamoxicillin 875 mg / clavulanate 125 mg oral tablet (2 sources)Penicillin-class AntibacterialStart: 11-82-9526lisw 1 tablet by mouth twice daily at mealtimeAmoxicillin-Pot Clavulanate 875-125 MG 1 tablet Orally bid with food for 7 days Sep, Not-TakingApple Cider Vinegar (12 sources)Start: 06-05-2023 End: 84-95-8047drelv cider vinegar Discontinued PO Daily June 05, 2023 12:00am June 05, 2023 1:28pmApple Cider Vinegar Activeascorbic acid 250 mg chewable tablet (4 sources)Vitamin Ctake 1 tablet by mouth every twenty-four hoursVitamin C 250 MG 1 tablet Orally Once a day for 30 day(s) Uwm-ZovgxbR-vvwxvng with vitamin C tablet (1 source) End: 58-26-2293bjoy 1 tablet by mouth in the morningB-complex with vitamin C tablet Take 1 tablet by mouth in the morning. 06/18/2023 Discontinuedbrimonidine tartrate 2 mg/ml ophthalmic solution (1 source)alpha-Adrenergic Agonist End: 20-90-3599qeli 1 drop(s) into the eye(s) three times dailybrimonidine (ALPHAGAN) 0.2 % ophthalmic solution Administer 1 drop into the left eye 3 (three) times a day. 06/18/2023 Discontinuedbrimonidine tartrate 2 mg/ml / timolol 5 mg/ml ophthalmic solution (1 source)alpha-Adrenergic Agonist, beta-Adrenergic Aileen End: 77-01-7636tilu 1 drop(s) into the eye(s) oncebrimonidine-timoloL (COMBIGAN) 0.2-0.5 % ophthalmic solution 1 drop every 12 (twelve) hours. 06/18/2023 Discontinuedcefdinir 300 mg oral capsule (2 sources)Cephalosporin AntibacterialStart: 07-47-9343rujf 2 capsules by mouth once daily at mealtimeCefdinir 300 MG 2 capsules Orally qd with food for 7 days Dec, Klu-HhnrxdIoymfwd-Ucxrcwssgu-Asa-Caff 22-85-406-40 mg capsule (2 sources)Start: 06-05-2023 End: 14-62-0980qcse 1 capsule by mouth every four hours as needed for headache Pjtspot-Glundcypxu-Sjv-Caff 18-14-977-40 mg capsule Discontinued 1 CAP PO Every 4 hours as needed for tension headache 30 5 June 05, 2023 2:08pm June 06, 2023 10:36amStart: 06-05-2023 End: 94-53-3018xbty 1 capsule by mouth every four hours as needed Skcpsxw-Jzslhgaevk-Yjd-Caff 85-77-868-40 mg capsule Discontinued 1 CAP PO Every 4 hours as needed June 05, 2023 12:00am June 05, 2023 2:09pm diphenhydrAMINE hydrochloride 25 mg oral tablet (2 sources)Histamine-1 Receptor AntagonistStart: 22-23-3419lcym 1 tablet by mouth every twenty-four hoursdiphenhydrAMINE HCl 25 MG 1 tablet at bedtime as needed Orally Once a day Nov, Not-TakingElderberry preparation (7 sources)Elderberry 575 MG/5ML 5 ml Orally Not-TakingElderberry 575 MG/5ML 5 ml Orally Activefamciclovir 500 mg oral tablet (19 sources)Herpes Simplex Virus Nucleoside Analog DNA Polymerase Inhibitor Start: 06-05-2023 End: 86-84-7493dvmx 1 tablet by mouth three times daily as neededFamciclovir 500 mg tablet Discontinued 500 MG PO Three times daily as needed June 05, 2023 12:00am March 07, 2024 11:48amStart: 35-33-9617ijff 1 tablet by mouth every eight hoursFamciclovir 500 MG 1 tablet Orally tid for 10 days prn Nov, Activefluticasone propionate 0.05 mg/actuat metered dose nasal spray (1 source)Corticosteroid End: 59-87-7451nees 1 spray(s) nasal route in the morningfluticasone propionate (FLONASE) 50 mcg/actuation nasal spray Administer 1 spray into each nostril in the morning. 06/18/2023 Discontinuedibuprofen 200 mg oral tablet (19 sources)Nonsteroidal Anti-inflammatory DrugStart: 06-05-2023 End: 81-42-9652xumx 1 tablet by mouth three times daily as neededIbuprofen 200 mg tablet Discontinued 200 MG PO Three times daily as needed June 05, 2023 12:00amApril 2023 1:53pmtake 1 tablet by mouth three times daily at mealtime as neededIbuprofen 200 MG 1 tablet with food or milk as needed Orally Three times a day prn ActiveKetorolac (15 sources)Nonsteroidal Anti-inflammatory Drug, Cyclooxygenase InhibitorStart: 20-25-5881Iixoqmf per 15 mg Oct, 60 mgL. Acidophilus-L. Rhamnosus (Digestive Health Probiotic) 10 billion cell capsule (1 source)Start: 06-05-2023 End: 26-82-8887dmsu 1 capsule by mouth once dailyL. Acidophilus-L. Rhamnosus (Digestive Health Probiotic) 10 billion cell capsule Discontinued 1 CAPPO Daily June 05, 2023 12:00am June 05, 2023 1:30pmlactobacillus acidophilus [id number] unt / pectin 100 mg oral tablet (1 source) End: 65-48-3659pohuijyvtkk-pectin, citrus 25 million cell -100 mg tablet Take by mouth 3 (three) times a day with meals. 06/18/2023 Discontinuedlansoprazole 30 mg delayed release oral capsule (9 sources)Proton Pump InhibitorStart: 94-86-2321gmxh 1 capsule by mouth every twenty-four hoursPrevacid 30 MG 1 capsule before a meal Orally Once a day for 30 day(s) May, Not-TakingMagnesium (19 sources) End: 49-41-4411scnk 2 tablets by mouth in the morningmagnesium 250 mg tablet Take 2 tablets (500 mg total) by mouth in the morning. 06/18/2023 Discontinued Magnesium 400 MG as directed Orally Activemagnesium oxide 400 mg oral tablet (2 sources)Start: 06-05-2023 End: 72-13-1575xwpo 1 tablet by mouth once dailyMagnesium Oxide 400 mg (241.3 mg magnesium) tablet Discontinued 400 MG PO Daily June 05, 2023 9:28am June 05, 2023 1:30pmOmega 3 1000 MG (2 sources)take 1 capsule by mouth once dailyOmega 3 1000 MG 1 capsule Orally Once a day Not-Taking Problems Active Problems Problem ClassificationProblemDateDocumented DateEpisodic/ChronicAcute and chronic tonsillitis (20 sources)Amygdalolith; Translations: [Other chronic diseases of tonsils and adenoids]Onset: 07-07-2021 Resolved: 01-77-9108DygdpkuXozlyky disorders (20 sources)Anxiety; Translations: [Anxiety disorder, unspecified]Onset: 11-16-2020 Resolved: 64-88-4533ZaekdnhQbitehr dysrhythmias (3 sources)Palpitations; Translations: [Tachycardia, unspecified]Onset: 11-16-2020 Resolved: 41-35-1543JlvniwpxNngkktld mellitus without complication (6 sources)Hyperglycemia, unspecified; Translations: [Hyperglycemia]Onset: 11-16-2020 Resolved: 15-01-2016UqgwjbrmHhazonxbj of lipid metabolism (20 sources)Hyperlipidemia; Translations: [Hyperlipidemia, unspecified]Onset: 11-16-2020 Resolved: 75-17-0436YhhkmitZnmsnwamtgkme symptoms and ill-defined conditions (6 sources)Nocturia; Translations: [Hematuria, unspecified]Onset: 01-14-2020 Resolved: 76-54-0896KimfpulsZtelhsru; including migraine (20 sources)Migraine; Translations: [Migraine, unspecified, not intractable, without status migrainosus]Onset: 05-18-2021 Resolved: 44-21-9953OwkewtxGrgqpsg and fatigue (4 sources)Other fatigue; Translations: [Fatigue]Onset: 11-16-2020 Resolved: 53-18-7679FlstpubuLzyemffdn of unspecified nature or uncertain behavior (18 sources)Thrombocytosis; Translations: [Essential (hemorrhagic) thrombocythemia]ChronicOther aftercare (4 sources)Other intermodal customer service (current) drug therapy; Translations: [Other intermodal customer service (current) drug therapy Z79.899]Onset: 11-16-2020 Resolved: 83-95-8693IipnwxgkPusao aftercare (1 source)Patient encounter status; Translations: [Other longterm (current) drug therapy]36-48-9658KldiskuyVvled connective tissue disease (1 source)Pain in leg, unspecifiedEpisodicOther diseases of bladder and urethra (18 sources)Disorder of bladder; Translations: [Other specified disorders of bladder]ChronicOther ear and sense organ disorders (1 source)Bilateral tinnitus; Translations: [Tinnitus, bilateral]06-05-2023 EpisodicOther ear and sense organ disorders (1 source)Tinnitus, bilateral; Translations: [Tinnitus, unspecified]06-10-2024 EpisodicOther nutritional; endocrine; and metabolic disorders (4 sources)Abnormal weight gain; Translations: [Abnormal weight gain]Onset: 11-16-2020 Resolved: 05-18-1694BovqcakkMblvz nutritional; endocrine; and metabolic disorders (1 source)Abnormal weight loss; Translations: [ABNORMAL WEIGHT LOSS]Onset: 31-50-9354BmredzctOalth nutritional; endocrine; and metabolic disorders (1 source)Weight increased; Translations: [Abnormal weight gain]06-10-2024 EpisodicOther screening for suspected conditions (not mental disorders or infectious disease) (3 sources)Encounter for screening mammogram for malignant neoplasm of breast; Translations: [Abnormal blood-gas level]Onset: 11-16-2020 Resolved: 04-88-3720UpiheyalBzykh upper respiratory infections (18 sources)Sinusitis; Translations: [Chronic sinusitis, unspecified]Chronic Otitis media and related conditions (3 sources)Other specified disorders of Eustachian tube, right ear; Translations: [Otitis media, unspecified, unspecified ear]EpisodicResidual codes; unclassified (13 sources)Sleep apnea; Translations: [Sleep apnea, unspecified]ChronicResidual codes; unclassified (13 sources)Daytime somnolence; Translations: [Other hypersomnia]ChronicResidual codes; unclassified (1 source)Sleep apnea, unspecifiedOnset: 07-07-2021 Resolved: 91-21-4123JcqnkemOeowxnjz codes; unclassified (1 source)Other hypersomniaOnset: 07-07-2021 Resolved: 24-74-8444AviglucPizuuepi codes; unclassified (19 sources)Insomnia; Translations: [Insomnia, unspecified]21-62-6987Pcxudfbj Residual codes; unclassified (1 source)Other specified health statusEpisodicResidual codes; unclassified (1 source)Insomnia, unspecifiedEpisodicViral infection (4 sources)Herpesviral vesicular dermatitis; Translations: [Cold sore B00.1] Onset: 11-16-2020 Resolved: 65-11-0582Mexmfqwu Past or Other Problems Problem ClassificationProblemDateDocumented DateEpisodic/ChronicHeadache; including migraine (1 source)Headache; Translations: [Cephalgia R51]Onset: 11-16-2020 Resolved: 41-98-4813GothhwygNazsk gastrointestinal disorders (1 source)HeartburnOnset: 05-18-2021 Resolved: 01-74-7061RfdoyycoLshuo inflammatory condition of skin (1 source)Lichen simplex chronicusOnset: 05-18-2021 Resolved: 52-48-3808TmvlgdttMnzhn lower respiratory disease (2 sources)Snoring; Translations: [Snoring R06.83]Onset: 11-16-2020 Resolved: 60-29-2200TberhzatRycjh lower respiratory disease (2 sources)Apnea, not elsewhere classified; Translations: [Apnea R06.81]Onset: 11-16-2020 Resolved: 68-77-3682WbxrhnhpIvutg upper respiratory infections (1 source)Acute sinusitis, unspecifiedOnset: 01-12-2022 Resolved: 95-73-8985FnabpydpLoqkahiw codes; unclassified (1 source)Body mass index (BMI) 22.0-22.9, adultOnset: 08-02-2021 Resolved: 43-04-7898SseztmjrLcamubvz codes; unclassified (1 source)Body mass index (BMI) 23.0-23.9, adultOnset: 07-07-2021 Resolved: 16-86-0125Eawhweml Results Test NameValueInterpretationReference RangeFacilityBasophils Auto (Bld) [#/Vol] on 20-83-4116Gqafivrpc (Bld) [#/Vol]Automated basophil count0.0-0.1FAultman Alliance Community HospitalBasophils/100 WBC Auto (Bld)on 20-29-5346Ighfwwgll/100 WBC (Bld)Automated basophil %0.2-2.0[facility] HospitalCholesterol in LDL Calc [Mass/Vol]on 16-95-1882Pkxlnniuglm in LDL [Mass/Vol]Cholesterol in LDL [Mass/volume] in Serum or Plasma by calculationHolzer HospitalComment on above:<100 mg/dl LVVTQFZ024-576 mg/dl NEAR OR ABOVE XKPYBDZ245- 159 mg/dl BORDERLINE ICMT853-230 mg/dl HIGH>190 mg/dl VERY HIGHCholesterol in VLDL Calc [Mass/Vol]on 94-43-8764Cmkrzjnchij in VLDL [Mass/Vol]Cholesterol in VLDL [Mass/volume] in Serum or Plasma by calculationHolzer HospitalEosinophils/100 WBC Auto (Bld)on 70-12-2791Mcxcxbfsdkn/100 WBC (Bld) Automated eosinophil %0.9-7.0Hol[facility] HospitalErythrocyte distribution width Auto (RBC) [Ratio]on 71-07-9284Rgekotorulw distribution width (RBC) [Ratio]Erythrocyte distribution width [Ratio] by Automated count11.0-15.0 [facility] HospitalEstimated glomerular filtration rate (GFR) non- Americanon 61-18-4584ROT/1.73 sq M.predicted among non-blacks MDRD (S/P/Bld) [Vol rate/Area]Estimated glomerular filtration rate (GFR) non->=60 mL/min/1.73m 2FAultman Alliance Community HospitalGlobulin Calc (S) [Mass/Vol]on 76-76-0545Jqmgbbep (S) [Mass/Vol]Serum globulin measurement by calculation (mass/volume)[facility] HospitalGlucose mean value [Mass/volume] in Blood Estimated from glycated hemoglobinon 14-22-2172Odghbgw glucose Estimated from glycated hemoglobin (Bld) [Mass/Vol]Glucose mean value [Mass/volume] in Blood Estimated from glycated hemoglobinHolzer HospitalHematocrit Auto (Bld) [Volume fraction]on 02-40-7563Zcmokantlx (Bld) [Volume fraction]Hematocrit [Volume Fraction] of Blood by Automated count 36.0-48.0Hol[facility] HospitalHemoglobin A1c percentageon 06-06-2024 HbA1c (Bld) [Mass fraction]Hemoglobin A1c percentage4.5-6.2FAultman Alliance Community HospitalComment on above:ADA RECOMMENDED LIMIT 4.0 - 6.0ADA THERAPEUTIC TARGET < 7.0ACTION SUGGESTED> 7.0Hemoglobin [Mass/volume] in Bloodon 06-06-2024 Hemoglobin (Bld) [Mass/Vol]Hemoglobin [Mass/volume] in Blood12.0-16.0[facility] HospitalLaboratory - Chemistry and Chemistry - challengeon 45-16-4101Cxsdimg [Mass/Vol]3.5 g/dL3.4-5.0[facility] HospitalALP [Catalytic activity/Vol]72 U/F03-223BcmbvxdyeHolzer HospitalALT [Catalytic activity/Vol]33 U/C65-03KcopmiddbHolzer HospitalAST [Catalytic activity/Vol]16 U/E30-27JkfrnmwezHolzer HospitalBilirubin [Mass/Vol]0.4 mg/dL0.2-1.0[facility] HospitalCalcium [Mass/Vol]9.1 mg/dL8.5-10.1FAultman Alliance Community HospitalChloride [Moles/Vol]105 mmol/L 98-107Hol[facility] HospitalCholesterol [Mass/Vol]167 mg/dL<=200 [facility] HospitalCholesterol in HDL [Mass/Vol]67 mg/iAZnmm50-72 [facility] HospitalComment on above:> or =60 mg/dl - LOW CARDIOVASCULAR RISK<40 mg/dl - HIGH CARDIOVASCULAR RISKCO2 [Moles/Vol]30.5 mmol/L21.0-32.0[facility] HospitalCreatinine [Mass/Vol]0.79 mg/dL 0.55-1.02Hol[facility] HospitalGFR/1.73 sq M.predicted MDRD (S/P/Bld) [Vol rate/Area]mL/min/{1.73_m2}>=60 mL/min/1.73m 2FAultman Alliance Community HospitalGlucose [Mass/Vol]95 mg/hB66-990MrtrbeedpHolzer HospitalPotassium [Moles/Vol]4.1 mmol/L3.5-5.1FAultman Alliance Community HospitalProtein [Mass/Vol] 7.1 g/dL6.4-8.2FMarymount Hospitalodium [Moles/Vol]143 mmol/L 136-145Holzer HospitalTriglyceride [Mass/Vol]123 mg/dL<=150 [facility] HospitalTSH Qn1.913 m[IU]/L0.358-3.740Hol[facility] HospitalUrea nitrogen [Mass/Vol]14.0 mg/dL7.0-18.0[facility] HospitalUrea nitrogen/Creatinine [Mass ratio]17.7 mg/mgHolzer HospitalLaboratory - Hematology and Cell countson 06-06-2024 Immature granulocytes/100 WBC (Bld)0.4 %0.0-0.5FAultman Alliance [facility] Hospital Leukocytes [#/volume] corrected for nucleated erythrocytes in Blood by Automated counon 48-20-0590VZV corrected for nucl RBC Auto (Bld) [#/Vol]Leukocytes [#/volume] corrected for nucleated erythrocytes in Blood by Automated coun 4.0-11.0[facility] HospitalLymphocytes Auto (Bld) [#/Vol]on 05-53-0471Fdpclvokcpq (Bld) [#/Vol]Lymphocytes [#/volume] in Blood by Automated count1.2-3.8[facility] HospitalLymphocytes/100 WBC Auto (Bld)on 40-16-2445Ionakzbuwqi/100 WBC (Bld)Lymphocytes/100 leukocytes in Blood by Automated count20.5-60.0[facility] HospitalMCH Auto (RBC) [Entitic mass]on 29-55-2866MRZ (RBC) [Entitic mass]MCH [Entitic mass] by Automated count 26.7-34.0[facility] HospitalMCHC Auto (RBC) [Mass/Vol]on 47-32-3475XIXF (RBC) [Mass/Vol]MCHC [Mass/volume] by Automated count29.9-35.2 [facility] HospitalMCV Auto (RBC) [Entitic vol]on 24-72-3342FCO (RBC) [Entitic vol]MCV [Entitic volume] by Automated count81.0-99.0[facility] HospitalMonocytes Auto (Bld) [#/Vol]on 95-37-5010Qlkumdwok (Bld) [#/Vol]Automated blood monocyte count0.3-0.8[facility] Monocytes/100 WBC Auto (Bld)on 72-64-4378Xuhhbgfti/100 WBC (Bld)Automated monocyte %1.7-12.0[facility] HospitalNeutrophils Auto (Bld) [#/Vol]on 31-65-0687Nqedglouxwx (Bld) [#/Vol]Neutrophils [#/volume] in Blood by Automated count1.4-6.5FAultman Alliance Community HospitalNeutrophils/100 WBC Auto (Bld)on 18-02-1410Ripryrxonvb/100 WBC (Bld)Automated neutrophil %43.0-75.0 [facility] HospitalNo Panel Informationon 55-37-9102Idkoepulthg # (Auto)0.1 10 3/uL0.0-0.7FAultman Alliance Community HospitalImmature Granulocyte # (Auto)0.02 10 3/uL0.00-0.03Hol[facility] HospitalPlatelet mean volume Auto (Bld) [Entitic vol]on 06-15-2590Pgccdxaf mean volume (Bld) [Entitic vol] Platelet mean volume [Entitic volume] in Blood by Automated countLow9.5-13.5 [facility] HospitalPlatelets Auto (Bld) [#/Vol]on 06-06-2024 Platelets (Bld) [#/Vol]Platelets [#/volume] in Blood by Automated leshu039-151 [facility] HospitalRBC Auto (Bld) [#/Vol]on 01-66-7730IHA (Bld) [#/Vol]Erythrocytes [#/volume] in Blood by Automated count4.20-5.40WVUMedicine Harrison Community Hospitalerum or plasma albumin/globulin mass ratioon 06-06-2024 Albumin/Globulin [Mass ratio]Serum or plasma albumin/globulin mass ratio [facility] Hospitaler[facility] or plasma anion gap determinationon [id number] gap [Moles/Vol]Serum or plasma anion gap determinationWVUMedicine Harrison Community Hospitalerum or plasma total cholesterol/high density lipoprotein (HDL) cholesterol mass tae [id number].total/Cholesterol in HDL [Mass ratio]Serum or plasma total cholesterol/high density lipoprotein (HDL) cholesterol mass ratHolzer HospitalComment on above:3.3 - 4.4 LOW RISK4.4 - 7.1 AVERAGE RISK7.1 - 11.0 MODERATE RISK>11.0 HIGH RISKCBC AUTO DIFFon [id number] #0.0 103/ulNormal0.0-0.1[facility] Cross HospitalComment on above:Performed By: #### CBC #### [facility] [address] [address] [address] Kristy Jacobsonsophils/100 WBC (Bld)0.5 %Normal0.2-2.0The [facility] Comment on above:Performed By: #### CBC #### [facility] [address] [address] [address] Kristy Burks #0.2 103/ulNormal0.0-0.7The [facility] HospitalComment on above: Performed By: #### CBC #### [facility] [address] [address] [address] Kristy Parikhosinophils/100 WBC (Bld)4.2 %Normal0.9-7.0[facility] Comment on above:Performed By: #### CBC #### [facility] [address] [place] [address] Dr. Kristy Parikhrythrocyte distribution width (RBC) [Ratio]12.5 %Uawosp16.0-15.0 The [facility] HospitalComment on above:Performed By: #### CBC #### [facility] [address] [place] [address] Dr. Kristy HansenHematocrit (Bld) [Volume fraction]43.6 %Wtecwd73.0-48.0The [facility] HospitalComment on above:Performed By: #### CBC #### [facility] [address] [place] [address] Dr. Kristy HansenHemoglobin (Bld) [Mass/Vol]15.0 g/sIHyojmo44.0-16.0The [facility] HospitalComment on above:Performed By: #### CBC #### [facility] [address] [place] [address] Dr. Kristy Taveras #0.01 10e3/ulNormal0.00-0.03The [facility] HospitalComment on above:Performed By: #### CBC #### [facility] [address] [place] [address] Dr. Kristy Taveras %0.2 %Normal0.0-0.5The [facility] HospitalComment on above: Performed By: #### CBC #### [facility] [address] [place] [address] Dr. Kristy KhanH #2.0 103/ulNormal1.2-3.8The [facility] HospitalComment on above:Performed By: #### CBC #### [facility] [address] [place] [address] Dr. Kristy Hurtadomphocytes/100 WBC (Bld)36.3 %Tvpofn68.5-60.0The [facility] HospitalComment on above:Performed By: #### CBC #### [facility] [address] [place] [address] Dr. Kristy ZamarripaUAL DIFF REQNONormalThe [facility] HospitalComment on above: Performed By: #### CBC #### [facility] [address] [place] [address] Dr. Kristy Leung (RBC) [Entitic mass]31.7 ptFdsgzh22.7-34.0The [facility] HospitalComment on above:Performed By: #### CBC #### [facility] [address] [place] [address] Dr. Kristy Leung (RBC) [Mass/Vol]34.4 g/kMNnozvu40.9-35.2The [facility] HospitalComment on above:Performed By: #### CBC #### [facility] [address] [place] [address] Dr. Kristy Leung (RBC) [Entitic vol]92.2 aWFbthfl13.0-99.0The [facility] HospitalComment on above:Performed By: #### CBC #### [facility] [address] [place] [address] Dr. Kristy Lehman #0.4 103/ulNormal0.3-0.8The [facility] HospitalComment on above:Performed By: #### CBC #### [facility] [address] [place] [address] Dr. Kristy Haqueocytes/100 WBC (Bld)6.5 %Normal1.7-12.0The [facility] Comment on above:Performed By: #### CBC #### [facility] [address] [place] [address] Dr. Kristy Goff #2.9 103/ulNormal1.4-6.5The [facility] HospitalComment on above:Performed By: #### CBC #### [facility] [address] [place] [address] Dr. Kristy Headleyutrophils/100 WBC (Bld)52.3 %Kzdqvr62.0-75.0The [facility] HospitalComment on above:Performed By: #### CBC #### [facility] [address] [place] [address] Dr. Kristy Chapmanlet mean volume (Bld) [Entitic vol]7.9 fLCritically low 9.5-13.5The [facility] HospitalComment on above:Performed By: #### CBC #### [facility] [address] [place] [address] Dr. Kristy HansenPLT310 103/hfMomivz408-589Ofr [facility] HospitalComment on above: Performed By: #### CBC #### [facility] [address] [place] [address] Dr. Kristy HansenRBC4.73 106/ulNormal4.20-5.40The [facility] HospitalComment on above:Performed By: #### CBC #### [facility] [address] [place] [address] Dr. Kristy HansenWBC5.5 103/ulNormal4.0-11.0The [facility] HospitalComment on above: Performed By: #### CBC #### [facility] [address] [place] [address] Dr. Kristy HansenGLYCOHEMOGLOBIN A1Con [id number] RECOMMENDATIONSEE BELOWMount St. Mary HospitalComment on above:Result Comment: ADA RECOMMENDED LIMIT 4.0 - 6.0 ADA THERAPEUTIC TARGET < 7.0 ACTION SUGGESTED > 7.0Performed By: #### A1C #### [facility] [address] [place] [address] Dr. Kristy HansenGlucose [Mass/Vol]105 mg/dLNoProMedica Memorial HospitalCommclaren port [facility] hospital on above:Performed By: #### A1C #### [facility] [address] [place] [address] Dr. Kristy HansenHbA1c (Bld) [Mass fraction]5.3 %Normal4.5-6.2The [facility] HospitalCommclaren port [facility]on hospital on above:Performed By: #### A1C #### [facility] [address] [place] [address] Dr. Kristy HansenLIPID PROFILEon [id number]-HDL RATIO NORMSEE BELOWGrant HospitalCommclaren port [facility]on hospital on above:Result Comment: 3.3 - 4.4 LOW RISK 4.4 - 7.1 AVERAGE RISK 7.1 - 11.0 MODERATE RISK >11.0 HIGH RISKPerformed By: #### LIPID, CMP, TSH #### [facility] [address] [place] [address] Dr. Kristy HansenCholesterol [Mass/Vol]193 mg/dLNormal<=200The [facility] Comment on above:Performed By: #### LIPID, CMP, TSH #### [facility] [address] [place] [address] Dr. Kristy HansenCholesterol in HDL [Mass/Vol]75 mg/dLCritically grwx50-43Mmh [facility] HospitalComment on above:Performed By: #### LIPID, CMP, TSH #### [facility] [address] [place] [address] Dr. Kristy HansenCholesterol in LDL [Mass/Vol]107.2 mg/dLNoProMedica Memorial HospitalComment on above:Performed By: #### LIPID, CMP, TSH #### [facility] [address] [place] [address] Dr. Kristy Cardonaesterantoine.total/Cholesterol in HDL [Mass ratio]2.6 {ratio} NormalThe [facility] HospitalComment on above:Performed By: #### LIPID, CMP, TSH #### [facility] [address] [place] [address] Dr. Kristy HasnenHDL NORMAL> or = 60 mg/dl - LOW CARDIOVASCULAR RISK <40 mg/dl - HIGH CARDIOVASCULAR RISKGrant HospitalComment on above:Performed By: #### LIPID, CMP, TSH #### [facility] [address] [place] [address] Dr. Kristy HansenLDL CALC NORMALSEE BELOWGrant HospitalComment on above:Result Comment: <100 mg/dl OPTIMAL 100 - 129 mg/dl NEAR OR ABOVE OPTIMAL 130 - 159 mg/dl BORDERLINE HIGH 160 - 189 mg/dl HIGH >190 mg/dl VERY HIGH Performed By: #### LIPID, CMP, TSH #### [facility] [address] [place] [address] Dr. Kristy HansenTriglyceride [Mass/Vol]54 mg/dLNormal<=150The [facility] Comment on above:Performed By: #### LIPID, CMP, TSH #### [facility] [address] [address] [address] Kristy GarciaLDL CALC10.8 mg/dLNormalThe [facility] HospitalComment on above: Performed By: #### LIPID, CMP, TSH #### [facility] [address] [address] [address] Kristy Garcia 14(COMP METB)on [id number] [Mass/Vol]3.7 g/dLNormal 3.4-5.0The [facility] HospitalComment on above:Performed By: #### LIPID, CMP, TSH #### [facility] [address] [place] [address] Dr. Kristy HansenAlbumin/Globulin [Mass ratio]0.9 {ratio}NormalThe [facility] HospitalComment on above:Performed By: #### LIPID, CMP, TSH #### [facility] [address] [place] [address] Dr. Kristy Mae [Catalytic activity/Vol]82 U/MUmgwvk40-011Nah [facility] HospitalComment on above:Performed By: #### LIPID, CMP, TSH #### [facility] [address] [place] [address] Dr. Kristy Odom [Catalytic activity/Vol]41 U/DTmkimv29-22Oew [facility] HospitalComment on above:Performed By: #### LIPID, CMP, TSH #### [facility] [address] [place] [address] Dr. Kristy Lam gap [Moles/Vol]12.2 mmol/LNormalThe [facility] Comment on above:Performed By: #### LIPID, CMP, TSH #### [facility] [address] [place] [address] Dr. Kristy De [Catalytic activity/Vol]23 U/BPpvufr86-36Ppd [facility] HospitalComment on above:Performed By: #### LIPID, CMP, TSH #### [facility] [address] [place] [address] Dr. Kristy HansenBilirubin [Mass/Vol]0.4 mg/dLNormal0.2-1.0The [facility] Comment on above:Performed By: #### LIPID, CMP, TSH #### [facility] [address] [address] [address] Kristy HansenCalcium [Mass/Vol]9.5 mg/dLNormal8.5-10.1The [facility] Comment on above:Performed By: #### LIPID, CMP, TSH #### [facility] [address] [address] [address] Kristy HansenChloride [Moles/Vol]104 mmol/SRznbqr67-580Aqw [facility] Comment on above:Performed By: #### LIPID, CMP, TSH #### [facility] [address] [address] [address] Kristy HansenCO2 [Moles/Vol]28.9 mmol/OOmzkdh66.0-32.0The [facility] Comment on above:Performed By: #### LIPID, CMP, TSH #### [facility] [address] [address] [address] Kristy HansenCreatinine [Mass/Vol]0.69 mg/dLNormal0.55-1.02The [facility] HospitalComment on above:Performed By: #### LIPID, CMP, TSH #### [facility] [address] [address] [address] Kristy ParikhGFR-AF ERITREAN>60Normal>=60The [facility] HospitalComment on above:Performed By: #### LIPID, CMP, TSH #### [facility] [address] [address] [address] Kristy ParikhGFR-NON AF ERITREAN>60Normal>=60The [facility] HospitalComment on above:Performed By: #### LIPID, CMP, TSH #### [facility] [address] [address] [address] Kristy HansenGlobulin (S) [Mass/Vol]3.9 g/dLNormalThe [facility] HospitalComment on above:Performed By: #### LIPID, CMP, TSH #### [facility] [address] [address] [address] Kristy HansenGlucose [Mass/Vol]83 mg/fTXotgqs39-728Dmo [facility] Comment on above:Performed By: #### LIPID, CMP, TSH #### [facility] [address] [address] [address] Kristy HansenPotassium [Moles/Vol]4.1 mmol/LNormal3.5-5.1The [facility] Comment on above:Performed By: #### LIPID, CMP, TSH #### [facility] [address] [place] [address] Dr. Kristy HansenProtein [Mass/Vol]7.6 g/dLNormal6.4-8.2The [facility] Comment on above:Performed By: #### LIPID, CMP, TSH #### [facility] [address] [place] [address] Dr. Kristy HansenSodium [Moles/Vol]141 mmol/QAqxrfw159-167Yhq [facility] Comment on above:Performed By: #### LIPID, CMP, TSH #### [facility] [address] [place] [address] Dr. Kristy HansenUrea nitrogen [Mass/Vol]8.0 mg/dLNormal7.0-18.0The [facility] HospitalComment on above:Performed By: #### LIPID, CMP, TSH #### [facility] [address] [address] [address] Kristy Lindsay nitrogen/Creatinine [Mass ratio]11.6 mg/mgNormalThe [facility] HospitalComment on above:Performed By: #### LIPID, CMP, TSH #### [facility] [address] [place] [address] Dr. Kristy Bella 00-19-5134FNG9.896 uIU/mLNormal0.358-3.740[facility] Cross HospitalComment on above:Performed By: #### LIPID, CMP, TSH #### [facility] [address] [place] [address] Dr. Kristy Abdi AUTO DIFFon [id number] #0.0 103/ulNormal0.0-0.1The [facility] HospitalComment on above:Performed By: #### CBC #### [facility] [address] [address] [address] Kristy HansenBasophils/100 WBC (Bld)0.8 %Normal0.2-2.0The [facility] Comment on above:Performed By: #### CBC #### [facility] [address] [address] [address] Kristy Burks #0.1 103/ulNormal0.0-0.7The [facility] HospitalComment on above: Performed By: #### CBC #### [facility] [address] [place] [address] Dr. Kristy Parikhosinophils/100 WBC (Bld)2.5 %Normal0.9-7.0The [facility] Comment on above:Performed By: #### CBC #### [facility] [address] [place] [address] Dr. Kristy Parikhrythrocyte distribution width (RBC) [Ratio]12.4 %Reydjz12.0-15.0 The [facility] HospitalComment on above:Performed By: #### CBC #### [facility] [address] [place] [address] Dr. Kristy HansenHematocrit (Bld) [Volume fraction]41.3 %Kajtjk60.0-48.0The [facility] HospitalComment on above:Performed By: #### CBC #### [facility] [address] [place] [address] Dr. Kristy HansenHemoglobin (Bld) [Mass/Vol]13.8 g/mVSahxxo51.0-16.0The [facility] HospitalComment on above:Performed By: #### CBC #### [facility] [address] [place] [address] Dr. Kristy Taveras #0.01 10e3/ulNormal0.00-0.03The [facility] HospitalComment on above:Performed By: #### CBC #### [facility] [address] [address] [address] Kristy Taveras %0.2 %Normal0.0-0.5The [facility] on above: Performed By: #### CBC #### [facility] [address] [address] [address] Kristy Perkins #2.0 103/ulNormal1.2-3.8The [facility] HospitalComment on above:Performed By: #### CBC #### [facility] [address] [place] [address] Dr. Kristy Khanhocytes/100 WBC (Bld)40.3 %Viymxr77.5-60.0The [facility] on above:Performed By: #### CBC #### [facility] [address] [place] [address] Dr. Kristy ZamarripaUAL DIFF REQNONormalThe [facility] HospitalComment on above: Performed By: #### CBC #### [facility] [address] [place] [address] Dr. Kristy Leung (RBC) [Entitic mass]31.6 oeBgpwee79.7-34.0The [facility] on above:Performed By: #### CBC #### [facility] [address] [place] [address] Dr. Kristy Leung (RBC) [Mass/Vol]33.4 g/aHCwkiaz00.9-35.2The [facility] on above:Performed By: #### CBC #### [facility] [address] [place] [address] Dr. Kristy Leung (RBC) [Entitic vol]94.5 hVUrknhz96.0-99.0The [facility] on above:Performed By: #### CBC #### [facility] [address] [place] [address] Dr. Kristy Lehman #0.4 103/ulNormal0.3-0.8The [facility] on above:Performed By: #### CBC #### [facility] [address] [address] [address] Kristy Haqueocytes/100 WBC (Bld)8.5 %Normal1.7-12.0The [facility] Comment on above:Performed By: #### CBC #### [facility] [address] [place] [address] Dr. Kristy HeadleyUT #2.3 103/ulNormal1.4-6.5The [facility] HospitalComment on above:Performed By: #### CBC #### [facility] [address] [place] [address] Dr. Kristy Headleyutrophils/100 WBC (Bld)47.7 %Msqscl11.0-75.0The [facility] HospitalComment on above:Performed By: #### CBC #### [facility] [address] [place] [address] Dr. Kristy HansenPlatelet mean volume (Bld) [Entitic vol]8.3 fLCritically low 9.5-13.5The [facility] HospitalComment on above:Performed By: #### CBC #### [facility] [address] [place] [address] Dr. Kristy HansenPLT312 103/ihIvrxrk005-426Fnf [facility] HospitalComment on above: Performed By: #### CBC #### [facility] [address] [place] [address] Dr. Kristy HansenRBC4.37 106/ulNormal4.20-5.40The [facility] HospitalComment on above:Performed By: #### CBC #### [facility] [address] [place] [address] Dr. Kristy HansenWBC4.8 103/ulNormal4.0-11.0The [facility] HospitalComment on above: Performed By: #### CBC #### [facility] [address] [place] [address] Dr. Kristy HansenGLYCOHEMOGLOBIN A1Con [id number] RECOMMENDATIONSEE BELOWNormal The [facility] HospitalComment on above:Result Comment: ADA RECOMMENDED LIMIT 4.0 - 6.0 ADA THERAPEUTIC TARGET < 7.0 ACTION SUGGESTED > 7.0Performed By: #### A1C #### [facility] [address] [place] [address] Dr. Kristy HansenGlucose [Mass/Vol]100 mg/dLNoProMedica Memorial HospitalComment on above:Performed By: #### A1C #### [facility] [address] [place] [address] Dr. Kristy HansenHbA1c (Bld) [Mass fraction]5.1 %Normal4.5-6.2[facility] HospitalComment on above:Performed By: #### A1C #### [facility] [address] [place] [address] Dr. Kristy LutzID PROFILEon [id number]-HDL RATIO NORMSEE BELOWGrant HospitalComment on above:Result Comment: 3.3 - 4.4 LOW RISK 4.4 - 7.1 AVERAGE RISK 7.1 - 11.0 MODERATE RISK >11.0 HIGH RISKPerformed By: #### CMP, LIPID #### [facility] [address] [place] [address] Dr. Kristy Cardonaesterol [Mass/Vol]146 mg/dLNormal<=200The [facility] Comment on above:Performed By: #### CMP, LIPID #### [facility] [address] [place] [address] Dr. Kristy HansenCholesterol in HDL [Mass/Vol]65 mg/dLCritically mnuj39-74Syp [facility] on above:Performed By: #### CMP, LIPID #### [facility] [address] [place] [address] Dr. Kristy HansenCholesterol in LDL [Mass/Vol]70.4 mg/dLGrant HospitalComment on above:Performed By: #### CMP, LIPID #### [facility] [address] [place] [address] Dr. Kristy HansenCholesterol.total/Cholesterol in HDL [Mass ratio]2.2 {ratio} NormalThe [facility] HospitalComment on above:Performed By: #### CMP, LIPID #### [facility] [address] [address] [address] Kristy Soto NORMAL> or = 60 mg/dl - LOW CARDIOVASCULAR RISK <40 mg/dl - HIGH CARDIOVASCULAR RISKGrant HospitalCommclaren [facility] hospital on above:Performed By: #### CMP, LIPID #### [facility] [address] [address] [address] Kristy HansenLDL CALC NORMALSEE BELOWNoProMedica Memorial HospitalComment on above:Result Comment: <100 mg/dl OPTIMAL 100 - 129 mg/dl NEAR OR ABOVE OPTIMAL 130 - 159 mg/dl BORDERLINE HIGH 160 - 189 mg/dl HIGH >190 mg/dl VERY HIGH Performed By: #### CMP, LIPID #### [facility] [address] [place] [address] Dr. Kristy HansenTriglyceride [Mass/Vol]53 mg/dLNormal<=150The [facility] Comment on above:Performed By: #### CMP, LIPID #### [facility] [address] [place] [address] Dr. Kristy HansenVLDL CALC10.6 mg/dLNoProMedica Memorial HospitalCommclaren port [facility] hospital on above: Performed By: #### CMP, LIPID #### [facility] [address] [address] [address] Kristy HansenPROF 14(COMP METB)on [id number] [Mass/Vol]3.6 g/dLNormal 3.4-5.0[facility] HospitalComment on above:Performed By: #### CMP, LIPID #### [facility] [address] [place] [address] Dr. Kristy HansenAlbumin/Globulin [Mass ratio]1.1 {ratio}NormalThe [facility] HospitalCommclaren port [facility] hospital on above:Performed By: #### CMP, LIPID #### [facility] [address] [place] [address] Dr. Kristy GamaP [Catalytic activity/Vol]66 U/KWgfayb70-860Tkz [facility] on above:Performed By: #### CMP, LIPID #### [facility] [address] [address] [address] Kristy GamaT [Catalytic activity/Vol]27 U/KBkhdxn45-36Frp [facility] HospitalComment on above:Performed By: #### CMP, LIPID #### [facility] [address] [address] [address] Kristy HansenAnion gap [Moles/Vol]9.1 mmol/LNormalThe [facility] HospitalComment on above:Performed By: #### CMP, LIPID #### [facility] [address] [address] [address] Kristy HansenAST [Catalytic activity/Vol]15 U/OZzkcbw20-67Tbs [facility] HospitalComment on above:Performed By: #### CMP, LIPID #### [facility] [address] [place] [address] Dr. Kristy HansenBilirubin [Mass/Vol]0.5 mg/dLNormal0.2-1.0The [facility] Comment on above:Performed By: #### CMP, LIPID #### [facility] [address] [address] [address] Kristy HansenCalcium [Mass/Vol]9.1 mg/dLNormal8.5-10.1The [facility] Comment on above:Performed By: #### CMP, LIPID #### [facility] [address] [address] [address] Kristy HansenChloride [Moles/Vol]107 mmol/IGlbavx88-153Qal [facility] Comment on above:Performed By: #### CMP, LIPID #### [facility] [address] [address] [address] Kristy HansenCO2 [Moles/Vol]29.9 mmol/GLzmatl76.0-32.0The [facility] Comment on above:Performed By: #### CMP, LIPID #### [facility] [address] [address] [address] Kristy HansenCreatinine [Mass/Vol]0.70 mg/dLNormal0.55-1.02The [facility] HospitalComment on above:Performed By: #### CMP, LIPID #### [facility] [address] [address] [address] Kristy ParikhGFR-AF ERITREAN>60Normal>=60The [facility] HospitalComment on above:Performed By: #### CMP, LIPID #### [facility] [address] [address] [address] Kristy ParikhGFR-NON AF ERITREAN>60Normal>=60The [facility] HospitalComment on above:Performed By: #### CMP, LIPID #### [facility] [address] [address] [address] Kristy HansenGlobulin (S) [Mass/Vol]3.3 g/dLNormalThe [facility] HospitalComment on above:Performed By: #### CMP, LIPID #### [facility] [address] [address] [address] Kristy HansenGlucose [Mass/Vol]91 mg/pXHkqhxh25-481HfsGreen Cross Hospital Comment on above:Performed By: #### CMP, LIPID #### [facility] [address] [address] [address] Kristy HansenPotassium [Moles/Vol]4.0 mmol/LNormal3.5-5.1[facility] Comment on above:Performed By: #### CMP, LIPID #### [facility] [address] [address] [address] Kristy HansenProtein [Mass/Vol]6.9 g/dLNormal6.4-8.2[facility] Comment on above:Performed By: #### CMP, LIPID #### [facility] [address] [address] [address] Kristy HanesnSodium [Moles/Vol]142 mmol/BSjkjmk583-406TbjGreen Cross Hospital Comment on above:Performed By: #### CMP, LIPID #### [facility] [address] [address] [address] Kristy HansenUrea nitrogen [Mass/Vol]10.0 mg/dLNormal7.0-18.0The [facility] HospitalComment on above:Performed By: #### CMP, LIPID #### [facility] [address] [address] [address] Kristy HansenUrea nitrogen/Creatinine [Mass ratio]14.3 mg/mgGrant HospitalComment on above:Performed By: #### CMP, LIPID #### [facility] [address] [address] [address] Kristy HansenUrine Cultureon 70-76-6153Uphrbsrc identified Cx Nom (U)Reason for Exam Dysuria Urine <9,000 colonies/ml mixed bacterial skin contaminants 2 Days PERFORMED BY: [facility] [address] [place] [address] PATHOLOGIST MANAGER CRITICAL CARE UNIT ZAHIRA ENGLISH M.D.[facility] Columbus SouthComment on above: Performed By: #### CUU #### [facility] [address] for Release of Medical Recordson 02-22-4220Vvgk for Release of Medical [id number]#[id number]:127 [facility] HospitalUrology Office/Clinic Noteon 77-14-2760Ymfqeok Office/Clinic NoteChief Complaint 1 week follow up HPI Staff SP TURBT 11/12/19 1 week follow up w/ UA and PVR 0mL . pt having difficulty cathing and soreness. was able to cath sunday but it was very painful and she got out 200cc and hasn't tried since becauseof the pain. possible ne lubricated cathing supplies. Dysuria: _no pain/burning but only soreness Incomplete bladder emptying: _not all the time she does not feel she is empty Hematuria: _pt denies, trace- intact per UA Frequency: _lately yes Urgency: _no urgency Nocturia: _yes 1-2 times a night Stream: _not strong stream as it once was in august, start/stop hesitation starting this past weekendwas the worst Leaking: _no leaking Post void [...] herself at times. 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 I completed our companies catheter order forms for her and indicating that self lubricated catheters are typically not given unless patient'shave repeated UTI's due to cathing thus necessitating the no touch catheter. Follow-up With When Contact Information Morris LOTT, Dimas Bowers In 1 year [address] [place] [address] [phone] Additional Instructions: Patient Education Hematuria, Adult I, [...] bladder biopsy (11/12/2019), Cystoscopy (08/26/2019), Radical abdominal hysterectomy(06/06/1995), Cataract, Colonoscopy. Medications atorvastatin 10 mg Tab, Oral, Daily butalbital, As Directed CoQ10, Oral, Daily magnesium amino acids chelate, Oral [place]-3 predniSONE, Oral, Daily Vitamin D3 Allergies Diprivan (Aspiration) Flexeril (Unknown) Social History Alcohol Current, 1-2 times per month, 08/13/2019 Tobacco F (more content not included)...[facility] HospitalComment on above:Result Comment: Electronically Signed By: Dimas Caceres MD\.br\Date and Time Signed: 12/03/2016:07 EDT\.br\Electronically Co-Signed By: Lisha Quintanilla MA\.br\Date and Time Co-Signed: 10/28/20 10:17 EDTAmbulatory Clinical Summaryon 16-59-6972Farverxakc Clinical Summary {[id number]}CD:[id number] Ridge Medical CenterPatient Educationon 33-07-4738Olrjghm EducationFamily Medicine Hematuria, Adult Hematuria (blood in your [...] medicine or the infection may not respond andbecome more difficult to treat. If antibiotics were not given, an infection did not cause the bloodin the urine. A further work up to find out the reason may be needed. HOME CARE INSTRUCTIONS ? Drink lots of fluid, 3 to 4 quarts a day. If you have been diagnosed with an infection, cranberryjuice is especially recommended, in addition to large amounts of water. ? Avoid caffeine, tea, and carbonated beverages, because they tend to irritate the bladder. ? Avoid alcohol as it may irritate the prostate. ? Only take gwwh-xdq-cwvhbpx or prescription medicines for pain, discomfort, or [...] make sure to keep your appointments. If aninfection is not the cause of blood in [...] Document Reviewed: 09/10/2008 ExitCare? Patient Information ?2013 [employer].[facility] HospitalAmbulatory Clinical Summaryon 89-07-8434Wubpaxpuhv Clinical Summary {[id number]-[id number]-[id number]}CD:[id number] Health System Ontario HospitalAmbulatory Clinical Summary {[id number]-[id number]-60-[id number]-c0-29}CD:[id number] Health System Ontario HospitalPatient Educationon 13-25-4646Uyubijv EducationAcute Urinary Retention, Female You have been seen by a caregiver today because of your inability to urinate (pass your water). This is an uncommon problem in females. CAUSES It can be caused by: ? Infection. ? A side effect of a medication. ? A problem in a nearby organ that presses or squeezes on the bladder or the urethra (the tube thatdrains the bladder). ? Psychological problems. TREATMENT Treatment [...] tube) in and go home with a drainagesystem, you will need to discuss the best course of action with your caregiver. While the catheter is in, maintain a good intake of fluids. Keep the drainage bag emptied and lower than your catheter.This is so contaminated (infected) urine will not flow back into your bladder. This could lead to aurinary tract infection. Only take ukcc-vqv-egqwqlf or prescription medicines for pain, discomfort, or fever as directed by your caregiver. SEEK IMMEDIATE MEDICAL CARE IF: You develop chills, fever, or show signs of generalized illness that occurs prior to seeing your caregiver. Document Released: 01/21/2007 Document Revised: 04/15/2012 Document Reviewed: 12/24/2009 ExitCare? Patient Information ?[address] [facility] HospitalUrology Office/Clinic Noteon [id number] Office/Clinic NoteChief Complaint follow up to bladder bx HPI [...] could not void after (more content not included)...[facility] HospitalComment on above:Result Comment: Electronically Signed By: Morris LOTT, Dimas Bowers\.br\Date and Time Signed: 11/26/2014:53 EDT\.br\Electronically Co-Signed By: Zari Campos MA\.br\Date and Time Co-Signed: 11/27/19 14:46 EDT Vital Signs Date TimeVital SignValuePerforming QebfnylqcFsmlbqsj08-83-3240 10:310400Body .56 cmHol[facility]05-[facility]2025 10:310400Body mass index (BMI) [Ratio]23.1 kg/g1TwnrjyvbvHolzer Hospital05-06-2025 10:31040Body krqqugsrewz42.7 [degF][facility]05-06-2025 10:31040Body .23 kgHolzer Hospital05-06-2025 10:310400Diastolic blood mcndybex10 mm[Hg][facility] 06-10-2024 10:310400Heart rate70 /minHolzer Hospital 06-10-2024 10:31-1683VwG0% (BldA) [Mass fraction]98 %[facility]05-06-2025 10:31-0400Systolic blood zressuhe709 mm[Hg][facility]05-13-2024 13:39-0400Body hucgba555.1 cmAnushka Pimentel MD Work Phone: [facility]05-13-2024 13:39-0400Body mass index (BMI) [Ratio]20.97 kg/z9OzxyxzzAnushka Pimentel MD Work Phone: [facility] [employer] Fzwbpa16-15-4255 13:39-0400Body .15 kgAnushka Pimentel MD Work Phone: [facility] [employer] Jtgogu58-63-9663 13:39-0400Diastolic blood poliflkx29 mm[Hg]Anushka Pimentel MD Work Phone: [facility] [employer] Fcovjv14-36-5707 13:39-0400Heart rate 84 /minAnushka Pimentel MD Work Phone: [facility] [employer] Vfykxs55-13-5090 13:39-0400Systolic blood zoupvbaw540 mm[Hg]Anushka Pimentel MD Work Phone: [facility] [employer] Pwaqeu74-16-8697 11:10-0400Body idxjye371.56 cmRicky Dong Other [employer] Other 10-30-2023 11:10-0400Body mass index (BMI) [Ratio] 21.97 kg/b4VcasuRicky Dong Other [employer] Other 10-30-2023 11:10-0400Body mlvusynjhod16.3 [degF]Ricky Dong Other [employer] Other 10-30-2023 11:10-0400Body mhovyz47.06 kgRicky Dong Other [employer] Other 10-30-2023 11:10-0400Diastolic blood subsiwkv79 mm[Hg] Ricky Dong Other [employer] Other 10-30-2023 11:10-0400Respiratory rate18 /minDaviev Dong Other [employer] Other 10-30-2023 11:10-9543FvE2% (BldA) [Mass fraction]99 % Ricky Dong Other [employer] Other 10-30-2023 11:10-0400Systolic blood aursmpsc176 mm[Hg] Ricky Dong Other [employer] Other 04-07-2023 12:10-0400Body lvzvew696.56 cmRicky Dong Other [employer] Other 04-07-2023 12:10-0400Body mass index (BMI) [Ratio] 22.14 kg/u1WmducRicky Dong Other [employer] Other 04-07-2023 12:10-0400Body ioktiaqzyut02.2 [degF]Ricky Dong Other [employer] Other 04-07-2023 12:10-0400Body rzunri97.51 kgDasukhjinder Dong Other [employer] Other 04-07-2023 12:10-0400Diastolic blood kkwqpobn59 mm[Hg] Ricky Dong Other [employer] Other 04-07-2023 12:10-0400Respiratory rate18 /minDaviev Hannadavid Other [employer] Other 04-07-2023 12:10-3789ByA6% (BldA) [Mass fraction]99 % Ricky Dong Other [employer] Other 04-07-2023 12:10-0400Systolic blood poltgpjv319 mm[Hg] Ricky Dong Other [employer] Other 06-28-2022 12:00-0400Body .56 cmDasukhjinder Aman Other [employer] Other 06-28-2022 12:00-0400Body mass index (BMI) [Ratio] 22.14 kg/g5Jzwvwsukhjinder Newton Other [employer] Other 06-28-2022 12:00-0400Body qwxljbykwqe52.4 [degF]Ricky Newton Other [employer] Other 06-28-2022 12:00-0400Body lfomdo87.51 kgDasukhjinder Newton Other [employer] Other 06-28-2022 12:00-0400Diastolic blood btgomsvg40 mm[Hg] Ricky Newton Other [employer] Other 06-28-2022 12:00-9308KfN8% (BldA) [Mass fraction]100 % Ricky Newton Other [employer] Other 06-28-2022 12:00-0400Systolic blood khdykkhg543 mm[Hg] Ricky Newton Other [employer] Other 06-02-2022 15:30-0400Body ehgcue340.56 cmRicky Newton Other [employer] Other 06-02-2022 15:30-0400Body mass index (BMI) [Ratio]23 kg/x1BmoyeRicky Newton Other [employer] Other 06-02-2022 15:30-0400Body elmspgxjpcg19.8 [degF]Ricky Newton Other [employer] Other 06-02-2022 15:30-0400Body .78 kgDasukhjinder Newton Other [employer] Other 06-02-2022 15:30-0400Diastolic blood akckaavj82 mm[Hg] Ricky Newton Other [employer] Other 06-02-2022 15:30-8681VbW5% (BldA) [Mass fraction]100 % Ricky Newton Other [employer] Other 06-02-2022 15:30-0400Systolic blood gijocpxj443 mm[Hg] Ricky Newton Other [employer] Other 04-13-2022 11:30-0400Body .56 cmDasukhjinder Dong Other [employer] Other 04-13-2022 11:30-0400Body mass index (BMI) [Ratio] 24.03 kg/s5Ijmulsukhjinder Dong Other [employer] Other 04-13-2022 11:30-0400Body tagxstgscbb75.7 [degF]Ricky Dong Other [employer] Other 04-13-2022 11:30-0400Body .5 kgDasukhjinder Dong Other [employer] Other 04-13-2022 11:30-0400Diastolic blood orgdwjrb61 mm[Hg] Ricky Dong Other [employer] Other 04-13-2022 11:30-0400Respiratory rate16 /minDbob Dong Other [employer] Other 04-13-2022 11:30-3682SjH4% (BldA) [Mass fraction]97 % Ricky Dong Other [employer] Other 04-13-2022 11:30-0400Systolic blood ncqrwlwe919 mm[Hg] Ricky Dong Other [employer] Other 10-12-2021 11:30-0400Body gnobtk517.56 cmDasukhjinder Dong Other [employer] Other 10-12-2021 11:30-0400Body mass index (BMI) [Ratio] 22.83 kg/u7Imcvjsukhjinder Dong Other [employer] Other 10-12-2021 11:30-0400Body bmqjeq86.33 kgDasukhjinder Dong Other [employer] Other 10-12-2021 11:30-0400Diastolic blood uofmtukf63 mm[Hg] Ricky Dong Other [employer] Other 10-12-2021 11:30-0400Respiratory rate18 /minDbob Dong Other [employer] Other 10-12-2021 11:30-4499QdJ6% (BldA) [Mass fraction]99 % Ricky Dong Other [employer] Other 10-12-2021 11:30-0400Systolic blood jgrajuwr820 mm[Hg] Ricky Dong Other [employer] Other Encounters Encounter DateEncounter TypeCare ProviderFacilityStart: 06-10-2024 End: 48-76-6533cjwmrqkkmsVcnwakbwmDayton Children's Hospital Work Phone: Start: 06-10-2024 End: 05-27-0653Upkvjyz encounter procedureF[facility] Work Phone: Start: 89-99-3636Icc-patient / Non-visitF[facility]ary [facility] [employer] Work Phone: Start: 07-04-2023 End: 38-01-9325ecoljrhxcsLKOYLWXXavi Tatum AvailableStart: 06-18-2023 End: 14-78-2003aaqhgqbipwVJMOPFV G RASHIDMcKit[facility] PPGStart: 06-18-2023 End: 92-74-9997Ubqizl outpatient visit 15 minutesAnushka Pimentel MD Work Phone: [facility] Phys[facility] Genito-Urinary SurgeonsComment on above:Urinary retention (Primary Dx)Start: 12-12-2022 End: 58-29-4078uqpeozvmhzIPHV F BOWERNot AvailableStart: 12-08-2022 End: 44-66-2374kcgtzlunhrLnxmc Girvin Other [employer] Other Start: 17-10-2688Roasnkaex encounterDaviev DongFranciscan Children'start: 12-04-2022 End: 55-18-3706fonibrhaqwBjjjs Girvin Other [employer] Other Start: 61-50-4235Ypyvos outpatient visit 25 minutes Ricky Lyn [facility] [place]Start: 16-84-5434Bsnovicls encounter Ricky DongJADCharli [facility] [place]vueStart: 09-07-2022 End: 20-77-2961xljcxzvtjtFegmj Girvin Other [employer] Other Start: 35-65-1383Khzborldm encounterDasukhjinder HannaDarci [facility] BellevueStart: 08-29-2022 End: 97-28-5715wfjqsytqfkBhtno Girvin Other [facility] [employer] Other Start: 09-00-6790Sfqfciiae encounterDasukhjinder HannaDarci [facility] BellevueStart: 05-25-2022 End: 82-43-4393pxusjfusavMR RICKY DONGFacility:J7Mscld: 05-16-2022 End: 90-25-5233yypsraelowNkcrj Girvin Other [employer] Other Start: 57-73-5361Tbnpoqojk encounterDasukhjinder HannaMitchCharli [facility] [place]vueStart: 05-12-2022 End: 56-21-7751hgrxubppslApzjz Girvin Other [employer] Other Start: 54-32-4920Odarri outpatient visit 15 minutes Ricky DongJADCharli [facility] [place]vueStart: 39-04-2311Udokijitr encounter Ricky DongMISHA [facility] [place]vueStart: 04-18-2022 End: 56-49-4922nlmxhiqacpYflyk Girvin Other [employer] Other Start: 53-51-6886Ndjhcosha encounterDavid Riki [facility] [place]vueStart: 02-07-2022 End: 95-11-0412wpywuxjrkvVjznn Girvin Other [employer] Other Start: 93-10-9888Crfnplvdf encounterDaviev Lyn [facility] [place]vueStart: 11-17-2021 End: 64-93-1764nlrahjskjvRS RICKY Hopecility:B2Wdchw: 08-02-2021 End: 29-53-8524cyokquwhkcXhube Morris Other [employer] Other Start: 73-41-1872Gucsgh outpatient visit 25 minutes Ricky NewtonMartins Ferry Hospital [facility]tr SouthStart: 07-07-2021 End: 29-09-9470dvbrmkkvoyDtwzi Morris Other [facility] [employer] Other Start: 03-45-9464Zdtlco outpatient new 45 minutesDasukhjinder [facility] SouthStart: 05-23-2021 End: 52-37-4971hvgrhxcntoIphlh Girvin Other [employer] Other Start: 01-49-4212Cxvwkzehr encounterDavid Riki [facility] [place]Start: 05-18-2021 End: 85-06-9275fxvylwehngZlnhk Girvin Other [employer] Other Start: 05-68-2793Ziyvvm outpatient visit 25 minutes Ricky Lyn [facility] [place]Start: 02-16-2021 End: 34-19-6532dulzgdehvzFntqt Girvin Other [employer] Other Start: 97-46-4548Enpqwktdv encounterDavid Riki [facility] [place]vueStart: 27-05-2329Wpqiiq outpatient visit 25 minutesDavid EloisaG [facility] [place]vueStart: 19-99-4051Wmnyekwzj encounterDavid LetitiaCharli [facility] [place] Procedures DateProcedureProcedure DetailPerforming ClinicianStart: 18-16-2569Srziqp-up visitFollow-upMICMAGED PIMENTEL Plan of Treatment DateCare ActivityDetailAuthorStart: 06-25-2024 End: 48-08-9334Islbeud encounter qjyoxzbpg68/21/2025 1:45 PM EDT Office Visit [facility] [address] [place] [address] [place] [address] Anushka Pimentel MD [address] [place] [address] [facility]Ur[facility] SurgeonsStart: 64-45-2617Iyxchkmtz vaccinationInfluenza Vaccine ProMSandstone [facility] Access Hospital SystemStart: 19-03-8750Venns BMI ScreeningAdult BMI Screening ProMSandstone [facility] Access Hospital SystemStart: 72-67-5310Xnfkhkc ScreeningTobacco Screening [facility] SystemStart: 17-95-8040BPMUF-19 Vaccine ( season) COVID-19 Vaccine ( season)[facility] SystemStart: 2018 Fall Risk ScreeningFall Risk ScreeningProMercy Health [facility] SystemStart: 11-03-2003 Administration of varicella zoster vaccineZoster (Shingles) Vaccine (1 of 2) [facility] SystemStart: 34-20-9493IPrZ,Tdap and Td Vaccines (1 - Tdap) DTaP,Tdap and Td Vaccines (1 - Tdap)[facility] SystemStart: 1965 Depression ScreeningDepression ScreeningFirelands Regional Medical Center SystemStart: 1953 Medicare Annual Wellness VisitMedicare Annual Wellness VisitProMercy Health St[facility] SystemComprehensive metabolic 2000 panel - Serum or PlasmaAdventHealth Central Pasco ER Immunizations Immunization DateImmunizationNotesCare DdnllejvJitlobcy70-78-9813Xvgmtdus 50 MCG/0.5ML; Translations: [Shingrix 50 MCG/0.5ML]Ricky Dong Other [employer] Other [id number]-68 Vaccine Pfizer - Documentation Purposes OnlyDasukhjinder Dong Other [facility]02-09-2021COVID-19 Vaccine Pfizer - Documentation Purposes OnlyDasukhjinder Dong Other [facility]10-14-2019influenza virus vaccine, unspecified formulationAnushka Pimentel MD Work Phone: [facility] CenterTR[facility] Predictive Data ScienceWzjbif36-87-1437Szqvomy per 15 mg Ricky Dong Other [employer] Other Payers DatePayer CategoryPayerPolicy [id number] [facility] [employer] [place] [employer]AN nycc01-10 2020-Present [phone] [address] [place] [address] [id number] 2019MedicareMEDICARE MEDICARE PART A & B [id number] 2018-Present [phone] [address] [place] [id number] [id number] [id number] [id number] [id number] 2.16840.1.457858.3.57[id number] 2.16.840.1.510297.3.57[id number] 2.16.840.1.328346.3.57[id number] 2.16.840.1.361830.3.579.2.480476-18-2775Mpesjtr2264 2.16.840.1.486426.3.579.2.1259Private Health InsuranceAetna Insurance Co [id number] Employees [id number] Insurance [id number] Social History DateTypeDetailFacilityUnknown if ever smokedAlvord [employer] Other Start: 03-26-2019 End: 53-90-5133Ipt Assigned At [facility] [employer] Other Start: 06-18-2023 End: 35-13-4069Swobrvn smoking status NHISNever smoked tobaccoSelect Medical [facility] [employer] SystemStart: 44-85-8501Lgaxmnc use and exposureSmokeless tobacco non-user [facility] [employer] SystemStart: 40-58-8806Urigdjhxs beverage intakeLifetime non- drinker (finding)[facility] [employer] SystemStart: 03-26-2019 End: 54-93-0556Rejcwuw of Social functionProMeditx Health SystemFrequency of Alcohol ConsumptionNeverFirelands Regional Medical Center SystemStart: 89-13-0603Spj assigned at birthNot on fileProHill Crest Behavioral Health Services [employer] SystemStart: 29-53-6899ZejIfjboq (finding) [facility] Hospitaltart: 84-95-8778Uof Assigned At BirthSelect Medical [facility] Medical Equipment Procedure CodeEquipment CodeEquipment Original TextEquipment IdentifierDatesLens Iol Ultrasert 14.5d - [id number] - [id number]: 25-26-5450Gpxs Iol Ultrasert 15.5d - [id number] - [id number]: 04-17-2019 Clinical Notes 11-16-2020 to 06-18-2023 Note Date & YhzbCrvbPhmyxjkb49-19-7081 Evaluation + Plan note* Assessment & Plan Note - Anushka Pimentel MD - 06/18/2023 1:53 PM EDTAssociated Problem(s): Urinary retention Doing very well. She certainly could see me sooner but otherwise will see her back in 1 year. [facility] [employer] PropertiesEzygyh07-54-1610 Miscellaneous Notes* Assessment & Plan Note - Anushka Pimentel MD - 06/18/2023 1:53 PM EDTAssociated Problem(s): Urinary retention Doing very well. She certainly could see me sooner but otherwise will see her back in 1 year. [facility] History of Present illness Narrative* Anushka Pimentel MD - 06/18/2023 1:15 PM EDT Images from the original note were not included. [address] [place] [address] [facility] [address] Patient: Effie Vargas Date of : 1955 Encounter Date: 06/18/2023 History of Present Illness: The patient is a 67 y.o. female, an established patient, and is here for history of UTIs. Have beenresolved. No interval UTI no gross hematuria no dysuria. No urinary incontinence. No chronic constipation.. Urinalysis today: No results for input(s): EXTPOCURCO , EXTPOCURCH , EXTPOCAPP , EXTPOCURBS , EXTPOCURBIL , EXTPOCUKET , EXTPOCUSPG , EXTPOCUHGB , EXTPOCUPRO , EXTPOCUURO , EXTPOCULEU , EXTPOCUNIT , EXTPOCUWBC , EXTPOCUBLD , EXTPOCURBC , EXTPOCUCRY , EXTPOCUBAC , EXTPOCUTREP , EXTPOCUPH in the last 72 hours. Last BUN and creatinine: No results found for: BUN No results found for: CREATININE Last PSA: No results found for: PSA No results found for: PROSTATICSP Past Medical, Family, and Social History Update: The following portions of the patient's history were reviewed and updated as appropriate: allergies, current medications, past family history, past medical history, past social history, past surgicalhistory and problem list. Past Medical History: Diagnosis Date Cancer ([facility] cervical Cataract Headache Hyperlipidemia Self-catheterizes urinary bladder bladder knicked after hysterectomy, 1-2 x/monthly Steroid-induced glaucoma Urinary retention Urinary tract infection Past Surgical History: Procedure Laterality Date BLADDER SURGERY 11/12/2019 bladder biopsy EYE SURGERY 11/2022, 04/2022 HYSTERECTOMY PHACO KELMAN I IMPLANT INTRAOCULAR LENS Right 04/17/2019 Performed by Tanya Barragan MD at [facility] PHACO KELMAN I IMPLANT INTRAOCULAR LENS Left 04/03/2019 Performed by Tanya Barragan MD at [facility] TUBAL LIGATION Family History Problem Relation Age of Onset Hypertension Mother Cataracts Mother Current Outpatient Medications Medication Sig Dispense Refill atorvastatin (LIPITOR) 10 mg tablet Take 1 tablet (10 mg total) by mouth in the morning. cemfoal-ersxbnbavz-AZG-caff (FIORINAL WITH CODEINE) capsule Take 1 capsule by mouth every 4 (four) hours as needed for pain. coenzyme Q10 30 mg capsule Take 100 mg by mouth 3 (three) times a day. d-mannose 500 mg capsule Take by mouth. PRN kxvfgoeylaav-Kz-cvbz-minerals tablet Take 1 tablet by mouth in the morning. omega-3 acid ethyl esters (LOVAZA) 1 gram capsule Take 2 capsules (2 g total) by mouth in the morning and 2 capsules (2 g total) before bedtime. No current facility-administered medications for this visit. (All medications reviewed and updated by provider since last office visit or hospitalization) Allergies: Flexeril [cyclobenzaprine] and Propofol Tobacco History: Social History Tobacco Use Smoking Status Never Smokeless Tobacco Never (If patient a smoker, smoking cessation counseling offered) Social History: Social History Substance and Sexual Activity Alcohol Use Never Review of Systems: General: Negative for chills and fever. Cardiovascular: Negative for chest pain and shortness of breath. Gastrointestinal: Negative for constipation, diarrhea, nausea, and vomitting. Physical Exam: BP 112/71 Pulse 84 Ht 165.1 cm (5' 5 ) Wt 57.2 kg (126 lb) BMI 20.97 kg/m General Alert., Cooperative. Not in acute distress. Non-toxic. Orientation - Oriented X3. Head and Neck Normocephalic, atraumatic with no lesions. No abnormal movements. Trachea - midline. Integumentary Normal coloration of skin. Skin Moisture - normal skin moisture. Chest and Lung Exam Quiet, even and easy respiratory effort with no use of accessory muscles. Neurologic NON-focal Assessment and Plan: Effie was seen today for follow-up. Diagnoses and all orders for this visit: Urinary retention Problem List High Urinary retention - Primary Overview ==== 06/18/2023 ==== still voiding well. No [...] after gynecological procedure she had her bladder nicked. After that time she had been on [...] determined to be roughly 7-17 oz. She bringsin a voiding log today when she has [...] biopsy demonstrating negative pathology. She has shallow widemouth diverticulum left lateral wall. Patient wishes to [...] indication to repeat such. We discussed [facility] bladder solution will try to withhold the steroid component although systemic absorption would be quite minimal via the intravesical route we discussed potentially bethanechol as well as InterStim. Will just see how she does with [facility] in return to the office. She may catheterize whenever she feels like she needs to. Current Assessment & Plan Doing very well. She certainly could see me sooner but otherwise will see her back in 1 year. Follow-up: Return clinic 1 year Anushka Pimentel MD This note was created with the assistance of a speech recognition program. While intending to generate a timely document that accurately reflects the content of the visit, no guarantee can be provided that every grammatical or spelling mistake has been or will be identified or corrected. Thank you for your understanding. [facility] History general Narrative - Reported* Type Description Date Medical History Hysterectomy 1995; Ev Casarez due to cervical cancer, it was all contained with hysterectomy, no longer follows with Dr. Casarez Medical HistoryMammogram; , [facility] HistoryNo history of Stress Test, CT Scan Abdomen or PelvisMedical HistoryHistory of Chicken Pox as a Child Medical HistoryColonoscopy 03-04-12; [facility] HistoryFlu Vaccine 2014 and 2015Medical HistoryHyperlipidemiaMedical HistoryDermalgraphiaMedical HistorymigrainesSurgical HistoryTotal Hysterectomy; Dr. Casarez- due to cervical [id number] HistoryColonoscopy, Dr. Nicolas / [id number] Hospitalization Historysee above surgical [id number] [facility] Other 11-03-2023 History general Narrative - Reported* Type Description Date Medical History Hysterectomy 1995; Ev Casarez due to cervical cancer, it was all contained with hysterectomy, no longer follows with Dr. Casarez Medical HistoryMammogram; , [facility] HistoryNo history of Stress Test, CT Scan Abdomen or PelvisMedical HistoryHistory of Chicken Pox as a Child Medical HistoryColonoscopy 03-04-12; [facility] HistoryFlu Vaccine 2014 and 2015Medical HistoryHyperlipidemiaMedical HistoryDermalgraphiaMedical HistorymigrainesSurgical HistoryTotal Hysterectomy; Dr. Casarez- due to cervical [id number] HistoryColonoscopy, Dr. Nicolas / [id number] Hospitalization Historysee above surgical [id number] [facility] Other 11-03-2023 Evaluation note* Encounter Date Diagnosis Assessment Notes Treatment Notes Treatment Clinical Notes Dec, Migraine (ICD-10 - G43.909) [facility] Other 10-30-2023 Evaluation note* Encounter Date Diagnosis Assessment Notes Treatment Notes Treatment Clinical Notes Nov, Hyperlipidemia (ICD-10 - E78.5) Discussed cholesterol results with patient today. Total is 171. HDL is 57. LDL is 98. Triglyceridesare 80. VLDL is 16. She is taking the Lipitor every other day and voices that sometimes she forgetsto take it every other day. I did recommend that she continue to take it every other day. She does take the Co-Q-10 along with this. She eats a very healthy diet and avoids sugars and should continuewith this. Nov,Hyperglycemia (ICD-10 - R73.9)Discussed her blood sugar readings today. Her glucose is 91. HgA1C is 5.1 which is normal. Continueto monitor diet and stay active. She is to continue with her healthy lifestyle. Nov,Leg pain (ICD-10 - M79.606)She has shooting pain between her left groin [...] an xray done of her low back. Nov,Insomnia (ICD-10 - G47.00)She has tried Melatonin which has helped her to get to sleep but then she wakes up. She has tried to stay away from her phone, TV a couple of hours before bed. She has avoided eating after 7. She keep s her room cool. She does not use [...] on any night she uses Xanax. Side effects/risks/benefits of medication were reviewed. OTC sleeping medications can cause dementia. I did explain to her that sleeping medication can cause some people to get up during the night and do things that they may not remember. She lives alone and does not want to take a chance of getting up and doing anything she may not remember.She will try to make her room cooler and see if this helps her to sleep. Recommend she try to keep her room at 64 degrees. She will keep me posted with how she is doing. Nov,nxiety (ICD-10 - F41.9)She voices that she rarely uses the Xanax. [...] including the use of non-opiod analgesics and non-pharmacological intervention with patient if treated for pain. [...] current substance abuse treatments are being prescribed. Nov,Other longterm (current) drug therapy (ICD-10 - Z79.899) Nov,Nocturia (ICD-10 - R35.1) Nov,Weight gain (ICD-10 - R63.5) Nov,old sore (ICD-10 - B00.1)She was provided with a prescription for Famciclovir today. She voices that the medication is expensive so she will see where she can find this that is affordable and have it on hand for when needed. Nov,Migraine (ICD-10 - G43.909)I did provide her with a refill on Fioricet. Nov,alpitation (ICD-10 - R00.2)Continue with above medication daily as directed. Nov,OtherShe is following with her eye doctor for dry eye, she voices that the pressure in her eyes is up. She will see her eye doctor tomorrow. She is currently using drops in her eyes.She is considering having Botox/fillers done in her face. She is still exploring options and different locations to have this done. [facility] Other 08-03-2023 History general Narrative - Reported* Type Description Date Medical History Hysterectomy 1995; Ev Casarez due to cervical cancer, it was all contained with hysterectomy, no longer follows with Dr. Casarez Medical [facility]Mammogram; , [facility]No history of Stress Test, CT Scan Abdomen or PelvisMedical HistoryHistory of Chicken Pox as a Child Medical HistoryColonoscopy 03-04-12; Dr. NicolasMedical HistoryFlu Vaccine 2014 and 2015Medical HistoryHyperlipidemiaMedical HistoryDermalgraphiaMedical HistorymigrainesSurgical HistoryTotal Hysterectomy; Dr. Casarez- due to cervical [id number] HistoryColonoscopy, Dr. Nicolas / [id number] Hospitalization Historysee above surgical [id number] [facility] Other 08-03-2023 Evaluation note* Encounter Date Diagnosis Assessment Notes Treatment Notes Treatment Clinical Notes Sep, Hyperlipidemia (ICD-10 - E78.5) [facility] Other 07-25-2023 Evaluation note* Encounter Date Diagnosis Assessment Notes Treatment Notes Treatment Clinical Notes Aug, Anxiety (ICD-10 - F41.9) She does continue to use and benefit from the Xanax but she rarely takes the medicine. I will provide her with a refill today. I will see her back in three months. Side effects/risks/benefits of medication were reviewed. An OARRS report [...] including the use of non-opiod analgesics and non-pharmacological intervention with patient if treated for pain. [...] current substance abuse treatments are being prescribed. Aug,Encounter for screening fecal occult blood testing (ICD-10 - Z12.11) I did advise her that her FOBT test was negative. Aug,Hyperlipidemia (ICD-10 - E78.5)She did request a refill of her Lipitor. I will send this to her mail order pharmacy today. She hasbeen eating healthy and is exercising. She does alot of walking. [place] and walks in there because there is not alot of traffic. She is to continue with what she is doing. She does her own yardwork to stay active. Aug,Other11:35 AM - 11:46 AM [facility] Other 04-11-2023 History general Narrative - Reported* Type Description Date Medical History Hysterectomy 1995; Ev Casarez due to cervical cancer, it was all contained with hysterectomy, no longer follows with Dr. Casarez [facility], CT Scan Abdomen or PelvisMedical HistoryHistory of Chicken Pox as a Child Medical HistoryColonoscopy 03-04-12; Dr. NicolasMedical HistoryFlu Vaccine 2014 and 2015Medical HistoryHyperlipidemiaMedical HistoryDermalgraphiaMedical HistorymigrainesSurgical HistoryTotal Hysterectomy; Dr. Casarez- due to cervical [id number] HistoryColonoscopy, Dr. NicolasOtdhpbkrs9-53-03Kpmgtnasphblgvk Historysee above surgical [id number] [facility] Other 04-11-2023 Evaluation note* Encounter Date Diagnosis Assessment Notes Treatment Notes Treatment Clinical Notes May, Eustachian tube dysfunction, rig ht (ICD-10 - H69.81) [facility] Other 04-10-2023 History general Narrative - Reported* Type Description Date Medical History Hysterectomy 1996; D r. Phibbs due to cervical cancer, it was all contained with hysterectomy, no longer follows with Dr. Casarez Medical HistoryMammogram; , [facility] HistoryNo history of Stress Test, CT Scan Abdomen or PelvisMedical HistoryHistory of Chicken Pox as a Child Medical HistoryColonoscopy 03-04-12; Dr. NicolasMedical HistoryFlu Vaccine 2014 and 2015Medical HistoryHyperlipidemiaMedical HistoryDermalgraphiaMedical HistorymigrainesSurgical HistoryTotal Hysterectomy; Dr. Casarez- due to cervical [id number] HistoryColonoscopy, Dr. NicolasZwggkmzre8-23-68Qhqbmgtxvrlvumr Historysee above surgical [id number] [facility] Other 04-07-2023 History general Narrative - Reported* Type Description Date Medical History Hysterectomy 1995; D r. Phibbs due to cervical cancer, it was all contained with hysterectomy, no longer follows with Dr. Casarez Medical HistoryMammogram; , [facility]No [facility], CT Scan Abdomen or PelvisMedical HistoryHistory of Chicken Pox as a Child Medical HistoryColonoscopy 03-04-12; Dr. NicolasMedical HistoryFlu Vaccine 2014 and 2015Medical HistoryHyperlipidemiaMedical HistoryDermalgraphiaMedical HistorymigrainesSurgical HistoryTotal Hysterectomy; Dr. Casarez- due to cervical [id number] HistoryColonoscopy, Dr. NicolasIcuwixqzw7-61-40Xijgnrocrirjveb Historysee above surgical [id number] [facility] Other 04-07-2023 Evaluation note* Encounter Date Diagnosis Assessment Notes Treatment Notes Treatment Clinical Notes May, Eustachian tube dysfunction, rig ht (ICD-10 - H69.81) On exam, she is told that her ear does not have any impacted cerumen. Her ear drum in general appears normal, but there is one portion that is injected and appears angry she may be trying to get anear infection or this could be eustachian tube [...] to help pop open the eustachian tube. May,Otitis media (ICD-10 - H66.90)rightIncase her right ear is trying to become [...] antibiotic so I will prescribe Amoxicillin instead. May,OtherShe voices that her ear itches and she does use q-tips sometimes. I did recommend she avoid using q-tips and the itching should resolve. [facility] Other 03-14-2023 Evaluation note* Encounter Date Diagnosis Assessment Notes Treatment Notes Treatment Clinical Notes Apr, Other specified health status (I CD-10 - Z78.9) [facility] Other 01-03-2023 Evaluation note* Encounter Date Diagnosis Assessment Notes Treatment Notes Treatment Clinical Notes Feb, Hyperlipidemia (ICD-10 - E78.5) [facility] Other 06-28-2022 History general Narrative - Reported* Type Description Date Medical History Hysterectomy 1995; Ev Casarez due to cervical cancer, it was all contained with hysterectomy, no longer follows with Dr. Casarez Medical HistoryMammogram; , [facility] HistoryNo history of Stress Test, CT Scan Abdomen or PelvisMedical HistoryHistory of Chicken Pox as a Child Medical HistoryColonoscopy 03-04-12; Dr. NicolasMedical HistoryFlu Vaccine 2014 and 2015Medical HistoryHyperlipidemiaMedical HistoryDermalgraphiaMedical HistorymigrainesSurgical HistoryTotal Hysterectomy; Dr. Casarez- due to cervical [id number] HistoryColonoscopy, Dr. NicolasScuneihfn2-48-22Zjhkfripokhohgs Historysee above surgical [id number] [facility] Other 06-28-2022 Evaluation note* Encounter Date Diagnosis Assessment Notes Treatment Notes Treatment Clinical Notes Jul, Snoring (ICD-10 - R06.83) Her home sleep test did show 33 respiratory events, which gave a respiratory disturbance index of only 3.5. While home sleep testing can underestimate apnea severity with her weight loss and improvedsymptoms I do not feel we need to proceed to PSG Jul,Fatigue, unspecified type (ICD-10 - R53.83)She reports her fatigue is substantially better, and [...] to recheck in 4 5 months and todiscuss at that time. She will call sooner if any problems Jul,MI 22.0-22.9, adult (ICD-10 - Z68.22) [facility] Other 06-02-2022 Evaluation note* Encounter Date Diagnosis Assessment Notes Treatment Notes Treatment Clinical Notes Jul, Sleep apnea (ICD-10 - G47.30) I reviewed the diagnosis of sleep apnea and its implications, and she expresses good understanding.We also reviewed treatment options, which in her situation could include positive airway pressure treatment, tonsillectomy, and possibly other interventions. She is not really interested in tonsillectomy, and reports she is relatively comfortable with the idea of CPAP. However she would like to return to review results before making any treatment decisions, and we thus anticipate return after home sleep testing Jul,Excessive daytime sleepiness (ICD-10 - G47.19)She has excessive daytime sleepiness despite adequate to increase total sleep time, and she has loud snoring with observed apneas. The situation is overall suggestive of obstructive sleep apnea. She is familiar with the diagnosis and reports that her son has the disorder, successfully treated with CPAP. She also reports that his body habitus is not overweight. Consequently, despite her relativelylow BMI there is reasonable concern that sleep apnea is present. Jul,Enlarged tonsils (ICD-10 - J35.1)She does have enlarged tonsils though they do not appear to be inflamed or infected. Tonsillar enlargement can cause airway narrowing that may significantly contribute to snoring and sleep apnea in some patients Jul,MI 23.0-23.9, adult (ICD-10 - Z68.23)Given her body habitus it seems relatively unlikely that weight reduction would significantly impact her snoring Jul,Generalized anxiety disorder (ICD-10 - F41.1)She does have anxiety which is currently well controlled using medication. Her current medications are unlikely to substantially affect sleep apnea tendencies Jul,therThe diagnosis of Sleep Apnea was reviewed in detail, and [...] caloric intake quantity and better food choices.The patientwas advised to call or return any difficulties arise, including changes in symptoms and/or problemswith treatment [facility] Other 04-13-2022 Evaluation note* Encounter Date Diagnosis Assessment Notes Treatment Notes Treatment Clinical Notes May, Hyperlipidemia (ICD-10 - E78.5) She voices that she started to get heartburn so she did some research and found that she should notbe taking Lipitor and her heartburn medicine at the same time. She then found she was not really taking the Lipitor as directed. Discussed cholesterol results with patient today. Total is 193. HDL is53. LDL is 116.8. Triglycerides are 116. I would like to see her LDL between 70-100. She is encouraged to return to taking the Lipitor daily. She voices that she will return to taking the medication. May,Hyperglycemia (ICD-10 - R73.9)Discussed blood sugar results with her today. Glucose is 105. HgA1C is 5.0 which is down from 5.8. She voices that she is eating alot of salads and healthier options. She is to continue with these dietary changes that she has made because they are working well for her. May,Heartburn (ICD-10 - R12)She voices that she took Omeprazole 20 MG for one month and it does not seem to be working but she had tried Prevacid which worked better. She would like a prescription for this today. I will provideher with a prescription to take with her and she will find a pharmacy that is affordable for her toget the prescription from. If once she has been on the Prevacid for two months she continues to have symptoms or has breakthrough symptoms she is to let me know and we would need to refer her for an EGD. She is to keep me posted with how she is doing. If needed we would refer her to Dr. Miller. May,Tachycardia (ICD-10 - R00.0)Her pulse is 105 in the office today. [...] she should go to the ER for evaluationto rule out abnormalities. May,Migraine (ICD-10 - G43.909)Continue with above medication as needed. Side effects/risks/benefits of medication were reviewed. May,Neurodermatitis (ICD-10 - L28.0)She voices that the spots on her arms [...] up. If needed she can try the C hildren's Benadryl dose and see if this causes less fatigue. May,Fatigue (ICD-10 - R53.83)She admits to being fatigued and we have discussed sleep apnea. At this time she does want to see asleep specialist to discuss sleep apnea. A referral is provided. May,Weight gain (ICD-10 - R63.5)Her TSH is 1.637 which is normal. May,old sore (ICD-10 - B00.1)She is taking above medication for the current outbreak she has below her nose. Today is the last day of medication that she has. She can continue to take the medication if she needs it, she has one refill. She has spots on her arms as well. She wonders if these are chicken pox, she had chicken poxwhen she was a child. If this was Shingles it would never be on both sides of the body. May,nxiety (ICD-10 - F41.9)An OARRS report was reviewed no discrepancies noted. She does continue to use and benefit from the Xanax as needed. Frequent appointments needed due to addiction potential of medication. I will need to see her back in three months. Side effects/risks/benefits of medication were reviewed. 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 May,Hematuria (ICD-10 - R31.9)She voices that she had two urinary tract infections in Mar (2021) and was treated with two different antibiotics for two infections she had at the same time. She voices that in April (2021) she had her urine repeated and it showed that things had resolved. She now has urinary pressure during the night. She has been following with Dr. Pimentel who comes to [place] from [place]. Based on her urinalysis done on 05-12-21 it does not show infection, but it had a trace of blood which could be from her bladder being irritated. I did recommend that if things do not feel right she return to see Dr. Pimentelfor evaluation and to discuss the hematuria. May,therI did recommend that she get the Shingrix vaccine series once her cold sore has cleared up. [facility] Other 01-12-2022 Evaluation note* Encounter Date Diagnosis Assessment Notes Treatment Notes Treatment Clinical Notes Feb, Anxiety (ICD-10 - F41.9) An OARRS report was reviewed, no discrepancies noted. She does continue to use and benefit from theXanax as needed. Frequent appointments needed due to addiction potential of the medication. Side effects/risks/benefits of medication were reviewed. She does not need a refill at this time but can call when she needs one. Feb,cute sinusitis (ICD-10 - J01.90)resolved She voices that her sinus infection seemed to linger for over a month as well as a cough but eventually she was able to get rid of both. Her COVID-19 PCR test on 01-12-21 was negative. She is encouraged to continue to wear her mask when she is out and use good handwashing. Feb,pnea (ICD-10 - R06.81) She voices that she did not see the sleep specialist because after this was discussed last she never woke up gasping and feels good when she is up for the day and is not fatigued. If she begins to notice this again or is fatigued or feels she needs to go to bed after she gets up then she should letme know and we can refer her to a sleep specialist. She agrees with this plan. Feb,old sore (ICD-10 - B00.1) She is currently taking the above medication for a sore she has in her nose, she feels she got thisbecause her immune system was weakened from her recent illness. I will provide her with a refill soshe has this on hand. Feb,ther10:38 AM - 10:46 AM [facility] Other 10-12-2021 Evaluation note* Encounter Date Diagnosis Assessment Notes Treatment Notes Treatment Clinical Notes Nov, Anxiety (ICD-10 - F41.9) [facility] Other 10-12-2021 Evaluation note* Encounter Date Diagnosis [...] continue with the same dose, she agrees. Nov,Hyperglycemia (ICD-10 - R73.9) Discussed blood sugar results [...] intake of carbs and sugars. Stay active. Nov,noring (ICD-10 - R06.83) While on vacation her sister heard her snoring and witnessed her gasping for air. She admits to having fatigue. We discussed sleep apnea today. I did recommend she see Dr. Newton for evaluation to discuss further. She is going to think about this and will let me know if she would like a referral. Nov,pnea (ICD-10 - R06.81) Nov,ephalgia (ICD-10 - R51) Provided her with a refill on Fiorinal today. Side effects/risks/benefits of medication were reviewed. Nov,Other intermodal customer service (current) drug therapy (ICD-10 - Z79.899) Nov,nxiety (ICD-10 - F41.9) She has had to attend alot of funerals recently and feels she needs the Xanax to have on hand. I did explain to her that we can refill the Xanax but she will have to be seen every three months. She can call for refills in between visits. An OARRS report was reviewed, no discrepancies noted. Nov,Nocturia (ICD-10 - R35.1) Nov,Fatigue (ICD-10 - R53.83) She voices that she [...] day she woke up earlier than normal. Nov,alpitation (ICD-10 - R00.2) Continue with above medication daily as directed. Nov,old sore (ICD-10 - B00.1) She would like to have above medications on hand to use if needed. Nov,ncounter for screening mammogram for breast cancer (ICD-10 - Z12.31) Provided her with an order to have a bilateral mammogram done. Nov,Weight gain (ICD-10 - R63.5) Nov,OtherShe voices that when at her dentist appointment last week her blood pressure was in the 90's over 60's. She brought her machine with her today and her reading was in the 120's over low 90's. In the office her reading was 130/78 which was normal. Will continue to monitor. [facility] [employer] Other Evaluation noteNo InformationNortKindred Healthcare [employer] Other Evaluation note* Diagnosis Urinary retention- Primary Unspecified retention of urine documented in this encounter [facility] System[facility]* Diagnosis Onset Date Resolution Status Admit Date Hyperglycemia acuteMay 2024 10:30amHyperlipidemiaacuteMay 2024 10:30amMigraineacute May 2024 10:30amTinnitus, bilateralacuteMay 2024 10:30amWeight gain acuteMay 2024 10:30am [facility] Work Phone: History general Narrative - Reported* Type Description Date Medical History Hysterectomy 1995; Ev Casarez due to cervical cancer, it was all contained with hysterectomy, no longer follows with Dr. Casarez Medical HistoryMammogram; , [facility] HistoryNo history of Stress Test, CT Scan Abdomen or PelvisMedical HistoryHistory of Chicken Pox as a Child Medical HistoryColonoscopy 03-04-12; Dr. NicolasMedical HistoryFlu Vaccine 2014 and 2015Medical HistoryHyperlipidemiaMedical HistoryDermalgraphiaMedical HistorymigrainesSurgical HistoryTotal Hysterectomy; Dr. Casarez- due to cervical [id number] HistoryColonoscopy, Dr. NicolasQjvonufwh4-60-73Gfzirfwxsbiltec Historysee above surgical [id number] [facility] Other History general Narrative - Reported* Type Description Date Medical History Hysterectomy 1995; D james Casarez due to cervical cancer, it was all contained with hysterectomy, no longer follows with Dr. Casarez [facility]; [facility]No history of Stress Test, CT Scan Abdomen or PelvisMedical HistoryHistory of Chicken Pox as a Child Medical HistoryColonoscopy 03-04-12; Dr. NicolasMedical HistoryFlu Vaccine 2014 and 2015Medical HistoryHyperlipidemiaMedical HistoryDermalgraphiaMedical HistorymigrainesSurgical HistoryTotal Hysterectomy; Dr. Casarez- due to cervical dcprsn9173Uoxeleco HistoryColonoscopy, Dr. Nicolas / Wxihsi9-76-44 Hospitalization Historysee above surgical [id number] [facility] Other InstructionsNot on filedocumented in this encounter [facility] Narrativereview labs/med refill, discuss multiple issues, see treatment plan for further Lanyrd Other Reason for visit Narrativereview labs, discuss multiple issues, see treatment plan for further Lanyrd Other Summary Purpose Family History Relationship Condition Age at Onset Recorded Date/T heather father Unknown Malignant neoplasmUnknowngrandparentDeceasedUnknownmotherHeart diseaseUnknown DeceasedUnknownsonSleep apneaUnknown Advance Directives Advance Directive Response Recorded Date/ Time Advance Directives Yes December 2:29pm Reason for Referral Reason appt consult for r t ear being plugged since flying two wks ago Diagnosis 1 Eustachian tube dysf unction, right (H69.81) Referral Organization [facility] Referring Provider First Name Ricky Referring Provider Last Name Jacquesdavid Referring Provider Specialty Family Prac destiny Referred Organization [facility] Referred Provider Emperatriz Durbin Referred Address ,[place], [place],[address] Referred Provider Specialty Ear, Nose an d Throat Referral Priority Routine General Notes VenturaPhylicia chaneyorah 05/16/2022 01:51:40 PM > referral sent p2p with TE message, visit note and insurance cards. pt was provided with the phone number for the office and she will contact them tomorrow regarding an appt Reason appt pt needs cons ult to discuss fatigue, elevated co2 level, possible sleep apnea Diagnosis 1 Fatigue (R53.83) Referral Organization [facility] Referring Provider First Name Ricky Referring Provider Last Name Jacquesdavid Referring Provider Specialty Family Prac destiny Referred Organization [facility] Referred Provider Nelson Mukherjee Referred Address [address] [place],[address] Referred Provider Specialty Sleep Medici ne Referral Priority Routine General Notes Ramya Ventura 05/18/2021 02:21:24 PM > [facility] referral form faxed with visit note, med list and demographics. pt understands she will be contacted to schedule this appt. Chief Complaint and Reason for Visit Chief Complaint Admit Date review labs June 10, 2024 10:30a m Reason for Visit Admit Date Hyperglycemia June 10, 2024 10:30a m Hyperlipidemia June 10, 2024 10:30a m Migraine June 10, 2024 10:30a m Tinnitus, bilateral June 10, 2024 10:30a m Weight gain June 10, 2024 10:30a m Additional Source Comments INFORMATION SOURCE (unrecogn ized section and content) DATE CREATED AUTHOR 11/22/2020 [facility] DATE CREATED AUTHOR AUTHOR'S ORGANIZ ATION 08/11/2021 [facility] DATE CREATED AUTHOR AUTHOR'S ORGANIZ ATION 05/30/2022 [facility] DATE CREATED AUTHOR AUTHOR'S ORGANIZ ATION 06/19/2023 [facility] DATE CREATED AUTHOR AUTHOR'S ORGANIZ ATION 07/05/2023 [facility] EPIC REASON FOR VISIT (unrecogniz ed section and content) ReasonCommentsFollow-up Care Teams (unrecognized sec tion and content) Team MemberRelationshipSpecialtyStart DateEnd Date Letitia Ricky Carpio DO [address] [place] [address] [address] [place] [id number] PCP - GeneralFamily Medicine04/03/19 Team Status: Active Member Role Status Dates Ricky Dong DO Primary Care Provider Active Team Status: Active Member Role Status Dates Ricky Dong DO Primary Care Provide r, Attending Provider Active Start: June 06, 2024 Team Status: Inactive Member Role Status Dates Ricky Dong DO Primary Care Provide r, Attending Provider Active Start: June 10, 2024 End: June 10, 2024 Goals (unrecognized section and content) Goals may be documented in a n alternate section FOR RECORDS PERTAINING TO PATIENTS WHO ARE [...] BE BASED ON THE PRIMARY CLINICAL RECORDS. [employer] [facility]. provides no warranty or guarantee of the accuracy or completeness of information in this document.
== END 2025-01-12 09:52 | disposition home or self-care (01) ==
LOC: LAB 09:51
PROVIDERS: PCP Family Medicine; Visit Provider Family Medicine
DX: Z12.11 Encounter for screening for malignant neoplasm of colon (principal)
CPT/HCPCS: G0328

== ENCOUNTER 2025-01-26 13:09 | Outpatient (OUT) | payer MEDICARE, OTHER, SELFPAY ==
--- OUTSIDE RECORDS SUMMARY | 2025-01-26 13:13 | XMS_ITS | Clinical Summary ---
Author Organization [facility] Healthcare Address [address] [place] [address] Care Team Providers Care Legal Compliance Officer Name Role Phone Dmitri Hess MD Primary Care Provider Allergies Active AllergyReactionsCriticalityNoted DateCommentsCyclobenzaprineHeadache, Hslziky2803/26/20195800MxqixoskGtgtecq08/27/8024KwsvkcpbysDwwpoqr48/27/2023 Medications MedicationSigDispense QuantityRefillsLast FilledStart DateEnd DateStatus coenzyme Q-10 100 MG capsule Take 1 capsule by mouth 1 (one) time each day at the same time.Active qcrkadreyo-dmgarns-txcxeprw-codeine (Fiorinal with Codeine #3) 49-561-10-30 MG capsule Take 1 capsule by mouth [...] (twelve) hoursActive Active Problems ProblemNoted DateDiagnosed DateAsymptomatic qgqaaidgjfg63/29/2024urrent smoker 07/04/2023 Overview (07/04/2023): Added secondary to documentation in Social History. Svyhhgh7307/04/20234108Eseengohhpxxd29/29/2191Yrvlvvwbkximoo25/29/2024Incomplete emptying of rgiddyy1507/04/2023Increased frequency of edmyultob44/29/2024Insomnia 07/04/20237434Kqkixllc58/29/0208Nsimnwuu68/29/2024ecurrent urinary tract infection 07/04/2023enal mdfjwow5907/04/2023enal mass07/04/2023Tinnitus, bilateral 07/04/2023isorder of miiayiu7607/04/20231120Ivofcio44/27/2023Mild depression 08/31/2022ostmenopausal atrophic bxgvnnxat14/27/2023Tongue, lmrijuzy77/27/2023 Tonsil stone08/31/2022ETD (Eustachian tube dysfunction), iliuigsmg80/27/2023 Urinary onjlleczq47/09/2020 Overview (07/04/2023): ==== 06/18/2023 ==== still voiding [...] No indication to repeat such. We discussed [facility] bladder solution will try to withhold [...] Resolved Problems ProblemNoted DateDiagnosed DateResolved DateHx of ktlbsmbsovlh28/27/2023 08/31/2022Vaginal uxtjnkfx62 Family History Medical HistoryRelationNameCommentsCancerFatherCOPDMotherHeart failureMotherNo Known DypxxuyiLfkrozOgjsjymgIsowYqwvpiOucxxvrqPkqnqbfa0UetlnkDbgnsrmhGzskgw DeceasedSister Social History Tobacco UseTypesPacks/DayYears UsedDateSmoking Tobacco: FormerCigarettesQuit: 1970Smokeless Tobacco: Never Tobacco Cessation:Counseling Given: Not Answered Alcohol UseStandard Drinks/WeekCommentsNot Currently0 (1 standard drink = 0.6 oz pure alcohol)PHQ-2AnswerDate RecordedPatient Health Questionnaire-2 Score0 4CommentsNoSex and Gender InformationValueDate RecordedSex Assigned at BirthNot on fileLegal VvfCeomtd49/15/2023 9:27 PM EDTGender Identity Not on fileSexual OrientationNot on file Last Filed Vital Signs Vital SignReadingTime TakenCommentsBlood Ykmzkwyn348/62007/04/2023 2:00 PM EDT Pulse--Temperature--Respiratory Rate--Oxygen Saturation--Inhaled Oxygen Concentration--Ibmdqk15.9 kg (127 lb 9.6 oz)07/04/2023 2:00 PM RPKYdoizr930.1 cm (5' 5 )07/04/2023 2:00 PM EDTBody Mass Index21.23007/04/2023 2:00 PM EDT Plan of Treatment [place] [phone] Care Teams Team MemberRelationshipSpecialtyStart DateEnd Date Dmitri Hess MD [address] [place] [address] [place] [address] [facility]
--- NOTE | 2025-01-26 13:35 | MM_ITS ---
Patient Name: DOLLY RICHTER MR#: [id number] : 1955 Exam Date: 01/26/2025 Ordering Doctor: DR RICKY DONG RADIOLOGY REPORT PROCEDURE: MM TOMOSYNTHESIS SCREENING BI COMPARISON: MM TOMOSYNTHESIS SCREENING BI, 06/10/2018. INDICATIONS: Screening Calculator Name NCI Breast Cancer Risk Assessment Tool 5 Year Breast Cancer Risk 1.30% Lifetime Breast Cancer Risk 3.50% Personal Breast Cancer No Personal Ovarian Cancer No Treatments Hysterectomy Family Cancers Father with lung cancer at age 60. LOCATION: [facility] BREAST COMPOSITION: There are scattered areas of fibroglandular density. FINDINGS: DIAGNOSTIC CATEGORY 1--NEGATIVE. RIGHT BREAST: No significant suspicious finding. LEFT BREAST: No significant suspicious finding. RECOMMENDATIONS: ROUTINE MAMMOGRAM AND CLINICAL EVALUATION IN 12 MONTHS. Dictated by: Jorge Goldstein DO on 01/27/2025 at 10:33 Approved by: Jorge Goldstein DO on 01/27/2025 at 10:34
== END 2025-01-26 13:10 | disposition home or self-care (01) ==
LOC: MAMMO 13:09
PROVIDERS: PCP Family Medicine; Visit Provider Family Medicine
DX: Z12.31 Encounter for screening mammogram for malignant neoplasm of breast (principal); Z80.1 Family history of malignant neoplasm of trachea, bronchus and lung
CPT/HCPCS: 77063; 77067